=== PATIENT | female | born 1980 | race American Indian/Alaskan Native ===

== ENCOUNTER 2016-10-31 12:40 | Inpatient (IN) | payer MEDICAID ==
--- NOTE | 2016-10-31 13:49 | Emergency Department Report ---
Chief Complaint: Hyperglycemia Stated Complaint: SUGAR HIGH Time Seen by Provider: 10/31/16 13:46 - HPI History of Present Illness: 36 y/o female complain of felling weak and dizziness with frequent urination x 1 week.pt state been out insulin for 3 -4 months .pt denies any prior medication treatment .denies any injury at present . - ROS Review of Systems: per HPI - Exam Vital Signs: Vital Signs 10/31/16 13:25 Temperature 98.6 F Pulse Rate 111 H Respiratory 22 Rate Blood Pressure 153/113 O2 Sat by Pulse 99 Oximetry Physical Exam: GENERAL: The patient is well-developed and well-nourished. Patient is in NAD. HENT: Normocephalic. Atraumatic. Patient has moist mucous membranes. Throat: No erythema, swelling or exudates. EYES: Extraocular motions are intact, PERRL NECK: Supple. No meningitic signs are noted. There is no adenopathy noted. CHEST/LUNGS: Clear to auscultation bilaterally. No wheezing, rales or rhonchi noted. There is no respiratory distress noted. HEART/CARDIOVASCULAR: Regular rate and rhythm. Normal S1 S2. No murmurs, rubs , clicks, or gallops. ABDOMEN: Abdomen is soft, nontender.. Bowel sounds normoactive. There is no abdominal distention. Negative rebound tenderness. : Deferred. SKIN: There is no rash. There is no edema. There is no diaphoresis. NEURO: The patient is A&Ox3. The patient has no focal neurologic deficits. MUSCULOSKELETAL: There is no tenderness or deformity. There is no limitation range of motion. PSYCH: Pt has appropriate mood and affect. MSE screening note: Focused history and physical exam performed. Due to findings the following was ordered: ED Disposition for MSE Condition: Stable
[2016-10-31 15:09] LABS: INR 1.03 (0.87-1.13)
[2016-10-31 15:17] LABS: Anion Gap 23 mmol/L; BUN/Creatinine Ratio 8.75; Blood Urea Nitrogen 7 mg/dL (7-17); Calcium 9.6 mg/dL (8.4-10.2); Carbon Dioxide 21 mmol/L (22-30); Chloride 88.7 mmol/L (98-107); Creatine Kinase 81 units/L (30-135); Potassium 4.4 mmol/L (3.6-5.0); Sodium 128 mmol/L (137-145)
[2016-10-31 15:22] LABS: Creatine Kinase MB < 1.0 ng/mL (0.0-4.0)
[2016-10-31 15:25] LABS: Glucose 571 mg/dL (65-100)
[2016-10-31] MEDS ORDERED: NACL 0.9% 1000 ML 1,000 ML IV ONE (15:58)
[2016-10-31] MEDS ORDERED: ZOFRAN IV ONE (15:59)
--- NOTE | 2016-10-31 16:01 | Emergency Department Report ---
HPI - General Chief Complaint: Hyperglycemia Time Seen by Provider: 10/31/16 15:33 - HPI HPI: This is a 36-year-old Afro-Citizen Of The [place] female who presents to the emergency department with complaint of frequent urination, frequent thirst, nausea, vomiting, diarrhea. Patient also has been feeling dizzy with some intermittent blurry vision. Patient thinks that her sugar must be high. She has been out of both of her insulin for the past 3-4 weeks. She has a primary care doctor, Dr. Nelda Blanca, but missed her last appointment and therefore could not get a refill. She denies any fever, back pain, vaginal bleeding or discharge, abdominal pain. She has not taken anything for symptoms prior to presentation. No recent travel or sick contacts at home. ED Past Medical Hx - Past Medical History Hx Congestive Heart Failure: No Hx Diabetes: Yes Hx Deep Vein Thrombosis: No Hx Asthma: Yes (CHILDHOOD) Hx COPD: No Hx HIV: No Additional medical history: MORBID OBESITY - Surgical History Hx Pacemaker: No Hx Internal Defibrillator: No Additional Surgical History: X2. BOWEL REPAIR - Social History Smoking Status: Current Every Day Smoker - Medications Home Medications: Home Medications Medication Instructions Recorded Confirmed Last Taken Type Glimepiride 1 mg PO DAILY 09/27/15 07/30/16 10/17/15 History HYDROcodone/APAP 7.5-325 10 mg PO PRN PRN 09/27/15 07/30/16 Unknown History Cyclobenzaprine [Flexeril 10 MG 10 mg PO TID PRN #20 tablet 01/15/16 07/30/16 Unknown Rx TAB] Glimepiride [Amaryl] 2 mg PO QAM #60 tablet 01/17/16 07/30/16 Unknown Rx Sulfamethoxazole/Trimethoprim 1 each PO BID #14 tablet 01/17/16 07/30/16 Unknown Rx [Bactrim DS TAB] HYDROcodone/APAP 5-325 [[place] 1 - 2 each PO Q6HR PRN #12 tablet 06/03/16 Unknown Rx 5/325] Ibuprofen [Motrin 800 MG tab] 800 mg PO Q8HR PRN #20 tablet 06/03/16 07/30/16 Unknown Rx Furosemide [Lasix TAB] 40 mg PO QDAY #30 tablet 08/03/16 Unknown Rx Insulin Glargine [Lantus VIAL] 40 units SUB-Q QHS 30 Days 08/03/16 Unknown Rx Insulin Glulisine [Apidra] 20 units SUB-Q AC 30 Days 08/03/16 Unknown Rx Losartan [Cozaar] 50 mg PO QDAY #30 tablet 08/03/16 Unknown Rx ED Review of Systems ROS: Stated complaint: SUGAR HIGH Other details as noted in HPI Comment: All other systems reviewed and negative Constitutional: denies: chills, fever Eyes: vision change. denies: eye pain ENT: denies: ear pain, throat pain Respiratory: denies: cough, shortness of breath, wheezing Cardiovascular: denies: palpitations, edema Endocrine: increased thirst, increased urine Gastrointestinal: nausea, vomiting, diarrhea Genitourinary: frequency. denies: dysuria Musculoskeletal: denies: back pain, joint swelling, arthralgia Skin: denies: rash, lesions Neurological: denies: headache, weakness, numbness Physical Exam - Physical Exam Vital Signs: Vital Signs 10/31/16 13:25 Temperature 98.6 F Pulse Rate 111 H Respiratory 22 Rate Blood Pressure 153/113 O2 Sat by Pulse 99 Oximetry Physical Exam: GENERAL: The patient is well-developed well-nourished. HEENT: Normocephalic. Atraumatic. Extraocular motions are intact. Patient has moist mucous membranes. NECK: Supple. Trachea is midline. CHEST/LUNGS: Clear to auscultation. There is no respiratory distress noted. HEART/CARDIOVASCULAR: Regular. There is mild tachycardia. There is no gallop rub or murmur. ABDOMEN: Abdomen is soft, nontender. Patient has normal bowel sounds. There is no abdominal distention. Morbidly obese habitus. SKIN: There is no rash. There is no diaphoresis. NEURO: The patient is awake, alert, and oriented. The patient is cooperative. The patient has no focal neurologic deficits. The patient has normal speech. MUSCULOSKELETAL: There is no tenderness or deformity. There is no limitation range of motion. There is no evidence of acute injury. ED Course Vital Signs 10/31/16 13:25 Temperature 98.6 F Pulse Rate 111 H Respiratory 22 Rate Blood Pressure 153/113 O2 Sat by Pulse 99 Oximetry ED Medical Decision Making - Lab Data Result diagrams: 10/31/16 14:19 - EKG Data -: EKG Interpreted by Me EKG shows normal: sinus rhythm, axis, intervals, QRS complexes, ST-T waves Rate: normal - EKG Data When compared to previous EKG there are: previous EKG unavailable Interpretation: normal EKG - Medical Decision Making 36-year-old female presents with some nausea, vomiting, dizziness, intermittent blurry vision and uncontrolled diabetes. Patient has a history of noncompliance and uncontrolled diabetes in the past. Patient is been out of her meds for the past 2-3 weeks. Patient appears to be in early diabetic ketoacidosis. Patient has some acidity with a venous pH of about 7.3. She has 17 ketones in the serum. She has an anion gap of 23 and her blood sugar in the serum is 570. Patient started on insulin drip and given IV fluid resuscitation. Patient admitted to the hospital for further evaluation and treatment and has been accepted for admission by the hospitalist, Dr. Dawkins. - Differential Diagnosis DKA, HHNK, viral syndrome Critical Care Time: No Critical care attestation.: If time is entered above; I have spent that time in minutes in the direct care of this critically ill patient, excluding procedure time. ED Disposition Clinical Impression: Hyponatremia, Hyperglycemia DKA (diabetic ketoacidoses) Qualifiers: Diabetes mellitus type: type 1 Diabetes mellitus complication detail: without coma Qualified Code(s): E10.10 - Type 1 diabetes mellitus with ketoacidosis without coma Morbid obesity Qualifiers: Obesity type: unspecified obesity type Qualified Code(s): E66.01 - Morbid ( severe) obesity due to excess calories Disposition: OP ADMITTED IP TO THIS HOSP Is pt being admited?: Yes Condition: Stable Instructions: Diabetic Ketoacidosis (ED) Time of Disposition: 16:52
--- NOTE | 2016-10-31 16:12 | Admit Criteria Form ---
Admission Criteria Documentation: HYPONATREMIA; HYPERNATREMIA; HYPOKALEMIA; HYPERKALEMIA; HYPOCALCEMIA; HYPERCALCEMIA Clinical Indications for Inpatient Care (Place 'X' for any and all applicable criteria): Ongoing inpatient care may be indicated for ANY ONE of the following [G](1)(2)(3 )(5): [X ]I. Hyponatremia with ANY ONE of the following: [ X]a) Sodium less than 130 mEq/L (mmol/L) (new) (6)(22) [ ]b) Sodium less than 135 mEq/L (mmol/L) with ANY ONE of the following: [ ]i) Severe medical etiology requiring inpatient management (eg, heart failure, hypovolemia) [ ]ii) Altered mental status [ ]iii) Seizures [ ]II. Hypernatremia with ANY ONE of the following: [ ]a) Sodium greater than 155 mEq/L (mmol/L) [ ]b) Sodium greater than 150 mEq/L (mmol/L) with ANY ONE of the following: [ ] i) Altered mental status [ ]ii) Seizures [ ]iii) Severe medical etiology (eg, hypovolemia, diabetes insipidus) [ ]iv) Severe weakness [ ]v) Severe medical etiology (eg, hemolysis, infection, drug overdose) [ ]III. Hypokalemia with ANY ONE of the following: [ ]a) Potassium less than 2.5 mEq/L (mmol/L) despite outpatient and emergency treatment [ ]b) Potassium less than 3.0 mEq/L (mmol/L) with ANY ONE of the following: [ ]i) Weakness [ ]ii) Cardiac abnormality (eg, arrhythmia, conduction disturbance) [ ]iii) Cardiac ischemia [ ]iv) Ileus [ ]v) Ongoing medical cause requiring inpatient management. ( e.g., acute renal wasting, SIADH) [ ]vi) Other severe symptoms [ ] IV. Hyperkalemia with ANY ONE of the following: [ ]a) Potassium greater than 6.5 mEq/L (mmol/L) [ ]b) Potassium greater than 5 mEq/L (mmol/L) with ANY ONE of the following: [ ]i) Severe ECG findings [H] [ ]ii) Acute worsening of renal failure (creatinine greater than 2.5 mg/dL (221 micromoles/L) or significant elevation for age and size) [ ] V. Hypocalcemia with ANY ONE of the following: [ ]a) Calcium less than 7 mg/dL (1.75 mmol/L) despite outpatient and emergency treatment(19) [ ]b) Calcium less than 8 mg/dL (2 mmol/L) with significant symptoms or findings; examples include: [ ]i) Cardiac abnormality (eg, arrhythmia or conduction disturbance) [ ]ii) Altered mental status [ ]iii) Seizures [ ]iv) Breathing difficulty [ ]v) Muscle spasms [ ]. Hypercalcemia with ANY ONE of the following: [ ]a) Calcium greater than 14 mg/dL (3.5 mmol/L) [ ]b) Calcium greater than 12 mg/dL (3 mmol/L) with ANY ONE of the following: [ ]i) Significant dehydration or hypovolemia as indicated by ANY ONE of the following(2): [ ]1. Clinically significant dehydration as indicated by ANY ONE of the following: [ ]A. Acute loss of weight from baseline (5% of body weight in adults, 9% in pediatric patients) [ ]B. Hemodynamic instability [ ]C. Acute renal failure [ ]D. Serum sodium greater than 150 mEq/L (mmol/L) [ ]2) Dehydration that is persistent indicated by ALL of the following: [ ]A. Oral rehydration therapy not tolerated or insufficient to adequately correct dehydration [ ]B. Appropriate intravenous treatment (eg, fluids ) does not readily correct dehydration ie, after 12 to 24 hours of treatment) [ ]ii) Significant symptoms or findings; examples include: [ ]1) Altered mental status [ ]2) Cardiac abnormality (eg, arrhythmia, conduction disturbance) [ ]3) Cardiac abnormality (eg, arrhythmia, conduction disturbance) The original [facility] content created by [employer] has been revised. The portions of the content which have been revised are identified through the use of italic text or in bold, and [facility] has neither reviewed nor approved the modified material. All other unmodified content is copyright [facility] Please see references footnoted in the original [facility] edition 2016 Admission Criteria Met: Yes
[2016-10-31 16:17] LABS: Bacteria,Urine 1+ /HPF (Negative); Bilirubin,Urine NEG (Negative); Blood,Urine NEG (Negative); Ketones,Urine 20 mg/dL (Negative); Leukocyte Esterase,Urine MOD (Negative); Nitrite,Urine NEG (Negative); Protein,Urine <15 mg/dL mg/dL (Negative); Urobilinogen,Urine < 2.0 mg/dL (<2.0); WBC,Urine < 1.0 /HPF (0.0-6.0)
[2016-10-31] MEDS ORDERED: D50W (25GM) IV PRN (16:33)
[2016-10-31] MEDS ORDERED: NovoLIN R 100 UNITS in NACL 0.9% 99 ML IV SCH (17:00)
--- NOTE | 2016-10-31 17:25 | History and Physical Report ---
History of Present Illness Date of examination: 10/31/16 Date of admission: 10/31/16 Chief complaint: worsended weakness today urinary frequency for 3 weeks History of present illness: Miss Foss is a 36 yo AAF with DM 2 and has been non compliant with therapy for 3 weeks; she has been having urinary frequency without burning for 3 weeks with increased thirst; this worsened today with extreme weakness and fatigue; nausea but no vomitting; vaginal itching; no fever; was seen in the ER and started on inuslin Gtt for mild / early DKA Past History Past Medical History: diabetes, hypertension Past Surgical History: , bowel surgery (had injury to bowel at C section ) Social history: full code. denies: smoking, alcohol abuse, prescription drug abuse, IV drug use Family history: diabetes, hypertension Medications and Allergies Allergies Allergy/AdvReac Type Severity Reaction Status Date / Time lactose Allergy Unknown Unknown Verified 07/29/15 17:59 penicillin G Allergy Dizziness Verified 09/27/15 15:55 clarithromycin [From Biaxin] AdvReac Shortness Verified 07/29/15 17:59 of Breath Penicillins AdvReac Shortness Verified 07/29/15 17:59 of Breath Home Medications Medication Instructions Recorded Confirmed Last Taken Type Glimepiride 1 mg PO DAILY 09/27/15 07/30/16 10/17/15 History HYDROcodone/APAP 7.5-325 10 mg PO PRN PRN 09/27/15 07/30/16 Unknown History Cyclobenzaprine [Flexeril 10 MG 10 mg PO TID PRN #20 tablet 01/15/16 07/30/16 Unknown Rx TAB] Glimepiride [Amaryl] 2 mg PO QAM #60 tablet 01/17/16 07/30/16 Unknown Rx Sulfamethoxazole/Trimethoprim 1 each PO BID #14 tablet 01/17/16 07/30/16 Unknown Rx [Bactrim DS TAB] HYDROcodone/APAP 5-325 [[place] 1 - 2 each PO Q6HR PRN #12 tablet 06/03/16 Unknown Rx 5/325] Ibuprofen [Motrin 800 MG tab] 800 mg PO Q8HR PRN #20 tablet 06/03/16 07/30/16 Unknown Rx Furosemide [Lasix TAB] 40 mg PO QDAY #30 tablet 10/20/16 Unknown Rx Insulin Glargine [Lantus VIAL] 40 units SUB-Q QHS 30 Days 08/03/16 Unknown Rx Insulin Glulisine [Apidra] 20 units SUB-Q AC 30 Days 08/03/16 Unknown Rx Losartan [Cozaar] 50 mg PO QDAY #30 tablet 08/03/16 Unknown Rx Active Meds: Active Medications Dextrose (D50w (25gm)) 0 ml IV PRN PRN PRN Reason: Hypoglycemia Insulin Human Regular 100 (units/ Sodium Chloride) 100 mls @ 5 mls/hr IV TITR COURTNEY; 5 UNITS/HR PRN Reason: Protocol Review of Systems All systems: negative Constitutional: fatigue, weakness, malaise, no weight loss, no weight gain, no fever, no chills, no sweats Ears, nose, mouth and throat: no ear discharge, no tinnitis, no decreased hearing, no nose pain, no nasal congestion Breasts: normal Cardiovascular: no chest pain, no orthopnea, no palpitations, no rapid/ irregular heart beat Respiratory: cough with sputum, no hemoptysis, no shortness of breath, no wheezing Gastrointestinal: nausea, no vomiting, no diarrhea, no constipation Genitourinary Female: urinary frequency, no dysuria, no urgency Rectal: no pain, no incontinence, no bleeding Musculoskeletal: no neck stiffness, no neck pain, no shooting arm pain, no arm numbness/tingling, no low back pain Integumentary: no rash, no pruritis, no redness, no sores Neurological: no head injury, no transient paralysis, no paralysis, no weakness , no parathesias Psychiatric: no anxiety, no memory loss, no change in sleep habits, no sleep disturbances Endocrine: excessive thirst, polydipsia, polyuria, no cold intolerance, no heat intolerance, no polyphagia Hematologic/Lymphatic: no easy bruising, no easy bleeding Allergic/Immunologic: no urticaria, no allergic rhinitis Exam - Constitutional Vitals: Temp Pulse Resp BP Pulse Ox 98.6 F 94 H 12 131/91 96 10/31/16 13:25 10/31/16 16:00 10/31/16 16:00 10/31/16 16:00 10/31/16 16:00 General appearance: Present: no acute distress, obese (morbid) - EENT Eyes: Present: PERRL, EOM intact. Absent: scleral icterus, conjunctival injection ENT: hearing intact, clear oral mucosa, no oropharyngeal erythema, no poor dentition - Neck Neck: Present: supple, normal ROM. Absent: enlarged thyroid, masses or JVD - Respiratory Respiratory effort: normal Respiratory: negative: diminished, rales, rhonchi, wheezing - Cardiovascular Rhythm: regular Heart Sounds: Present: S1 & S2. Absent: gallop - Extremities Extremities: no ischemia, pulses intact, pulses symmetrical, No edema Peripheral Pulses: within normal limits - Abdominal General gastrointestinal: Present: soft, non-tender, non-distended, normal bowel sounds Female genitourinary: Present: deferred - Rectal Rectal Exam: deferred - Integumentary Integumentary: Present: clear - Musculoskeletal Musculoskeletal: strength equal bilaterally - Psychiatric Psychiatric: appropriate mood/affect, cooperative - Neurologic Neurologic: CNII-XII intact, moves all extremities Results - Labs CBC & Chem 7: 10/31/16 14:19 Labs: Abnormal lab results 10/31/16 10/31/16 10/31/16 Range/Units 13:29 14:19 15:21 Sodium 128 L (137-145) mmol/L Chloride 88.7 L (98-107) mmol/L Carbon Dioxide 21 L (22-30) mmol/L Glucose 571 H* (65-100) mg/dL POC Glucose > 500 H (70-105) Ur Specific [place] 1.033 H (1.003-1.030) Ketones (0.2-2.8) mg/dL 10/31/16 Range/Units 15:53 Sodium (137-145) mmol/L Chloride (98-107) mmol/L Carbon Dioxide (22-30) mmol/L Glucose (65-100) mg/dL POC Glucose (70-105) Ur Specific [place] (1.003-1.030) Ketones 17.2 H (0.2-2.8) mg/dL Assessment and Plan 1. Mild/ Early DKA - will admit as in patient to the ICU as more than 2 MN are needed for treatment; cont insulin gtt and transition to SC insulin when AG is less than 18; iniate DKA protocol; consult ICU team; counselled about the importance of compliance; npo except meds; Hb A1C 2. Benign HTN - restart home meds except lasix for now 3. Morbid obesity - life style modification discussed 4. Vaginal candidiasis- diflucan 5. DVT prophyalxis -lovenox CCT exclusive of all other billable procedures 35 minutes
[2016-10-31 17:42] LABS: Blood Urea Nitrogen 7 mg/dL (7-17); Calcium 9.2 mg/dL (8.4-10.2); Carbon Dioxide 22 mmol/L (22-30); Potassium 4.6 mmol/L (3.6-5.0); Sodium 133 mmol/L (137-145)
[2016-10-31 17:42] LABS: Basophils % (Auto) 0.9 % (0.0-1.8); Eosinophils % (Auto) 1.5 % (0.0-4.3); Hematocrit 41.9 % (30.3-42.9); Hemoglobin 13.5 gm/dl (10.1-14.3); Mean Corpuscular HGB Conc 32 % (30-34); Mean Corpuscular Hemoglobin 28 pg (28-32); Mean Corpuscular Volume 86 fl (79-97); Platelet Count 295 K/mm3 (140-440); Red Blood Count 4.91 M/mm3 (3.65-5.03); Red Cell Distribution Width 14.2 % (13.2-15.2); White Blood Count 8.4 K/mm3 (4.5-11.0)
[2016-10-31 17:43] LABS: Chloride 95.4 mmol/L (98-107)
[2016-10-31 18:00] LABS: Anion Gap 20 mmol/L; Glucose 500 mg/dL (65-100)
[2016-10-31] MEDS ORDERED: DIFLUCAN PO ONE (18:00)
[2016-10-31 18:01] LABS: Phosphorous 3.7 mg/dL (2.5-4.5)
[2016-10-31] MEDS ORDERED: APRESOLINE IV PRN (18:30)
[2016-10-31] MEDS ORDERED: MORPHINE ONE (18:30)
[2016-10-31] MEDS ORDERED: REGLAN IV PRN (18:30)
[2016-10-31] MEDS: MORPHINE IV PRN (18:36)
[2016-10-31] MEDS ORDERED: NACL 0.45% 1000 ML 1,000 ML IV SCH (19:30)
[2016-10-31 19:35] LABS: Anion Gap 21 mmol/L; BUN/Creatinine Ratio 8.75; Blood Urea Nitrogen 7 mg/dL (7-17); Calcium 9.5 mg/dL (8.4-10.2); Carbon Dioxide 22 mmol/L (22-30); Chloride 96.3 mmol/L (98-107); Glucose 283 mg/dL (65-100); Potassium 3.9 mmol/L (3.6-5.0); Sodium 135 mmol/L (137-145)
[2016-10-31 21:47] LABS: Anion Gap 20 mmol/L; BUN/Creatinine Ratio 8.75; Blood Urea Nitrogen 7 mg/dL (7-17); Calcium 9.3 mg/dL (8.4-10.2); Carbon Dioxide 23 mmol/L (22-30); Glucose 165 mg/dL (65-100); Sodium 137 mmol/L (137-145)
[2016-11-01 00:17] LABS: Anion Gap 21 mmol/L; Blood Urea Nitrogen 7 mg/dL (7-17); Calcium 9.1 mg/dL (8.4-10.2); Carbon Dioxide 23 mmol/L (22-30); Chloride 97.3 mmol/L (98-107); Glucose 170 mg/dL (65-100); Potassium 4.4 mmol/L (3.6-5.0); Sodium 137 mmol/L (137-145)
[2016-11-01] MEDS: MORPHINE IV PRN ×2 (07:32→19:25)
[2016-11-01] MEDS ORDERED: D5/0.45NS 1,000 ML IV SCH (08:00)
[2016-11-01] MEDS: COZAAR PO SCH (10:04)
[2016-11-01] MEDS: LOVENOX SUB-Q SCH (10:04)
[2016-11-01 10:22] LABS: Anion Gap 16 mmol/L; Blood Urea Nitrogen 7 mg/dL (7-17); Calcium 8.8 mg/dL (8.4-10.2); Carbon Dioxide 26 mmol/L (22-30); Chloride 97.7 mmol/L (98-107); Glucose 157 mg/dL (65-100); Potassium 3.8 mmol/L (3.6-5.0); Sodium 136 mmol/L (137-145)
--- NOTE | 2016-11-01 11:36 | Consultation ---
History of Present Illness - Reason for Consult Consult date: 11/01/16 DKA, ICU care Requesting physician: RODERICK BARTON - History of Present Illness 36 y/o female with diabetes, admitted with DKA. has been on insulin drip, now Anion Gap has closed and patient is ready for transition off drip. Past History Past Medical History: diabetes, hypertension Past Surgical History: , bowel surgery (had injury to bowel at C section ) Social history: full code. denies: smoking, alcohol abuse, prescription drug abuse, IV drug use Family history: diabetes, hypertension Medications and Allergies Allergies Allergy/AdvReac Type Severity Reaction Status Date / Time lactose Allergy Unknown Unknown Verified 07/29/15 17:59 penicillin G Allergy Dizziness Verified 09/27/15 15:55 clarithromycin [From Biaxin] AdvReac Shortness Verified 07/29/15 17:59 of Breath Penicillins AdvReac Shortness Verified 07/29/15 17:59 of Breath Home Medications Medication Instructions Recorded Confirmed Last Taken Type Furosemide [Lasix TAB] 40 mg PO QDAY #30 tablet 08/03/16 10/31/16 Unknown Rx Insulin Glargine [Lantus VIAL] 40 units SUB-Q QHS 30 Days 08/03/16 10/31/16 Unknown Rx Insulin Glulisine [Apidra] 20 units SUB-Q AC 30 Days 08/03/16 10/31/16 Unknown Rx Losartan [Cozaar] 50 mg PO QDAY #30 tablet 08/03/16 10/31/16 Unknown Rx Active Meds: Active Medications Dextrose (D50w (25gm)) 0 ml IV PRN PRN PRN Reason: Hypoglycemia Enoxaparin Sodium (Lovenox) 40 mg SUB-Q QDAY COURTNEY Last Admin: 11/01/16 10:04 Dose: 40 mg Hydralazine HCl (Apresoline) 10 mg IV Q4HR PRN PRN Reason: SBP >/=160mmHg Insulin Human Regular 100 (units/ Sodium Chloride) 100 mls @ 5 mls/hr IV TITR COURTNEY; 5 UNITS/HR PRN Reason: Protocol Last Titration: 11/01/16 07:57 Dose: 2 units/hr Sodium Chloride (Nacl 0.45% 1000 Ml) 1,000 mls @ 125 mls/hr IV DIRECT COURTNEY Last Admin: 10/31/16 20:00 Dose: 125 mls/hr Dextrose/Sodium Chloride (D5/0.45ns) 1,000 mls @ 125 mls/hr IV DIRECT COURTNEY Last Admin: 11/01/16 08:25 Dose: 125 mls/hr Losartan Potassium (Cozaar) 50 mg PO QDAY COURTNEY Last Admin: 11/01/16 10:04 Dose: 50 mg Metoclopramide HCl (Reglan) 10 mg IV Q6H PRN PRN Reason: Nausea And Vomiting Morphine Sulfate (Morphine) 2 mg IV Q4H PRN PRN Reason: Pain, Moderate (4-6) Last Admin: 11/01/16 07:32 Dose: 2 mg Review of Systems All systems: negative Exam - Constitutional Vitals: Temp Pulse Resp BP Pulse Ox 98.3 F 88 10 L 129/81 97 11/01/16 08:00 11/01/16 10:04 11/01/16 08:00 11/01/16 10:04 11/01/16 08:00 Results - Labs CBC & Chem 7: 10/31/16 17:20 11/01/16 09:48 Labs: Abnormal lab results 10/31/16 10/31/16 10/31/16 Range/Units 17:20 17:20 17:21 [place] % (Auto) 9.7 H (0.0-7.3) % Sodium 133 L (137-145) mmol/L Chloride 95.4 L (98-107) mmol/L Glucose 500 H (65-100) mg/dL POC Glucose (70-105) Hemoglobin A1c 11.2 H (4-6) % 10/31/16 10/31/16 10/31/16 Range/Units 17:42 18:45 19:02 [place] % (Auto) (0.0-7.3) % Sodium 135 L (137-145) mmol/L Chloride 96.3 L (98-107) mmol/L Glucose 283 H (65-100) mg/dL POC Glucose 422 H 333 H (70-105) Hemoglobin A1c (4-6) % 10/31/16 10/31/16 10/31/16 Range/Units 19:49 21:00 23:24 [place] % (Auto) (0.0-7.3) % Sodium (137-145) mmol/L Chloride 97.3 L (98-107) mmol/L Glucose 165 H 170 H (65-100) mg/dL POC Glucose 210 H (70-105) Hemoglobin A1c (4-6) % 11/01/16 11/01/16 11/01/16 Range/Units 00:57 02:10 03:03 [place] % (Auto) (0.0-7.3) % Sodium (137-145) mmol/L Chloride (98-107) mmol/L Glucose (65-100) mg/dL POC Glucose 185 H 159 H 132 H (70-105) Hemoglobin A1c (4-6) % 11/01/16 11/01/16 11/01/16 Range/Units 03:55 05:13 05:57 [place] % (Auto) (0.0-7.3) % Sodium (137-145) mmol/L Chloride (98-107) mmol/L Glucose (65-100) mg/dL POC Glucose 132 H 144 H 141 H (70-105) Hemoglobin A1c (4-6) % 11/01/16 11/01/16 Range/Units 06:45 09:48 [place] % (Auto) (0.0-7.3) % Sodium 136 L (137-145) mmol/L Chloride 97.7 L (98-107) mmol/L Glucose 157 H (65-100) mg/dL POC Glucose 139 H (70-105) Hemoglobin A1c (4-6) % Assessment and Plan 36 y/o female with dka 1. Now that anion GAP has closed, can transition over to regular insulin. And stop insulin drip 2. Will feed patient 3. If tolerates oral, then should be safe for transfer out of ICU. CCT 31 minutes.
--- NOTE | 2016-11-01 11:59 | Progress Note ---
Assessment and Plan Assessment and plan: 1. DKA due to poor compliance continue insulin drip, will transition to Subq insulins today 2. HTN continue current meds, BP controlled 3. Morbid obesity - life style modification discussed 4. Vaginal candidiasis- sp diflucan x 1 5. DVT prophyalxis -lovenox Critical Care time; 35 minutes History Interval history: she feels better, no vomiting, no cp, no wallace, no sob Hospitalist Physical - Physical exam Narrative exam: General: Patient appears well in no distress HEENT: MMM, EOMI cardiac: S1-S2 heard lungs: clear to auscultation, abdomen: soft, nontender, nondistended bowel sounds positive extremities: no edema clubbing or cyanosis Skin: no rash or lesion Neuro: no focal deficit Psych: appropriate behavior and mood, cognition intact - Constitutional Vitals: Temp Pulse Resp BP Pulse Ox 98.3 F 88 10 L 129/81 97 11/01/16 08:00 11/01/16 10:04 11/01/16 08:00 11/01/16 10:04 11/01/16 08:00 General appearance: Present: no acute distress, obese (morbid) Results - Labs CBC & Chem 7: 10/31/16 17:20 11/01/16 09:48 Labs: Laboratory Last Values WBC 8.4 K/mm3 (4.5-11.0) 10/31/16 17:20 RBC 4.91 M/mm3 (3.65-5.03) 10/31/16 17:20 Hgb 13.5 gm/dl (10.1-14.3) 10/31/16 17:20 Hct 41.9 % (30.3-42.9) 10/31/16 17:20 MCV 86 fl (79-97) 10/31/16 17:20 MCH 28 pg (28-32) 10/31/16 17:20 MCHC 32 % (30-34) 10/31/16 17:20 RDW 14.2 % (13.2-15.2) 10/31/16 17:20 Plt Count 295 K/mm3 (140-440) 10/31/16 17:20 Lymph % (Auto) 27.8 % (13.4-35.0) 10/31/16 17:20 [place] % (Auto) 9.7 % (0.0-7.3) H 10/31/16 17:20 Eos % (Auto) 1.5 % (0.0-4.3) 10/31/16 17:20 Baso % (Auto) 0.9 % (0.0-1.8) 10/31/16 17:20 Lymph # 2.4 K/mm3 (1.2-5.4) 10/31/16 17:20 [place] # 0.8 K/mm3 (0.0-0.8) 10/31/16 17:20 Eos # 0.1 K/mm3 (0.0-0.4) 10/31/16 17:20 Baso # 0.1 K/mm3 (0.0-0.1) 10/31/16 17:20 Seg Neutrophils % 60.1 % (40.0-70.0) 10/31/16 17:20 Seg Neutrophils # 5.1 K/mm3 (1.8-7.7) 10/31/16 17:20 PT 13.4 Sec. (12.2-14.9) 10/31/16 14:19 INR 1.03 (0.87-1.13) 10/31/16 14:19 VBG pH 7.336 (7.320-7.420) 10/31/16 15:53 Sodium 136 mmol/L (137-145) L 11/01/16 09:48 Potassium 3.8 mmol/L (3.6-5.0) 11/01/16 09:48 Chloride 97.7 mmol/L (98-107) L 11/01/16 09:48 Carbon Dioxide 26 mmol/L (22-30) 11/01/16 09:48 Anion Gap 16 mmol/L 11/01/16 09:48 BUN 7 mg/dL (7-17) 11/01/16 09:48 Creatinine 0.7 mg/dL (0.7-1.2) 11/01/16 09:48 Estimated GFR > 60 ml/min 11/01/16 09:48 BUN/Creatinine Ratio 10.00 % 11/01/16 09:48 Glucose 157 mg/dL (65-100) H 11/01/16 09:48 POC Glucose 139 (70-105) H 11/01/16 06:45 Hemoglobin A1c 11.2 % (4-6) H 10/31/16 17:20 Osmolality 303 Mosm/kg 10/31/16 19:02 Lactic Acid 1.6 mmol/L (0.7-2.0) 10/31/16 14:19 Calcium 8.8 mg/dL (8.4-10.2) 11/01/16 09:48 Phosphorus 3.7 mg/dL (2.5-4.5) 10/31/16 17:21 Magnesium 2.0 mg/dL (1.7-2.3) 10/31/16 17:21 Total Creatine Kinase 81 units/L (30-135) 10/31/16 14:19 CK-MB (CK-2) < 1.0 ng/mL (0.0-4.0) 10/31/16 14:19 CK-MB (CK-2) Rel Index 1.2 (0-4) 10/31/16 14:19 Troponin T < 0.010 ng/mL (0.00-0.029) 10/31/16 14:19 Urine Color Yellow (Yellow) 10/31/16 15:21 Urine Turbidity Clear (Clear) 10/31/16 15:21 Urine pH 6.0 (5.0-7.0) 10/31/16 15:21 Ur Specific [place] 1.033 (1.003-1.030) H 10/31/16 15:21 Urine Protein <15 mg/dl mg/dL (Negative) 10/31/16 15:21 Urine Glucose (UA) >=500 mg/dL (Negative) 10/31/16 15:21 Urine Ketones 20 mg/dL (Negative) 10/31/16 15:21 Urine Blood Neg (Negative) 10/31/16 15:21 Urine Nitrite Neg (Negative) 10/31/16 15:21 Urine Bilirubin Neg (Negative) 10/31/16 15:21 Urine Urobilinogen < 2.0 mg/dL (<2.0) 10/31/16 15:21 Ur Leukocyte Esterase Mod (Negative) 10/31/16 15:21 Urine WBC (Auto) < 1.0 /HPF (0.0-6.0) 10/31/16 15:21 Urine RBC (Auto) 10.0 /HPF (0.0-6.0) 10/31/16 15:21 U Epithel Cells (Auto) 1.0 /HPF (0-13.0) 10/31/16 15:21 Urine Bacteria (Auto) 1+ /HPF (Negative) 10/31/16 15:21 Urine Yeast (Budding) 1+ /HPF 10/31/16 15:21 Ketones 17.2 mg/dL (0.2-2.8) H 10/31/16 15:53
[2016-11-01] MEDS ORDERED: NOVOLOG SUB-Q SCH (12:00)
[2016-11-01] MEDS: NOVOLOG SUB-Q SCH ×4 (12:00→22:48)
[2016-11-01] MEDS ORDERED: LEVEMIR SUB-Q SCH ×2 (12:00→22:00)
[2016-11-01 18:28] LABS: Anion Gap 19 mmol/L; BUN/Creatinine Ratio 8.57; Blood Urea Nitrogen 6 mg/dL (7-17); Calcium 8.6 mg/dL (8.4-10.2); Carbon Dioxide 22 mmol/L (22-30); Chloride 99.7 mmol/L (98-107); Glucose 270 mg/dL (65-100); Potassium 3.7 mmol/L (3.6-5.0); Sodium 137 mmol/L (137-145)
[2016-11-02] MEDS: MORPHINE IV PRN ×2 (07:27→13:09)
[2016-11-02] MEDS: NOVOLOG SUB-Q SCH ×7 (08:30→22:42)
[2016-11-02] MEDS: LOVENOX SUB-Q SCH (10:25)
[2016-11-02] MEDS: COZAAR PO SCH (10:25)
--- NOTE | 2016-11-02 12:56 | Progress Note ---
Assessment and Plan Assessment and plan: 1. DKA due to poor compliance optmize subq insulins, counseled for 10 minutes about compliance 2. HTN continue current meds, BP controlled 3. Morbid obesity - life style modification discussed 4. Vaginal candidiasis- sp diflucan x 1 5. DVT prophyalxis -lovenox 6. Vaginal yeast infection likely 2/2 uncontrolled dm, miconazole pessary History Interval history: she feels better, no vomiting, no cp, no wallace, no sob, c/o vaginal itching and creamy white discharge Hospitalist Physical - Physical exam Narrative exam: General: Patient appears well in no distress HEENT: MMM, EOMI cardiac: S1-S2 heard lungs: clear to auscultation, abdomen: soft, nontender, nondistended bowel sounds positive extremities: no edema clubbing or cyanosis Skin: no rash or lesion Neuro: no focal deficit Psych: appropriate behavior and mood, cognition intact - Constitutional Vitals: Temp Pulse Resp BP Pulse Ox 98.1 F 74 14 102/67 94 11/02/16 12:00 11/02/16 12:00 11/02/16 12:00 11/02/16 12:00 11/02/16 12:00 General appearance: Present: no acute distress, obese (morbid) Results - Labs CBC & Chem 7: 10/31/16 17:20 11/01/16 17:53 Labs: Laboratory Last Values WBC 8.4 K/mm3 (4.5-11.0) 10/31/16 17:20 RBC 4.91 M/mm3 (3.65-5.03) 10/31/16 17:20 Hgb 13.5 gm/dl (10.1-14.3) 10/31/16 17:20 Hct 41.9 % (30.3-42.9) 10/31/16 17:20 MCV 86 fl (79-97) 10/31/16 17:20 MCH 28 pg (28-32) 10/31/16 17:20 MCHC 32 % (30-34) 10/31/16 17:20 RDW 14.2 % (13.2-15.2) 10/31/16 17:20 Plt Count 295 K/mm3 (140-440) 10/31/16 17:20 Lymph % (Auto) 27.8 % (13.4-35.0) 10/31/16 17:20 [place] % (Auto) 9.7 % (0.0-7.3) H 10/31/16 17:20 Eos % (Auto) 1.5 % (0.0-4.3) 10/31/16 17:20 Baso % (Auto) 0.9 % (0.0-1.8) 10/31/16 17:20 Lymph # 2.4 K/mm3 (1.2-5.4) 10/31/16 17:20 [place] # 0.8 K/mm3 (0.0-0.8) 10/31/16 17:20 Eos # 0.1 K/mm3 (0.0-0.4) 10/31/16 17:20 Baso # 0.1 K/mm3 (0.0-0.1) 10/31/16 17:20 Seg Neutrophils % 60.1 % (40.0-70.0) 10/31/16 17:20 Seg Neutrophils # 5.1 K/mm3 (1.8-7.7) 10/31/16 17:20 PT 13.4 Sec. (12.2-14.9) 10/31/16 14:19 INR 1.03 (0.87-1.13) 10/31/16 14:19 VBG pH 7.336 (7.320-7.420) 10/31/16 15:53 Sodium 137 mmol/L (137-145) 11/01/16 17:53 Potassium 3.7 mmol/L (3.6-5.0) 11/01/16 17:53 Chloride 99.7 mmol/L (98-107) 11/01/16 17:53 Carbon Dioxide 22 mmol/L (22-30) 11/01/16 17:53 Anion Gap 19 mmol/L 11/01/16 17:53 BUN 6 mg/dL (7-17) L 11/01/16 17:53 Creatinine 0.7 mg/dL (0.7-1.2) 11/01/16 17:53 Estimated GFR > 60 ml/min 11/01/16 17:53 BUN/Creatinine Ratio 8.57 % 11/01/16 17:53 Glucose 270 mg/dL (65-100) H 11/01/16 17:53 POC Glucose 376 (70-105) H 11/02/16 11:27 Hemoglobin A1c 11.2 % (4-6) H 10/31/16 17:20 Osmolality 303 Mosm/kg 10/31/16 19:02 Lactic Acid 1.6 mmol/L (0.7-2.0) 10/31/16 14:19 Calcium 8.6 mg/dL (8.4-10.2) 11/01/16 17:53 Phosphorus 3.7 mg/dL (2.5-4.5) 10/31/16 17:21 Magnesium 2.0 mg/dL (1.7-2.3) 10/31/16 17:21 Total Creatine Kinase 81 units/L (30-135) 10/31/16 14:19 CK-MB (CK-2) < 1.0 ng/mL (0.0-4.0) 10/31/16 14:19 CK-MB (CK-2) Rel Index 1.2 (0-4) 10/31/16 14:19 Troponin T < 0.010 ng/mL (0.00-0.029) 10/31/16 14:19 Urine Color Yellow (Yellow) 10/31/16 15:21 Urine Turbidity Clear (Clear) 10/31/16 15:21 Urine pH 6.0 (5.0-7.0) 10/31/16 15:21 Ur Specific [place] 1.033 (1.003-1.030) H 10/31/16 15:21 Urine Protein <15 mg/dl mg/dL (Negative) 10/31/16 15:21 Urine Glucose (UA) >=500 mg/dL (Negative) 10/31/16 15:21 Urine Ketones 20 mg/dL (Negative) 10/31/16 15:21 Urine Blood Neg (Negative) 10/31/16 15:21 Urine Nitrite Neg (Negative) 10/31/16 15:21 Urine Bilirubin Neg (Negative) 10/31/16 15:21 Urine Urobilinogen < 2.0 mg/dL (<2.0) 10/31/16 15:21 Ur Leukocyte Esterase Mod (Negative) 10/31/16 15:21 Urine WBC (Auto) < 1.0 /HPF (0.0-6.0) 10/31/16 15:21 Urine RBC (Auto) 10.0 /HPF (0.0-6.0) 10/31/16 15:21 U Epithel Cells (Auto) 1.0 /HPF (0-13.0) 10/31/16 15:21 Urine Bacteria (Auto) 1+ /HPF (Negative) 10/31/16 15:21 Urine Yeast (Budding) 1+ /HPF 10/31/16 15:21 Ketones 17.2 mg/dL (0.2-2.8) H 10/31/16 15:53
[2016-11-02] MEDS ORDERED: LEVEMIR SUB-Q SCH (22:00)
[2016-11-02] MEDS ORDERED: MONISTAT VG SCH (22:00)
[2016-11-02] MEDS: NEURONTIN PO SCH (22:35)
[2016-11-03] MEDS: MORPHINE IV PRN ×2 (07:33→14:35)
[2016-11-03] MEDS: NEURONTIN PO SCH ×2 (07:35→14:33)
[2016-11-03] MEDS: NOVOLOG SUB-Q SCH ×6 (08:46→17:11)
[2016-11-03] MEDS: LOVENOX SUB-Q SCH (10:48)
[2016-11-03] MEDS: COZAAR PO SCH (10:50)
--- NOTE | 2016-11-03 14:06 | Discharge Summary ---
Providers - Providers Date of Admission: 10/31/16 16:57 Attending physician: JOSE ALANIS MD Primary care physician: VIRAL DURAN MD Hospitalization Condition: Stable Hospital course: 28-year-old woman with a past medical history of uncontrolled diabetes who had traveled to [place], run out of insulin and did not have proximity to her doctor to get a new prescription. She went on to start having polyuria polydipsia feeling very unwell and fatigued lethargy. She was admitted to hospital with DKA, she was admitted to the ICU treated with IV insulin drip and IV fluids, she clinically improved and was counseled about the importance of adherence with her medications even when she is out of town. She had vaginal yeast infection for which was treated with Diflucan and miconazole. Discharge diagnoses 1. DKA due to poor compliance 2. HTN Continued on her home meds 3. Morbid obesity - life style modification discussed 3. Vaginal candidiasis- sp diflucan x 1 and miconazole pessary 4. Diabetic neuropathy Started on gabapentin during this admission Disposition: DISCHARGED TO HOME OR SELFCARE Time spent for discharge: 35 minutes Core Measure Documentation - Palliative Care Palliative Care/ Comfort Measures: Not Applicable - Core Measures Any of the following diagnoses?: none Exam - Constitutional Vitals: Temp Pulse Resp BP Pulse Ox 98.3 F 81 16 121/81 96 11/03/16 07:00 11/03/16 10:50 11/03/16 07:00 11/03/16 10:50 11/03/16 07:00 General appearance: Present: no acute distress, well-nourished - EENT Eyes: Present: PERRL ENT: hearing intact, clear oral mucosa - Neck Neck: Present: supple, normal ROM - Respiratory Respiratory effort: normal Respiratory: bilateral: CTA - Cardiovascular Heart Sounds: Present: S1 & S2. Absent: rub, click - Extremities Extremities: pulses symmetrical, No edema Peripheral Pulses: within normal limits - Abdominal General gastrointestinal: Present: soft, non-tender, non-distended, normal bowel sounds Female genitourinary: Present: normal - Integumentary Integumentary: Present: clear, warm, dry - Musculoskeletal Musculoskeletal: gait normal, strength equal bilaterally - Psychiatric Psychiatric: appropriate mood/affect, intact judgment & insight - Neurologic Neurologic: CNII-XII intact, moves all extremities Plan Follow up with: PRIMARY CARE, [Primary Care Provider] - 3-5 Days Prescriptions: Insulin Glargine [Lantus VIAL] 40 units SUB-Q QHS 30 Days Miconazole [Monistat Vag Suppos] 100 mg VG QHS #7 supp.vag Insulin Glulisine [Apidra] 20 units SUB-Q AC 30 Days Losartan [Cozaar] 50 mg PO QDAY #30 tablet Furosemide [Lasix TAB] 40 mg PO QDAY #30 tablet Gabapentin [Neurontin] 300 mg PO Q8HR #90 capsule
[2016-11-03 18:31] VITALS: BP 133/68
== END 2016-11-03 18:54 | disposition home or self-care (01) | DRG 638 ==
LOC: ED 12:40 → CC1 16:57 → 3A 11-02 18:34
PROVIDERS: ADMIT Hospitalist; ATTEND Internal Medicine
DX: E10.10 Type 1 diabetes mellitus with ketoacidosis without coma (principal); E87.1 Hypo-osmolality and hyponatremia; Z68.44 Body mass index [BMI] 60.0-69.9, adult; E66.01 Morbid (severe) obesity due to excess calories; B37.3 Candidiasis of vulva and vagina; I10 Essential (primary) hypertension; J45.909 Unspecified asthma, uncomplicated; E10.40 Type 1 diabetes mellitus with diabetic neuropathy, unspecified; F17.200 Nicotine dependence, unspecified, uncomplicated; Z79.899 Other long term (current) drug therapy; Z83.3 Family history of diabetes mellitus; Z82.49 Family history of ischemic heart disease and other diseases of the circulatory system; Z88.0 Allergy status to penicillin; Z88.1 Allergy status to other antibiotic agents; Z91.011 Allergy to milk products; Z71.89 Other specified counseling
CPT/HCPCS: 36415; 80048; 81001; 82010; 82140; 82550; 82553; 82805; 82962; 83036; 83735; 83930; 84100; 84484; 85025; 85610; 93005; 93010; 96361; 96374; J1650; J1815; J1818; J2270; J2405; J2765; J7030

== ENCOUNTER 2017-03-13 16:31 | Emergency (ER) | payer MEDICAID ==
[2017-03-13 18:29] LABS: Hematocrit 41.7 % (30.3-42.9); Hemoglobin 13.4 gm/dl (10.1-14.3); Mean Corpuscular HGB Conc 32 % (30-34); Mean Corpuscular Hemoglobin 28 pg (28-32); Mean Corpuscular Volume 87 fl (79-97); Platelet Count 334 K/mm3 (140-440); Red Blood Count 4.79 M/mm3 (3.65-5.03); Red Cell Distribution Width 14.4 % (13.2-15.2)
[2017-03-13 18:30] LABS: Basophils % (Auto) 0.7 % (0.0-1.8); Eosinophils % (Auto) 1.8 % (0.0-4.3)
[2017-03-13 18:47] LABS: Anion Gap 18 mmol/L; BUN/Creatinine Ratio 11.42; Blood Urea Nitrogen 8 mg/dL (7-17); Calcium 9.4 mg/dL (8.4-10.2); Carbon Dioxide 26 mmol/L (22-30); Chloride 89.7 mmol/L (98-107); Potassium 4.6 mmol/L (3.6-5.0); Sodium 129 mmol/L (137-145)
[2017-03-13 19:32] LABS: Glucose 536 mg/dL (65-100)
[2017-03-13 20:51] LABS: Bilirubin,Urine NEG (Negative); Blood,Urine NEG (Negative); Ketones,Urine NEG (Negative); Leukocyte Esterase,Urine SM (Negative); Mucus,Urine FEW /HPF; Nitrite,Urine NEG (Negative); Protein,Urine <15 mg/dL mg/dL (Negative); Urobilinogen,Urine < 2.0 mg/dL (<2.0)
[2017-03-14] MEDS ORDERED: NACL 0.9% 1000 ML 1,000 ML IV ONE ×2 (00:51→03:09)
[2017-03-14 01:37] LABS: Alanine Aminotransferase 13 units/L (7-56); Albumin 3.1 g/dL (3.9-5); Albumin/Globulin Ratio 0.7 %; Alkaline Phosphatase 120 units/L (35-129); Lipase 21 units/L (13-60); Total Protein 7.4 g/dL (6.3-8.2)
[2017-03-14 02:01] LABS: Bilirubin,Direct < 0.2 mg/dL (0-0.2)
[2017-03-14] MEDS ORDERED: TYLENOL PO ONE (03:10)
--- NOTE | 2017-03-14 03:15 | Emergency Department Report ---
HPI - General Chief Complaint: Hyperglycemia Time Seen by Provider: 03/14/17 00:49 - HPI HPI: The patient is a 37-year-old female whom presents for evaluation of abdominal pain and elevated blood sugar. The patient reports 1 week of abdominal pain, epigastric in location, cramping in quality, 7/10 in severity, and associated with nausea, nonbilious emesis, polydipsia, and polyuria. She also shares that she found her blood sugar to be severely elevated earlier today. The patient denies fever, chest pain, dyspnea, cough, diarrhea, blood in the stool, dark tarry stool, dysuria, hematuria, flank pain, genital discharge. ED Past Medical Hx - Past Medical History Hx Congestive Heart Failure: No Hx Diabetes: Yes Hx Deep Vein Thrombosis: No Hx Arthritis: No Hx Asthma: Yes (CHILDHOOD) Hx COPD: No Hx HIV: No Additional medical history: MORBID OBESITY - Surgical History Hx Pacemaker: No Hx Internal Defibrillator: No Additional Surgical History: X2. BOWEL REPAIR - Social History Smoking Status: Current Every Day Smoker - Medications Home Medications: Home Medications Medication Instructions Recorded Confirmed Last Taken Type Furosemide [Lasix TAB] 40 mg PO QDAY #30 tablet 11/03/16 03/14/17 Unknown Rx Gabapentin [Neurontin] 300 mg PO Q8HR #90 capsule 11/03/16 03/14/17 Unknown Rx Insulin Glulisine [Apidra] 20 units SUB-Q AC 30 Days 11/03/16 03/14/17 Unknown Rx Losartan [Cozaar] 50 mg PO QDAY #30 tablet 11/03/16 03/14/17 Unknown Rx Miconazole [Monistat Vag Suppos] 100 mg VG QHS #7 supp.vag 11/03/16 03/14/17 Unknown Rx [place] Solostar 50 units SUB-Q HS #1500 units 03/14/17 Unknown Rx ED Review of Systems ROS: Stated complaint: HIGH BLOOD SUGAR Other details as noted in HPI Constitutional: denies: fever ENT: denies: throat or neck pain Respiratory: denies: cough, shortness of breath Cardiovascular: denies: chest pain Endocrine: denies unexplained weight loss or gain Gastrointestinal: denies: abdominal pain, nausea Genitourinary: denies: dysuria Musculoskeletal: denies: leg swelling Skin: denies: rash Neurological: denies: headache Hematological/Lymphatic: denies: easy bleeding or easy bruising Psych: denies sadness or hopelessness Physical Exam - Physical Exam Vital Signs: Vital Signs 03/13/17 03/14/17 18:08 01:57 Temperature 97.9 F Pulse Rate 95 H 96 H Respiratory 16 16 Rate Blood Pressure 145/91 Blood Pressure 122/77 [Left] O2 Sat by Pulse 99 95 Oximetry Physical Exam: General: well-nourished, well-developed, no acute distress Head: Normocephalic, atraumatic Eyes: normal sclera ENT: Mucous membranes are pale and dry Neck: No neck stiffness, no cervical adenopathy Respiratory: Breath sounds equal bilaterally, no wheezing, rales, or rhonchi Cardio: S1 and S2 present, no murmurs, rubs, gallops, capillary refill is delayed Abdomen: Normoactive bowel sounds, soft abdomen, epigastric tenderness to palpation present, no rigidity, no guarding or rebound tenderness Musc: No pitting edema Skin: No rash Neuro: no facial drooping, normal speech Psych: Normal affect ED Course Vital Signs 03/13/17 03/14/17 18:08 01:57 Temperature 97.9 F Pulse Rate 95 H 96 H Respiratory 16 16 Rate Blood Pressure 145/91 Blood Pressure 122/77 [Left] O2 Sat by Pulse 99 95 Oximetry ED Medical Decision Making - Lab Data Result diagrams: 03/13/17 Unknown 03/13/17 Unknown - Medical Decision Making The patient was seen and examined by myself. The patient is placed on a telemetry monitor and continuous pulse ox. On initial evaluation, the patient was found to be in no distress. Evaluation orders are placed. IV access is established and the patient is given 1 L normal saline fluid bolus and Zofran for nausea, and a tab of tylenol for her pain. Lab results reveal significantly elevated glucose of 536, with normal venous pH, anion gap, and bicarbonate, not consistent with DKA. The patient is given multiple IV insulin doses for treatment of her hyperglycemia. On repeat Accu-Chek the patient's blood sugars found to be <300. The patient was reevaluated and reported that their symptoms were markedly improved. The patient is stable for discharge with outpatient follow-up. The patient is given follow-up and return instructions. The patient expressed understanding and agreed with the plan. The patient is discharged in stable condition. Critical care attestation.: If time is entered above; I have spent that time in minutes in the direct care of this critically ill patient, excluding procedure time. ED Disposition Clinical Impression: Acute hyperglycemia, Dehydration, Abdominal pain, acute, epigastric, Hyponatremia Disposition: DISCHARGED TO HOME OR SELFCARE Is pt being admited?: No Does the pt Need Aspirin: No Condition: Stable Instructions: Diabetes Mellitus Type 2 in Adults (ED), Dehydration (ED), Acute Abdominal Pain (ED) Prescriptions: Geoffrey Pillai 50 units SUB-Q HS #1500 units Referrals: VERNON ALEMAN DO [Primary Care Provider] - 3-5 Days Time of Disposition: 03:15
[2017-03-14] MEDS ORDERED: ZOFRAN IV ONE (03:19)
[2017-03-14 07:15] VITALS: BP 123/69
== END 2017-03-14 07:00 | disposition home or self-care (01) ==
LOC: ED 16:31
DX: E11.65 Type 2 diabetes mellitus with hyperglycemia (principal); E86.0 Dehydration; R10.13 Epigastric pain; E87.1 Hypo-osmolality and hyponatremia; J45.909 Unspecified asthma, uncomplicated; E66.01 Morbid (severe) obesity due to excess calories; F17.200 Nicotine dependence, unspecified, uncomplicated
CPT/HCPCS: 36415; 80048; 80074; 81001; 82805; 82962; 83690; 84703; 85025; 96361; 96374; 96375; 96376; 99284; J2405; J7030; J1815

== ENCOUNTER 2017-09-07 17:53 | Inpatient (IN) | payer MEDICAID ==
[2017-09-07 19:16] LABS: Bacteria,Urine 1+ /HPF (Negative); Bilirubin,Urine NEG (Negative); Blood,Urine SM (Negative); Ketones,Urine 80 mg/dL (Negative); Leukocyte Esterase,Urine LG (Negative); Mucus,Urine FEW /HPF; Nitrite,Urine NEG (Negative); Protein,Urine <15 mg/dL mg/dL (Negative); Urobilinogen,Urine < 2.0 mg/dL (<2.0)
[2017-09-07 19:31] LABS: Anion Gap 25 mmol/L; BUN/Creatinine Ratio 13; Blood Urea Nitrogen 9 mg/dL (7-17); Calcium 9.7 mg/dL (8.4-10.2); Carbon Dioxide 20 mmol/L (22-30); Chloride 89.6 mmol/L (98-107); Sodium 130 mmol/L (137-145)
[2017-09-07 19:53] LABS: Glucose 649 mg/dL (65-100)
[2017-09-07 20:27] LABS: Basophils % (Auto) 0.4 % (0.0-1.8); Eosinophils % (Auto) 0.8 % (0.0-4.3); Hematocrit 42.4 % (30.3-42.9); Hemoglobin 13.3 gm/dl (10.1-14.3); Mean Corpuscular HGB Conc 31 % (30-34); Mean Corpuscular Hemoglobin 28 pg (28-32); Mean Corpuscular Volume 90 fl (79-97); Platelet Count 314 K/mm3 (140-440); Red Blood Count 4.73 M/mm3 (3.65-5.03); Red Cell Distribution Width 15.6 % (13.2-15.2); White Blood Count 11.2 K/mm3 (4.5-11.0)
[2017-09-07] MEDS ORDERED: NACL 0.9% 1000 ML 1,000 ML IV ONE (21:32)
[2017-09-07] MEDS ORDERED: D50W (25GM) Syringe IV PRN (21:32)
[2017-09-07] MEDS ORDERED: ZOFRAN IV ONE (21:42)
[2017-09-07] MEDS ORDERED: NITRO-BID 2% TP ONE (21:42)
[2017-09-07] MEDS ORDERED: SUBLIMAZE IV ONE (21:42)
--- NOTE | 2017-09-07 21:46 | Emergency Department Report ---
HPI - General Chief Complaint: Hyperglycemia Time Seen by Provider: 09/07/17 21:32 - HPI HPI: Room 8 The patient is a 37-year-old female presenting with a chief complaint of hyperglycemia. The patient states she checked her blood sugar this afternoon and it read high prompting her to come to the ED. The patient states she is not had her Tujeo for 2-3 weeks. The patient has had intermittent compliance with her NovoLog. The patient states for 2 weeks she has had a constant substernal chest pain and feels as though someone is sitting on her chest. Patient also admits to midepigastric abdominal pain chronically. The patient states she has had shortness of breath and nausea/vomiting with her chest pain. The patient admits to polyuria for one week. The patient states she's never had a stress test or cardiac catheterization Location: Chest, see above Duration: [See above] Quality: Pressure Severity: 05/24 Modifying factors: [see above] Context: [see above] Mode of transportation: Unknown ED Past Medical Hx - Past Medical History Hx Diabetes: Yes Hx Asthma: Yes (CHILDHOOD) Additional medical history: MORBID OBESITY - Surgical History Additional Surgical History: X2. BOWEL REPAIR - Family History Family history: no significant - Social History Smoking Status: Current Every Day Smoker (1/3 pack per day) Substance Use Type: None (denies illicit drug use) - Medications Home Medications: Home Medications Medication Instructions Recorded Confirmed Last Taken Type Furosemide [Lasix TAB] 40 mg PO QDAY #30 tablet 11/03/16 03/14/17 Unknown Rx Gabapentin [Neurontin] 300 mg PO Q8HR #90 capsule 11/03/16 03/14/17 Unknown Rx Insulin Glulisine [Apidra] 20 units SUB-Q AC 30 Days units 11/03/16 03/14/17 Unknown Rx Losartan [Cozaar] 50 mg PO QDAY #30 tablet 11/03/16 03/14/17 Unknown Rx Miconazole [Monistat Vag Suppos] 100 mg VG QHS #7 supp.vag 11/03/16 03/14/17 Unknown Rx Toujeo Solostar 50 units SUB-Q HS #1500 units 03/14/17 Unknown Rx ED Review of Systems ROS: Stated complaint: HYPERGLYCEMIC Other details as noted in HPI Constitutional: malaise. denies: diaphoresis Respiratory: shortness of breath Cardiovascular: chest pain Endocrine: increased urine Gastrointestinal: abdominal pain, nausea, vomiting Genitourinary: frequency Musculoskeletal: myalgia Physical Exam - Physical Exam Vital Signs: Vital Signs 09/07/17 09/07/17 18:05 20:53 Temperature 98.5 F 98.9 F Pulse Rate 119 H 109 H Respiratory 22 20 Rate Blood Pressure 140/88 Blood Pressure 121/65 [Left] O2 Sat by Pulse 99 97 Oximetry Physical Exam: GENERAL: The patient is well-developed well-nourished female lying on stretcher not appearing to be in acute distress. [] HEENT: Normocephalic. Atraumatic. Extraocular motions are intact. Patient has moist mucous membranes. NECK: Supple. Trachea midline CHEST/LUNGS: Clear to auscultation. There is no respiratory distress noted. HEART/CARDIOVASCULAR: Regular. There is tachycardia. There is no gallop rub or murmur. ABDOMEN: Abdomen is soft, with tenderness to palpation in the midepigastric region. Patient has normal bowel sounds. There is no abdominal distention. SKIN: There is no rash. There is no edema. There is no diaphoresis. NEURO: The patient is awake, alert, and oriented. The patient is cooperative. The patient has normal speech MUSCULOSKELETAL: There is no evidence of acute injury. ED Course Vital Signs 09/07/17 09/07/17 18:05 20:53 Temperature 98.5 F 98.9 F Pulse Rate 119 H 109 H Respiratory 22 20 Rate Blood Pressure 140/88 Blood Pressure 121/65 [Left] O2 Sat by Pulse 99 97 Oximetry ED Medical Decision Making - Lab Data Result diagrams: 09/07/17 18:44 09/07/17 18:44 Laboratory Tests 09/07/17 09/07/17 09/07/17 18:10 18:14 18:44 WBC 11.2 H RBC 4.73 Hgb 13.3 Hct 42.4 MCV 90 MCH 28 MCHC 31 RDW 15.6 H Plt Count 314 Lymph % (Auto) 18.2 Day % (Auto) 8.1 H Eos % (Auto) 0.8 Baso % (Auto) 0.4 Lymph # 2.0 Day # 0.9 H Eos # 0.1 Baso # 0.0 Seg Neutrophils % 72.5 H Seg Neutrophils # 8.1 H VBG pH Sodium Potassium Chloride Carbon Dioxide Anion Gap BUN Creatinine Estimated GFR BUN/Creatinine Ratio Glucose POC Glucose > 500 H Calcium Phosphorus Magnesium Total Creatine Kinase CK-MB (CK-2) CK-MB (CK-2) Rel Index Troponin T Urine Color Yellow Urine Turbidity Clear Urine pH 5.0 Ur Specific [place] 1.031 H Urine Protein <15 mg/dl Urine Glucose (UA) >=500 Urine Ketones 80 Urine Blood Sm Urine Nitrite Neg Urine Bilirubin Neg Urine Urobilinogen < 2.0 Ur Leukocyte Esterase Lg Urine WBC (Auto) 19.0 H Urine RBC (Auto) 47.0 U Epithel Cells (Auto) 1.0 Urine Bacteria (Auto) 1+ Urine Mucus Few Urine Yeast (Budding) 2+ 09/07/17 09/07/17 09/07/17 18:44 18:44 21:32 WBC RBC Hgb Hct MCV MCH MCHC RDW Plt Count Lymph % (Auto) Day % (Auto) Eos % (Auto) Baso % (Auto) Lymph # Day # Eos # Baso # Seg Neutrophils % Seg Neutrophils # VBG pH 7.310 L Sodium 130 L Potassium 5.0 Chloride 89.6 L Carbon Dioxide 20 L Anion Gap 25 BUN 9 Creatinine 0.7 Estimated GFR > 60 BUN/Creatinine Ratio 13 Glucose 649 H* POC Glucose Calcium 9.7 Phosphorus 4.00 Magnesium 2.10 Total Creatine Kinase CK-MB (CK-2) CK-MB (CK-2) Rel Index Troponin T Urine Color Urine Turbidity Urine pH Ur Specific [place] Urine Protein Urine Glucose (UA) Urine Ketones Urine Blood Urine Nitrite Urine Bilirubin Urine Urobilinogen Ur Leukocyte Esterase Urine WBC (Auto) Urine RBC (Auto) U Epithel Cells (Auto) Urine Bacteria (Auto) Urine Mucus Urine Yeast (Budding) 09/07/17 09/07/17 21:39 21:40 WBC RBC Hgb Hct MCV MCH MCHC RDW Plt Count Lymph % (Auto) Day % (Auto) Eos % (Auto) Baso % (Auto) Lymph # Day # Eos # Baso # Seg Neutrophils % Seg Neutrophils # VBG pH Sodium Potassium Chloride Carbon Dioxide Anion Gap BUN Creatinine Estimated GFR BUN/Creatinine Ratio Glucose POC Glucose Calcium Phosphorus Magnesium Total Creatine Kinase 84 CK-MB (CK-2) 1.1 CK-MB (CK-2) Rel Index 1.3 Troponin T < 0.010 Urine Color Urine Turbidity Urine pH Ur Specific [place] Urine Protein Urine Glucose (UA) Urine Ketones Urine Blood Urine Nitrite Urine Bilirubin Urine Urobilinogen Ur Leukocyte Esterase Urine WBC (Auto) Urine RBC (Auto) U Epithel Cells (Auto) Urine Bacteria (Auto) Urine Mucus Urine Yeast (Budding) Laboratory Tests 09/07/17 09/07/17 09/07/17 18:10 18:14 18:44 WBC 11.2 H RBC 4.73 Hgb 13.3 Hct 42.4 MCV 90 MCH 28 MCHC 31 RDW 15.6 H Plt Count 314 Lymph % (Auto) 18.2 Day % (Auto) 8.1 H Eos % (Auto) 0.8 Baso % (Auto) 0.4 Lymph # 2.0 Day # 0.9 H Eos # 0.1 Baso # 0.0 Seg Neutrophils % 72.5 H Seg Neutrophils # 8.1 H VBG pH Sodium Potassium Chloride Carbon Dioxide Anion Gap BUN Creatinine Estimated GFR BUN/Creatinine Ratio Glucose POC Glucose > 500 H Calcium Phosphorus Magnesium Total Creatine Kinase CK-MB (CK-2) CK-MB (CK-2) Rel Index Troponin T Urine Color Yellow Urine Turbidity Clear Urine pH 5.0 Ur Specific [place] 1.031 H Urine Protein <15 mg/dl Urine Glucose (UA) >=500 Urine Ketones 80 Urine Blood Sm Urine Nitrite Neg Urine Bilirubin Neg Urine Urobilinogen < 2.0 Ur Leukocyte Esterase Lg Urine WBC (Auto) 19.0 H Urine RBC (Auto) 47.0 U Epithel Cells (Auto) 1.0 Urine Bacteria (Auto) 1+ Urine Mucus Few Urine Yeast (Budding) 2+ 09/07/17 09/07/17 09/07/17 18:44 18:44 21:32 WBC RBC Hgb Hct MCV MCH MCHC RDW Plt Count Lymph % (Auto) Day % (Auto) Eos % (Auto) Baso % (Auto) Lymph # Day # Eos # Baso # Seg Neutrophils % Seg Neutrophils # VBG pH 7.310 L Sodium 130 L Potassium 5.0 Chloride 89.6 L Carbon Dioxide 20 L Anion Gap 25 BUN 9 Creatinine 0.7 Estimated GFR > 60 BUN/Creatinine Ratio 13 Glucose 649 H* POC Glucose Calcium 9.7 Phosphorus 4.00 Magnesium 2.10 Total Creatine Kinase CK-MB (CK-2) CK-MB (CK-2) Rel Index Troponin T Urine Color Urine Turbidity Urine pH Ur Specific [place] Urine Protein Urine Glucose (UA) Urine Ketones Urine Blood Urine Nitrite Urine Bilirubin Urine Urobilinogen Ur Leukocyte Esterase Urine WBC (Auto) Urine RBC (Auto) U Epithel Cells (Auto) Urine Bacteria (Auto) Urine Mucus Urine Yeast (Budding) 09/07/17 09/07/17 21:39 21:40 WBC RBC Hgb Hct MCV MCH MCHC RDW Plt Count Lymph % (Auto) Day % (Auto) Eos % (Auto) Baso % (Auto) Lymph # Day # Eos # Baso # Seg Neutrophils % Seg Neutrophils # VBG pH Sodium Potassium Chloride Carbon Dioxide Anion Gap BUN Creatinine Estimated GFR BUN/Creatinine Ratio Glucose POC Glucose Calcium Phosphorus Magnesium Total Creatine Kinase 84 CK-MB (CK-2) 1.1 CK-MB (CK-2) Rel Index 1.3 Troponin T < 0.010 Urine Color Urine Turbidity Urine pH Ur Specific [place] Urine Protein Urine Glucose (UA) Urine Ketones Urine Blood Urine Nitrite Urine Bilirubin Urine Urobilinogen Ur Leukocyte Esterase Urine WBC (Auto) Urine RBC (Auto) U Epithel Cells (Auto) Urine Bacteria (Auto) Urine Mucus Urine Yeast (Budding) - EKG Data -: EKG Interpreted by Ca EKG shows normal: sinus rhythm Rate: tachycardia (111 bpm) - EKG Data When compared to previous EKG there are: previous EKG unavailable Interpretation: other (no ischemic changes seen) - Differential Diagnosis DKA, ACS, GERD, pericarditis Critical care attestation.: If time is entered above; I have spent that time in minutes in the direct care of this critically ill patient, excluding procedure time. ED Disposition Clinical Impression: DKA (diabetic ketoacidoses), Chest pain, UTI (urinary tract infection) Disposition: OP ADMIT IP TO THIS HOSP Is pt being admited?: Yes Does the pt Need Aspirin: Yes Condition: Serious Instructions: Chest Pain (ED), Diabetic Ketoacidosis (ED) Referrals: PRIMARY CARE,MD [Primary Care Provider] - 3-5 Days Time of Disposition: 22:22 (hospitalist paged)
[2017-09-07] MEDS ORDERED: ASPIRIN PO ONE (21:48)
[2017-09-07 21:58] LABS: Creatine Kinase MB 1.1 ng/mL (0.0-4.0)
[2017-09-07 22:12] LABS: Magnesium 2.1 mg/dL (1.7-2.3)
[2017-09-07] MEDS ORDERED: BACTRIM DS PO ONE (22:14)
[2017-09-07 22:28] LABS: Anion Gap 24 mmol/L; BUN/Creatinine Ratio 13; Blood Urea Nitrogen 9 mg/dL (7-17); Calcium 9.2 mg/dL (8.4-10.2); Carbon Dioxide 19 mmol/L (22-30); Chloride 92.8 mmol/L (98-107); Potassium 4.7 mmol/L (3.6-5.0); Sodium 131 mmol/L (137-145)
[2017-09-07 22:50] LABS: Glucose 527 mg/dL (65-100)
[2017-09-07] MEDS: NovoLIN R 100 UNITS in NACL 0.9% 99 ML IV SCH (22:52)
[2017-09-07] MEDS ORDERED: ZOFRAN IV PRN (23:19)
[2017-09-07] MEDS ORDERED: MILK OF MAGNESIA PO PRN (23:19)
[2017-09-07] MEDS ORDERED: TYLENOL PO PRN (23:19)
[2017-09-07] MEDS ORDERED: DULCOLAX PR PRN (23:19)
--- NOTE | 2017-09-07 23:19 | History and Physical Report ---
History of Present Illness Date of examination: 09/07/17 History of present illness: 37-year-old woman with a history of hypertension, diabetes comes to the emergency room with complaints of nausea vomiting, multiple episodes. She checked her fingersticks today and it was high so she came to the emergency room. Patient stated she has been out of her insulin for 2 weeks. Also complaining of chest pain in the epigastric area 2 weeks, feels like someone sitting on her chest, constant, intensity 7/10, no radiation, cannot identify exacerbating or relieving factors. Admits to shortness of breath, palpitation. She has chronic abdominal pain does not change Review Of Systems: Constitutional: no weight loss Ears, eyes, nose, mouth and throat: no nasal congestion, no nasal discharge, no sinus pressure, blurry vision, diplopia Neck: No neck pain or rigidity. Cardiovascular: no orthopnea, palpitations Respiratory: No shortness of breath, cough Gastrointestinal: no hematochezia Genitourinary : no dysuria, frequency , hematuria Musculoskeletal: no muscle ache Integumentary: no rash, no pruritis Neurological: no parathesias, focal weakness Endocrine: no cold or heat intolerance, no polyuria or polydipsia Hematologic/Lymphatic: no easy bruising, no easy bleeding, no gland swelling Allergic/Immunologic: no urticaria, no angioedema. PAST MEDICAL HISTORY:hypertension, diabetes PAST SURGICAL HISTORY: 2, bowel repair FAMILY HISTORY:hypertension, diabetes SOCIAL HISTORY:SMOKE 1/3 pack a day, no alcohol or drugs Medications and Allergies Allergies Allergy/AdvReac Type Severity Reaction Status Date / Time lactose Allergy Unknown Unknown Verified 07/29/15 17:59 penicillin G Allergy Dizziness Verified 09/27/15 15:55 clarithromycin [From Biaxin] AdvReac Shortness Verified 07/29/15 17:59 of Breath Home Medications Medication Instructions Recorded Confirmed Last Taken Type RX: Furosemide [Lasix TAB] 40 mg PO QDAY #30 tablet 11/03/16 03/14/17 Unknown Rx RX: Gabapentin [Neurontin] 300 mg PO Q8HR #90 capsule 11/03/16 03/14/17 Unknown Rx RX: Insulin Glulisine [Apidra] 20 units SUB-Q AC 30 Days units 11/03/16 Unknown Rx RX: Losartan [Cozaar] 50 mg PO QDAY #30 tablet 11/03/16 03/14/17 Unknown Rx RX: Miconazole [Monistat Vag 100 mg VG QHS #7 supp.vag 11/03/16 03/14/17 Unknown Rx Suppos] Geoffrey Solisostar 50 units SUB-Q HS #1500 units 03/14/17 Unknown Rx Active Meds: Active Medications Dextrose (D50w (25gm) Syringe) 0 ml IV ONCE PRN PRN Reason: Hypoglycemia Insulin Human Regular 100 (units/ Sodium Chloride) 100 mls @ 10 mls/hr IV TITR COURTNEY; 10 UNITS/HR PRN Reason: Protocol Last Admin: 09/07/17 22:52 Dose: 8 units/hr, 8 mls/hr Exam - Physical Exam Narrative exam: Gen. appearance: Patient lying in bed in no acute distress HEENT: Normocephalic/atraumatic, pupils equal round reactive to light, extra alkaline movement intact, no scleral icterus, no JVD or thyromegaly or nodule, neck is supple, mucous membrane moist, no erythema or exudate Heart: S1-S2, regular rate and rhythm Lungs: Clear to auscultation bilateral breathing comfortable Abdomen: Positive bowel sounds, tender in mid abdomen, nondistended, no organomegaly Extremities: No edema, cyanosis, clubbing Neuro:: Oriented 3 , cranial nerves II-12 intact, speech, motor intact Skin: No rash, nodules, warm dry - Constitutional Vitals: Temp Pulse Resp BP Pulse Ox 98.9 F 112 H 20 132/89 100 09/07/17 20:53 09/07/17 21:53 09/07/17 21:58 09/07/17 21:53 09/07/17 21:58 Results - Labs CBC & Chem 7: 09/07/17 18:44 09/07/17 21:54 Labs: Abnormal lab results 09/07/17 09/07/17 09/07/17 Range/Units 18:10 18:14 18:44 WBC 11.2 H (4.5-11.0) K/mm3 RDW 15.6 H (13.2-15.2) % [place] % (Auto) 8.1 H (0.0-7.3) % [place] # 0.9 H (0.0-0.8) K/mm3 Seg Neutrophils % 72.5 H (40.0-70.0) % Seg Neutrophils # 8.1 H (1.8-7.7) K/mm3 VBG pH (7.320-7.420) Sodium (137-145) mmol/L Chloride (98-107) mmol/L Carbon Dioxide (22-30) mmol/L Glucose (65-100) mg/dL POC Glucose > 500 H (70-105) Ur Specific [place] 1.031 H (1.003-1.030) Urine WBC (Auto) 19.0 H (0.0-6.0) /HPF 09/07/17 09/07/17 09/07/17 Range/Units 18:44 18:44 21:54 WBC (4.5-11.0) K/mm3 RDW (13.2-15.2) % [place] % (Auto) (0.0-7.3) % [place] # (0.0-0.8) K/mm3 Seg Neutrophils % (40.0-70.0) % Seg Neutrophils # (1.8-7.7) K/mm3 VBG pH 7.310 L (7.320-7.420) Sodium 130 L 131 L (137-145) mmol/L Chloride 89.6 L 92.8 L (98-107) mmol/L Carbon Dioxide 20 L 19 L (22-30) mmol/L Glucose 649 H* 527 H* (65-100) mg/dL POC Glucose (70-105) Ur Specific [place] (1.003-1.030) Urine WBC (Auto) (0.0-6.0) /HPF 09/07/17 Range/Units 22:29 WBC (4.5-11.0) K/mm3 RDW (13.2-15.2) % [place] % (Auto) (0.0-7.3) % [place] # (0.0-0.8) K/mm3 Seg Neutrophils % (40.0-70.0) % Seg Neutrophils # (1.8-7.7) K/mm3 VBG pH (7.320-7.420) Sodium (137-145) mmol/L Chloride (98-107) mmol/L Carbon Dioxide (22-30) mmol/L Glucose (65-100) mg/dL POC Glucose 463 H (70-105) Ur Specific [place] (1.003-1.030) Urine WBC (Auto) (0.0-6.0) /HPF Assessment and Plan Assessment DKA Chest pain, rule out ACS UTI Hypertension Plan Admit to medicine Start IV fluids, insulin drip Check fingersticks, serial chemistry Check cardiac enzymes, stress test when off insulin drip Consult critical care DVT prophylaxis, iv morphine, iv levaquin
[2017-09-07] MEDS ORDERED: D5/0.45NS 1,000 ML IV SCH (23:45)
[2017-09-07] MEDS ORDERED: NACL 0.9% 1000 ML 1,000 ML IV SCH (23:45)
[2017-09-08 00:03] LABS: Anion Gap 30 mmol/L; BUN/Creatinine Ratio 13; Blood Urea Nitrogen 9 mg/dL (7-17); Calcium 9.2 mg/dL (8.4-10.2); Carbon Dioxide 16 mmol/L (22-30); Glucose 498 mg/dL (65-100); Potassium 4.1 mmol/L (3.6-5.0); Sodium 125 mmol/L (137-145)
[2017-09-08 00:08] LABS: Creatine Kinase 77 units/L (30-135)
[2017-09-08 00:10] LABS: Creatine Kinase MB < 1.0 ng/mL (0.0-4.0)
[2017-09-08] MEDS: LEVAQUIN 750MG/150ML 750 MG/150 ML BAG IV SCH (00:39)
[2017-09-08] MEDS: MORPHINE IV PRN ×5 (01:17→17:02)
[2017-09-08 03:02] LABS: Anion Gap 22 mmol/L; BUN/Creatinine Ratio 13; Blood Urea Nitrogen 9 mg/dL (7-17); Carbon Dioxide 19 mmol/L (22-30); Chloride 100.7 mmol/L (98-107); Glucose 213 mg/dL (65-100); Potassium 3.7 mmol/L (3.6-5.0); Sodium 138 mmol/L (137-145)
[2017-09-08] MEDS ORDERED: D5W/0.45% NACL/KCL 30 MEQ 30 MEQ/1,000 ML BAG IV SCH (04:00)
[2017-09-08] MEDS ORDERED: D5W/0.45% NACL/KCL 20 MEQ 20 MEQ/1,000 ML BAG IV SCH ×2 (04:00→11:00)
[2017-09-08 05:30] LABS: Creatine Kinase MB 1.2 ng/mL (0.0-4.0)
[2017-09-08 05:31] LABS: Creatine Kinase 95 units/L (30-135)
[2017-09-08 05:35] LABS: Anion Gap 21 mmol/L; BUN/Creatinine Ratio 15; Blood Urea Nitrogen 9 mg/dL (7-17); Calcium 8.8 mg/dL (8.4-10.2); Carbon Dioxide 17 mmol/L (22-30); Chloride 100.2 mmol/L (98-107); Glucose 254 mg/dL (65-100); Potassium 4.4 mmol/L (3.6-5.0); Sodium 134 mmol/L (137-145)
--- NOTE | 2017-09-08 09:04 | Progress Note ---
Assessment and Plan - DKA: On IVF, insulin drip per protocol. Blood sugar improving - Chest pain: serial Stephen are normal. Contiue with O2, NTG, ASA - UTI: Follow urine cultrue - Hypertension: Controlled with oral antihypertensive - DVT prophylaxis with Lovenox Critical care time spent was 32 mins Subjective Date of service: 09/08/17 Principal diagnosis: DKA, DM, metabolic acidosis Interval history: No new complaint. Discussed with pt's Nurse. No overnight event reported to me Objective - Constitutional Vitals: Vital Signs - 12hr 09/07/17 09/07/17 09/07/17 21:53 21:58 23:48 Temperature Pulse Rate 112 H 94 H Respiratory 20 18 Rate Blood Pressure 132/89 Blood Pressure 106/40 [Left] O2 Sat by Pulse 100 98 Oximetry 09/08/17 09/08/17 09/08/17 00:02 01:26 04:56 Temperature 98.8 F 98 F 98 F Pulse Rate 117 H 128 H 111 H Respiratory 18 18 18 Rate Blood Pressure Blood Pressure 110/60 123/72 115/62 [Left] O2 Sat by Pulse 96 98 96 Oximetry 09/08/17 04:58 Temperature Pulse Rate Respiratory 20 Rate Blood Pressure Blood Pressure [Left] O2 Sat by Pulse Oximetry General appearance: Present: no acute distress, well-nourished - EENT Eyes: PERRL, EOM intact - Neck Neck: supple, normal ROM - Respiratory Respiratory effort: normal Respiratory: bilateral: CTA - Cardiovascular Rhythm: regular Heart Sounds: Present: S1 & S2. Absent: gallop, rub Extremities: pulses intact, No edema, normal color, Full ROM - Gastrointestinal General gastrointestinal: Present: soft, non-tender, non-distended, normal bowel sounds - Integumentary Integumentary: clear, warm, dry - Musculoskeletal Musculoskeletal: 1, strength equal bilaterally - Neurologic Neurologic: moves all extremities - Psychiatric Psychiatric: memory intact, appropriate mood/affect, intact judgment & insight - Labs CBC & Chem 7: 09/07/17 18:44 09/08/17 17:07 Labs: Abnormal lab results 09/07/17 09/07/17 09/07/17 Range/Units 18:10 18:14 18:44 WBC 11.2 H (4.5-11.0) K/mm3 RDW 15.6 H (13.2-15.2) % [place] % (Auto) 8.1 H (0.0-7.3) % [place] # 0.9 H (0.0-0.8) K/mm3 Seg Neutrophils % 72.5 H (40.0-70.0) % Seg Neutrophils # 8.1 H (1.8-7.7) K/mm3 VBG pH (7.320-7.420) Sodium (137-145) mmol/L Chloride (98-107) mmol/L Carbon Dioxide (22-30) mmol/L Creatinine (0.7-1.2) mg/dL Glucose (65-100) mg/dL POC Glucose > 500 H (70-105) Hemoglobin A1c (4-6) % Ur Specific [place] 1.031 H (1.003-1.030) Urine WBC (Auto) 19.0 H (0.0-6.0) /HPF 09/07/17 09/07/17 09/07/17 Range/Units 18:44 18:44 18:44 WBC (4.5-11.0) K/mm3 RDW (13.2-15.2) % [place] % (Auto) (0.0-7.3) % [place] # (0.0-0.8) K/mm3 Seg Neutrophils % (40.0-70.0) % Seg Neutrophils # (1.8-7.7) K/mm3 VBG pH 7.310 L (7.320-7.420) Sodium 130 L (137-145) mmol/L Chloride 89.6 L (98-107) mmol/L Carbon Dioxide 20 L (22-30) mmol/L Creatinine (0.7-1.2) mg/dL Glucose 649 H* (65-100) mg/dL POC Glucose (70-105) Hemoglobin A1c 11.3 H (4-6) % Ur Specific [place] (1.003-1.030) Urine WBC (Auto) (0.0-6.0) /HPF 09/07/17 09/07/17 09/07/17 Range/Units 21:54 22:29 23:33 WBC (4.5-11.0) K/mm3 RDW (13.2-15.2) % [place] % (Auto) (0.0-7.3) % [place] # (0.0-0.8) K/mm3 Seg Neutrophils % (40.0-70.0) % Seg Neutrophils # (1.8-7.7) K/mm3 VBG pH (7.320-7.420) Sodium 131 L 125 L (137-145) mmol/L Chloride 92.8 L 83.0 L (98-107) mmol/L Carbon Dioxide 19 L 16 L (22-30) mmol/L Creatinine (0.7-1.2) mg/dL Glucose 527 H* 498 H (65-100) mg/dL POC Glucose 463 H (70-105) Hemoglobin A1c (4-6) % Ur Specific [place] (1.003-1.030) Urine WBC (Auto) (0.0-6.0) /HPF 09/08/17 09/08/17 09/08/17 Range/Units 00:03 01:24 02:24 WBC (4.5-11.0) K/mm3 RDW (13.2-15.2) % [place] % (Auto) (0.0-7.3) % [place] # (0.0-0.8) K/mm3 Seg Neutrophils % (40.0-70.0) % Seg Neutrophils # (1.8-7.7) K/mm3 VBG pH (7.320-7.420) Sodium (137-145) mmol/L Chloride (98-107) mmol/L Carbon Dioxide (22-30) mmol/L Creatinine (0.7-1.2) mg/dL Glucose (65-100) mg/dL POC Glucose 448 H 274 H 215 H (70-105) Hemoglobin A1c (4-6) % Ur Specific [place] (1.003-1.030) Urine WBC (Auto) (0.0-6.0) /HPF 09/08/17 09/08/17 09/08/17 Range/Units 02:31 03:27 04:44 WBC (4.5-11.0) K/mm3 RDW (13.2-15.2) % [place] % (Auto) (0.0-7.3) % [place] # (0.0-0.8) K/mm3 Seg Neutrophils % (40.0-70.0) % Seg Neutrophils # (1.8-7.7) K/mm3 VBG pH (7.320-7.420) Sodium (137-145) mmol/L Chloride (98-107) mmol/L Carbon Dioxide 19 L (22-30) mmol/L Creatinine (0.7-1.2) mg/dL Glucose 213 H (65-100) mg/dL POC Glucose 206 H 266 H (70-105) Hemoglobin A1c (4-6) % Ur Specific [place] (1.003-1.030) Urine WBC (Auto) (0.0-6.0) /HPF 09/08/17 09/08/17 09/08/17 Range/Units 05:03 05:37 07:21 WBC (4.5-11.0) K/mm3 RDW (13.2-15.2) % [place] % (Auto) (0.0-7.3) % [place] # (0.0-0.8) K/mm3 Seg Neutrophils % (40.0-70.0) % Seg Neutrophils # (1.8-7.7) K/mm3 VBG pH (7.320-7.420) Sodium 134 L (137-145) mmol/L Chloride (98-107) mmol/L Carbon Dioxide 17 L (22-30) mmol/L Creatinine 0.6 L (0.7-1.2) mg/dL Glucose 254 H (65-100) mg/dL POC Glucose 233 H 231 H (70-105) Hemoglobin A1c (4-6) % Ur Specific [place] (1.003-1.030) Urine WBC (Auto) (0.0-6.0) /HPF 09/08/17 Range/Units 08:33 WBC (4.5-11.0) K/mm3 RDW (13.2-15.2) % [place] % (Auto) (0.0-7.3) % [place] # (0.0-0.8) K/mm3 Seg Neutrophils % (40.0-70.0) % Seg Neutrophils # (1.8-7.7) K/mm3 VBG pH (7.320-7.420) Sodium (137-145) mmol/L Chloride (98-107) mmol/L Carbon Dioxide (22-30) mmol/L Creatinine (0.7-1.2) mg/dL Glucose (65-100) mg/dL POC Glucose 221 H (70-105) Hemoglobin A1c (4-6) % Ur Specific [place] (1.003-1.030) Urine WBC (Auto) (0.0-6.0) /HPF
[2017-09-08] MEDS ORDERED: LOVENOX SUB-Q SCH (10:00)
[2017-09-08] MEDS ORDERED: NACL ONE (10:31)
[2017-09-08] MEDS ORDERED: PEPCID IV SCH (11:00)
--- NOTE | 2017-09-08 11:32 | Cat Scan Report ---
CT ABDOMEN AND PELVIS WITH CONTRAST: 09/07/17 23:19:00 CLINICAL: Abdominal pain. COMPARISON: 06/08/15 TECHNIQUE: Volumetric acquisition and 1.25 millimeter scan reconstructions after the uneventful intravenous injection of 100 cc Omnipaque 300. Consent was obtained prior to the administration of contrast. Oral contrast was not given. FINDINGS: Abdomen: Clear lung bases.Normal liver, bile ducts and gallbladder. Normal stomach, duodenum, pancreas and spleen. Normal adrenal glands and kidneys. The renal collecting systems and ureters are nondilated. No urinary calculus, mass or cyst. Normal aorta and inferior vena cava. The small bowel is normal.Normal ascending, transverse and descending colon. The appendix is normal. No mass, lymphadenopathy or ascites.No pneumoperitoneum. A small fat containing hernia. Pelvis: Normal uterus and left ovary. A 1 cm dominant follicle the left ovary. A right ovary is not confidently identified.Normal urinary bladder. Normal rectum and sigmoid colon.No pelvic mass, fluid or lymphadenopathy. Bone windows demonstrate no bone lesion. IMPRESSION:A small fat containing umbilical hernia and otherwise normal abdomen and pelvis.
[2017-09-08] MEDS: PEPCID IV SCH (12:00)
[2017-09-08] MEDS: D5W/0.45% NACL/KCL 30 MEQ 30 MEQ/1,000 ML BAG IV SCH ×2 (12:30→21:31)
[2017-09-08] MEDS: LOVENOX SUB-Q SCH (12:51)
[2017-09-08 17:35] LABS: Anion Gap 18 mmol/L; BUN/Creatinine Ratio 13; Blood Urea Nitrogen 9 mg/dL (7-17); Carbon Dioxide 22 mmol/L (22-30); Chloride 101.9 mmol/L (98-107); Glucose 185 mg/dL (65-100); Potassium 4.4 mmol/L (3.6-5.0); Sodium 137 mmol/L (137-145)
[2017-09-08 21:46] LABS: BUN/Creatinine Ratio 16; Blood Urea Nitrogen 11 mg/dL (7-17); Calcium 8.9 mg/dL (8.4-10.2); Carbon Dioxide 20 mmol/L (22-30); Chloride 101.9 mmol/L (98-107); Glucose 157 mg/dL (65-100); Sodium 136 mmol/L (137-145)
[2017-09-08 21:58] LABS: Anion Gap 19 mmol/L; Potassium 5.3 mmol/L (3.6-5.0)
[2017-09-08] MEDS: NovoLIN R 100 UNITS in NACL 0.9% 99 ML IV SCH (23:46)
[2017-09-09] MEDS: LEVAQUIN 750MG/150ML 750 MG/150 ML BAG IV SCH ×2 (00:23→23:41)
[2017-09-09] MEDS: MORPHINE IV PRN ×3 (04:10→23:42)
--- NOTE | 2017-09-09 07:49 | Progress Note ---
Assessment and Plan Assessment and plan: --Diabetic ketoacidosis; on insulin drip Anion gap closed, no acidosis, no nausea or vomiting, start ADA diet, DC insulin drip, initiate long-acting insulin 7030 Accu-Chek sliding scale ADA diet, Change IV fluids to normal saline, closely monitor electrolytes and correct as needed --Type 1 diabetes mellitus; noncompliant with medications, diabetic education, nutrition consult Home health nurse for disease monitoring at the time of discharge --Hypertension; resume home antihypertensives and when necessary medications --Peripheral neuropathy; continue Neurontin --Morbid obesity; counseling done, advised diet modification and exercise as tolerated and weight reduction and medically stable --DVT prophylaxis; Lovenox [place] admission to medical floor Plan of care discussed with the patient and her nurse History Interval history: Patient seen and examined this morning, medical records reviewed Admitted with DKA on insulin drip, blood sugars are reasonable level, anion gap closed Patient's denies nausea vomiting or abdominal pain Vital signs reviewed Hospitalist Physical - Constitutional Vitals: Temp Pulse Resp BP Pulse Ox 98 F 111 H 18 128/81 93 09/08/17 04:56 09/08/17 18:59 09/08/17 18:59 09/09/17 05:30 09/09/17 05:30 General appearance: Present: no acute distress, well-nourished - EENT Eyes: Present: PERRL, EOM intact - Neck Neck: Present: supple, normal ROM - Respiratory Respiratory effort: normal Respiratory: bilateral: diminished, negative: rales, rhonchi, wheezing - Cardiovascular Rhythm: regular Heart Sounds: Present: S1 & S2 - Extremities Extremities: no ischemia, No edema Peripheral Pulses: within normal limits - Abdominal General gastrointestinal: soft, non-tender, non-distended, normal bowel sounds - Integumentary Integumentary: Present: clear, warm - Psychiatric Psychiatric: appropriate mood/affect, cooperative - Neurologic Neurologic: CNII-XII intact, moves all extremities Results - Labs CBC & Chem 7: 09/07/17 18:44 09/08/17 21:13 Labs: Laboratory Last Values WBC 11.2 K/mm3 (4.5-11.0) H 09/07/17 18:44 RBC 4.73 M/mm3 (3.65-5.03) 09/07/17 18:44 Hgb 13.3 gm/dl (10.1-14.3) 09/07/17 18:44 Hct 42.4 % (30.3-42.9) 09/07/17 18:44 MCV 90 fl (79-97) 09/07/17 18:44 MCH 28 pg (28-32) 09/07/17 18:44 MCHC 31 % (30-34) 09/07/17 18:44 RDW 15.6 % (13.2-15.2) H 09/07/17 18:44 Plt Count 314 K/mm3 (140-440) 09/07/17 18:44 Lymph % (Auto) 18.2 % (13.4-35.0) 09/07/17 18:44 [place] % (Auto) 8.1 % (0.0-7.3) H 09/07/17 18:44 Eos % (Auto) 0.8 % (0.0-4.3) 09/07/17 18:44 Baso % (Auto) 0.4 % (0.0-1.8) 09/07/17 18:44 Lymph # 2.0 K/mm3 (1.2-5.4) 09/07/17 18:44 [place] # 0.9 K/mm3 (0.0-0.8) H 09/07/17 18:44 Eos # 0.1 K/mm3 (0.0-0.4) 09/07/17 18:44 Baso # 0.0 K/mm3 (0.0-0.1) 09/07/17 18:44 Seg Neutrophils % 72.5 % (40.0-70.0) H 09/07/17 18:44 Seg Neutrophils # 8.1 K/mm3 (1.8-7.7) H 09/07/17 18:44 VBG pH 7.310 (7.320-7.420) L 09/07/17 18:44 Sodium 136 mmol/L (137-145) L 09/08/17 21:13 Potassium 5.3 mmol/L (3.6-5.0) H D 09/08/17 21:13 Chloride 101.9 mmol/L (98-107) 09/08/17 21:13 Carbon Dioxide 20 mmol/L (22-30) L 09/08/17 21:13 Anion Gap 19 mmol/L 09/08/17 21:13 BUN 11 mg/dL (7-17) 09/08/17 21:13 Creatinine 0.7 mg/dL (0.7-1.2) 09/08/17 21:13 Estimated GFR > 60 ml/min 09/08/17 21:13 BUN/Creatinine Ratio 16 % 09/08/17 21:13 Glucose 157 mg/dL (65-100) H 09/08/17 21:13 POC Glucose 157 (70-105) H 09/09/17 07:31 Hemoglobin A1c 11.3 % (4-6) H 09/07/17 18:44 Calcium 8.9 mg/dL (8.4-10.2) 09/08/17 21:13 Phosphorus 4.00 mg/dL (2.5-4.5) 09/07/17 21:32 Magnesium 2.10 mg/dL (1.7-2.3) 09/07/17 21:32 Total Creatine Kinase 95 units/L (30-135) 09/08/17 05:03 CK-MB (CK-2) 1.2 ng/mL (0.0-4.0) 09/08/17 05:03 CK-MB (CK-2) Rel Index 1.2 (0-4) 09/08/17 05:03 Troponin T < 0.010 ng/mL (0.00-0.029) 09/08/17 05:03 Urine Color Yellow (Yellow) 09/07/17 18:14 Urine Turbidity Clear (Clear) 09/07/17 18:14 Urine pH 5.0 (5.0-7.0) 09/07/17 18:14 Ur Specific [place] 1.031 (1.003-1.030) H 09/07/17 18:14 Urine Protein <15 mg/dl mg/dL (Negative) 09/07/17 18:14 Urine Glucose (UA) >=500 mg/dL (Negative) 09/07/17 18:14 Urine Ketones 80 mg/dL (Negative) 09/07/17 18:14 Urine Blood Sm (Negative) 09/07/17 18:14 Urine Nitrite Neg (Negative) 09/07/17 18:14 Urine Bilirubin Neg (Negative) 09/07/17 18:14 Urine Urobilinogen < 2.0 mg/dL (<2.0) 09/07/17 18:14 Ur Leukocyte Esterase Lg (Negative) 09/07/17 18:14 Urine WBC (Auto) 19.0 /HPF (0.0-6.0) H 09/07/17 18:14 Urine RBC (Auto) 47.0 /HPF (0.0-6.0) 09/07/17 18:14 U Epithel Cells (Auto) 1.0 /HPF (0-13.0) 09/07/17 18:14 Urine Bacteria (Auto) 1+ /HPF (Negative) 09/07/17 18:14 Urine Mucus Few /HPF 09/07/17 18:14 Urine Yeast (Budding) 2+ /HPF 09/07/17 18:14
[2017-09-09] MEDS: NACL 0.9% 1000 ML 1,000 ML IV SCH ×2 (09:00→17:40)
[2017-09-09 09:56] LABS: Phosphorous 3.1 mg/dL (2.5-4.5)
[2017-09-09] MEDS: LOVENOX SUB-Q SCH (10:42)
[2017-09-09] MEDS: PEPCID IV SCH (10:42)
[2017-09-09] MEDS: COZAAR PO SCH (10:43)
[2017-09-09] MEDS ORDERED: INSULIN GLULISINE 20 UNIT SUB-Q SCH (11:30)
[2017-09-09] MEDS ORDERED: NOVOLOG SUB-Q SCH (11:30)
[2017-09-09] MEDS: NOVOLOG SUB-Q SCH ×3 (11:58→22:51)
[2017-09-09] MEDS: LASIX PO SCH (12:00)
[2017-09-09] MEDS: NEURONTIN PO SCH ×2 (14:06→21:13)
[2017-09-10] MEDS: NEURONTIN PO SCH ×4 (05:46→22:23)
[2017-09-10] MEDS: MORPHINE IV PRN ×3 (05:53→23:48)
[2017-09-10] MEDS: NACL 0.9% 1000 ML 1,000 ML IV SCH ×2 (05:56→15:54)
[2017-09-10 06:02] LABS: Anion Gap 17 mmol/L; BUN/Creatinine Ratio 14; Blood Urea Nitrogen 7 mg/dL (7-17); Calcium 8.3 mg/dL (8.4-10.2); Carbon Dioxide 21 mmol/L (22-30); Chloride 100.8 mmol/L (98-107); Glucose 406 mg/dL (65-100); Potassium 4.8 mmol/L (3.6-5.0); Sodium 134 mmol/L (137-145)
[2017-09-10] MEDS: NOVOLOG SUB-Q SCH ×4 (08:42→22:24)
[2017-09-10] MEDS: PEPCID IV SCH (08:43)
[2017-09-10] MEDS: COZAAR PO SCH ×2 (08:43→10:17)
[2017-09-10] MEDS: LASIX PO SCH ×2 (08:43→10:19)
[2017-09-10] MEDS: LOVENOX SUB-Q SCH ×2 (08:44→10:19)
--- NOTE | 2017-09-10 15:26 | Progress Note ---
Assessment and Plan Assessment and plan: --Diabetic ketoacidosis; resolved Continue current management --Type 1 diabetes mellitus; uncontrolled , Accu-Chek sliding scale coverage and ADA diet , increase 7030 insulin dose Hemoglobin A1c 11.3 , counseling done patient advised to comply with medications tightened follow-up visits , possible home health nurse for disease management upon discharge if needed --Hypertension; resume home antihypertensives and when necessary medications --Allergic rash in the thigh; supportive care with hydrocortisone cream and Benadryl as needed --Peripheral neuropathy; continue Neurontin --Morbid obesity; counseling done, advised diet modification and exercise as tolerated and weight reduction Patient may benefit by outpatient bariatric surgical evaluation for weight reduction program been medically stable -- discharge planning with case management for possible home health to [place] . History Interval history: Patient seen and examined medical records reviewed No overnight events reported by nursing staff Patient complaints of mild rash and itching on the right thigh, Patient is alert awake oriented 3 not in acute distress Vital signs reviewed Blood sugars remain elevated in higher 200s and 300s, lobe latency 11.3 Hospitalist Physical - Constitutional Vitals: Temp Pulse Resp BP Pulse Ox 98.6 F 96 H 18 124/77 94 09/10/17 08:14 09/10/17 08:14 09/10/17 08:14 09/10/17 08:14 09/10/17 08:14 General appearance: Present: no acute distress, well-nourished, obese (morbidly Obese) - EENT Eyes: Present: PERRL, EOM intact - Neck Neck: Present: supple, normal ROM - Respiratory Respiratory effort: normal Respiratory: bilateral: diminished, negative: rales, rhonchi, wheezing - Cardiovascular Rhythm: regular Heart Sounds: Present: S1 & S2 - Extremities Extremities: no ischemia, No edema - Abdominal General gastrointestinal: soft, non-tender, non-distended, normal bowel sounds - Integumentary Integumentary: Present: clear, warm - Psychiatric Psychiatric: appropriate mood/affect, cooperative - Neurologic Neurologic: CNII-XII intact, moves all extremities Results - Labs CBC & Chem 7: 09/07/17 18:44 09/10/17 05:09 Labs: Laboratory Last Values WBC 11.2 K/mm3 (4.5-11.0) H 09/07/17 18:44 RBC 4.73 M/mm3 (3.65-5.03) 09/07/17 18:44 Hgb 13.3 gm/dl (10.1-14.3) 09/07/17 18:44 Hct 42.4 % (30.3-42.9) 09/07/17 18:44 MCV 90 fl (79-97) 09/07/17 18:44 MCH 28 pg (28-32) 09/07/17 18:44 MCHC 31 % (30-34) 09/07/17 18:44 RDW 15.6 % (13.2-15.2) H 09/07/17 18:44 Plt Count 314 K/mm3 (140-440) 09/07/17 18:44 Lymph % (Auto) 18.2 % (13.4-35.0) 09/07/17 18:44 [place] % (Auto) 8.1 % (0.0-7.3) H 09/07/17 18:44 Eos % (Auto) 0.8 % (0.0-4.3) 09/07/17 18:44 Baso % (Auto) 0.4 % (0.0-1.8) 09/07/17 18:44 Lymph # 2.0 K/mm3 (1.2-5.4) 09/07/17 18:44 [place] # 0.9 K/mm3 (0.0-0.8) H 09/07/17 18:44 Eos # 0.1 K/mm3 (0.0-0.4) 09/07/17 18:44 Baso # 0.0 K/mm3 (0.0-0.1) 09/07/17 18:44 Seg Neutrophils % 72.5 % (40.0-70.0) H 09/07/17 18:44 Seg Neutrophils # 8.1 K/mm3 (1.8-7.7) H 09/07/17 18:44 VBG pH 7.310 (7.320-7.420) L 09/07/17 18:44 Sodium 134 mmol/L (137-145) L 09/10/17 05:09 Potassium 4.8 mmol/L (3.6-5.0) 09/10/17 05:09 Chloride 100.8 mmol/L (98-107) 09/10/17 05:09 Carbon Dioxide 21 mmol/L (22-30) L 09/10/17 05:09 Anion Gap 17 mmol/L 09/10/17 05:09 BUN 7 mg/dL (7-17) 09/10/17 05:09 Creatinine 0.5 mg/dL (0.7-1.2) L 09/10/17 05:09 Estimated GFR > 60 ml/min 09/10/17 05:09 BUN/Creatinine Ratio 14 % 09/10/17 05:09 Glucose 406 mg/dL (65-100) H 09/10/17 05:09 POC Glucose 318 (70-105) H 09/10/17 11:36 Hemoglobin A1c 11.3 % (4-6) H 09/07/17 18:44 Calcium 8.3 mg/dL (8.4-10.2) L 09/10/17 05:09 Phosphorus 3.10 mg/dL (2.5-4.5) 09/10/17 05:09 Magnesium 1.80 mg/dL (1.7-2.3) 09/10/17 05:09 Total Creatine Kinase 95 units/L (30-135) 09/08/17 05:03 CK-MB (CK-2) 1.2 ng/mL (0.0-4.0) 09/08/17 05:03 CK-MB (CK-2) Rel Index 1.2 (0-4) 09/08/17 05:03 Troponin T < 0.010 ng/mL (0.00-0.029) 09/08/17 05:03 Urine Color Yellow (Yellow) 09/07/17 18:14 Urine Turbidity Clear (Clear) 09/07/17 18:14 Urine pH 5.0 (5.0-7.0) 09/07/17 18:14 Ur Specific [place] 1.031 (1.003-1.030) H 09/07/17 18:14 Urine Protein <15 mg/dl mg/dL (Negative) 09/07/17 18:14 Urine Glucose (UA) >=500 mg/dL (Negative) 09/07/17 18:14 Urine Ketones 80 mg/dL (Negative) 09/07/17 18:14 Urine Blood Sm (Negative) 09/07/17 18:14 Urine Nitrite Neg (Negative) 09/07/17 18:14 Urine Bilirubin Neg (Negative) 09/07/17 18:14 Urine Urobilinogen < 2.0 mg/dL (<2.0) 09/07/17 18:14 Ur Leukocyte Esterase Lg (Negative) 09/07/17 18:14 Urine WBC (Auto) 19.0 /HPF (0.0-6.0) H 09/07/17 18:14 Urine RBC (Auto) 47.0 /HPF (0.0-6.0) 09/07/17 18:14 U Epithel Cells (Auto) 1.0 /HPF (0-13.0) 09/07/17 18:14 Urine Bacteria (Auto) 1+ /HPF (Negative) 09/07/17 18:14 Urine Mucus Few /HPF 09/07/17 18:14 Urine Yeast (Budding) 2+ /HPF 09/07/17 18:14
[2017-09-10] MEDS: LEVAQUIN PO SCH (22:23)
[2017-09-10] MEDS: HYDROCORTISONE CR TP SCH (22:27)
[2017-09-11] MEDS: NACL 0.9% 1000 ML 1,000 ML IV SCH ×2 (03:18→22:32)
[2017-09-11] MEDS: NEURONTIN PO SCH ×3 (05:30→22:30)
[2017-09-11] MEDS: HYDROCORTISONE CR TP SCH ×3 (05:31→22:31)
[2017-09-11] MEDS: NOVOLOG SUB-Q SCH ×4 (08:13→22:29)
[2017-09-11] MEDS: COZAAR PO SCH (09:44)
[2017-09-11] MEDS: LOVENOX SUB-Q SCH (09:44)
[2017-09-11] MEDS: LASIX PO SCH (09:44)
[2017-09-11] MEDS: PEPCID PO SCH (09:45)
[2017-09-11] MEDS: MORPHINE IV PRN (09:51)
--- NOTE | 2017-09-11 13:41 | Progress Note ---
Assessment and Plan Assessment and plan: --Diabetic ketoacidosis; resolved Continue current management --Type 1 diabetes mellitus; uncontrolled , Accu-Chek sliding scale coverage and ADA diet , increase 7030 insulin dose Hemoglobin A1c 11.3 , counseling done patient advised to comply with medications tightened follow-up visits , possible home health nurse for disease management upon discharge if needed --Hypertension; resume home antihypertensives and when necessary medications --Allergic rash in the thigh; supportive care with hydrocortisone cream and Benadryl as needed --Peripheral neuropathy; continue Neurontin --Morbid obesity; counseling done, advised diet modification and exercise as tolerated and weight reduction Patient may benefit by outpatient bariatric surgical evaluation for weight reduction program been medically stable History Interval history: Patient seen and examined Labs reviewed Hospitalist Physical - Constitutional Vitals: Temp Pulse Resp BP Pulse Ox 98.6 F 89 18 97/50 95 09/11/17 07:22 09/11/17 07:22 09/11/17 07:22 09/11/17 09:44 09/11/17 07:22 General appearance: Present: no acute distress, well-nourished, obese (morbidly Obese) - EENT Eyes: Present: PERRL, EOM intact - Neck Neck: Present: supple, normal ROM - Respiratory Respiratory effort: normal Respiratory: bilateral: diminished, negative: rales, rhonchi, wheezing - Cardiovascular Rhythm: regular Heart Sounds: Present: S1 & S2 - Extremities Extremities: no ischemia, No edema - Abdominal General gastrointestinal: soft, non-tender, non-distended, normal bowel sounds - Integumentary Integumentary: Present: clear, warm - Psychiatric Psychiatric: appropriate mood/affect, cooperative - Neurologic Neurologic: CNII-XII intact, moves all extremities Results - Labs CBC & Chem 7: 09/07/17 18:44 09/10/17 05:09 Labs: Laboratory Last Values WBC 11.2 K/mm3 (4.5-11.0) H 09/07/17 18:44 RBC 4.73 M/mm3 (3.65-5.03) 09/07/17 18:44 Hgb 13.3 gm/dl (10.1-14.3) 09/07/17 18:44 Hct 42.4 % (30.3-42.9) 09/07/17 18:44 MCV 90 fl (79-97) 09/07/17 18:44 MCH 28 pg (28-32) 09/07/17 18:44 MCHC 31 % (30-34) 09/07/17 18:44 RDW 15.6 % (13.2-15.2) H 09/07/17 18:44 Plt Count 314 K/mm3 (140-440) 09/07/17 18:44 Lymph % (Auto) 18.2 % (13.4-35.0) 09/07/17 18:44 [place] % (Auto) 8.1 % (0.0-7.3) H 09/07/17 18:44 Eos % (Auto) 0.8 % (0.0-4.3) 09/07/17 18:44 Baso % (Auto) 0.4 % (0.0-1.8) 09/07/17 18:44 Lymph # 2.0 K/mm3 (1.2-5.4) 09/07/17 18:44 [place] # 0.9 K/mm3 (0.0-0.8) H 09/07/17 18:44 Eos # 0.1 K/mm3 (0.0-0.4) 09/07/17 18:44 Baso # 0.0 K/mm3 (0.0-0.1) 09/07/17 18:44 Seg Neutrophils % 72.5 % (40.0-70.0) H 09/07/17 18:44 Seg Neutrophils # 8.1 K/mm3 (1.8-7.7) H 09/07/17 18:44 VBG pH 7.310 (7.320-7.420) L 09/07/17 18:44 Sodium 134 mmol/L (137-145) L 09/10/17 05:09 Potassium 4.8 mmol/L (3.6-5.0) 09/10/17 05:09 Chloride 100.8 mmol/L (98-107) 09/10/17 05:09 Carbon Dioxide 21 mmol/L (22-30) L 09/10/17 05:09 Anion Gap 17 mmol/L 09/10/17 05:09 BUN 7 mg/dL (7-17) 09/10/17 05:09 Creatinine 0.5 mg/dL (0.7-1.2) L 09/10/17 05:09 Estimated GFR > 60 ml/min 09/10/17 05:09 BUN/Creatinine Ratio 14 % 09/10/17 05:09 Glucose 406 mg/dL (65-100) H 09/10/17 05:09 POC Glucose 233 (70-105) H 09/11/17 11:50 Hemoglobin A1c 11.3 % (4-6) H 09/07/17 18:44 Calcium 8.3 mg/dL (8.4-10.2) L 09/10/17 05:09 Phosphorus 3.10 mg/dL (2.5-4.5) 09/10/17 05:09 Magnesium 1.80 mg/dL (1.7-2.3) 09/10/17 05:09 Total Creatine Kinase 95 units/L (30-135) 09/08/17 05:03 CK-MB (CK-2) 1.2 ng/mL (0.0-4.0) 09/08/17 05:03 CK-MB (CK-2) Rel Index 1.2 (0-4) 09/08/17 05:03 Troponin T < 0.010 ng/mL (0.00-0.029) 09/08/17 05:03 Urine Color Yellow (Yellow) 09/07/17 18:14 Urine Turbidity Clear (Clear) 09/07/17 18:14 Urine pH 5.0 (5.0-7.0) 09/07/17 18:14 Ur Specific [place] 1.031 (1.003-1.030) H 09/07/17 18:14 Urine Protein <15 mg/dl mg/dL (Negative) 09/07/17 18:14 Urine Glucose (UA) >=500 mg/dL (Negative) 09/07/17 18:14 Urine Ketones 80 mg/dL (Negative) 09/07/17 18:14 Urine Blood Sm (Negative) 09/07/17 18:14 Urine Nitrite Neg (Negative) 09/07/17 18:14 Urine Bilirubin Neg (Negative) 09/07/17 18:14 Urine Urobilinogen < 2.0 mg/dL (<2.0) 09/07/17 18:14 Ur Leukocyte Esterase Lg (Negative) 09/07/17 18:14 Urine WBC (Auto) 19.0 /HPF (0.0-6.0) H 09/07/17 18:14 Urine RBC (Auto) 47.0 /HPF (0.0-6.0) 09/07/17 18:14 U Epithel Cells (Auto) 1.0 /HPF (0-13.0) 09/07/17 18:14 Urine Bacteria (Auto) 1+ /HPF (Negative) 09/07/17 18:14 Urine Mucus Few /HPF 09/07/17 18:14 Urine Yeast (Budding) 2+ /HPF 09/07/17 18:14
[2017-09-11] MEDS ORDERED: MYCOSTATIN TP SCH (22:00)
[2017-09-11] MEDS: LEVAQUIN PO SCH (22:30)
[2017-09-11] MEDS: MYCOSTATIN TP SCH (22:33)
[2017-09-12] MEDS: MORPHINE IV PRN ×2 (04:39→11:00)
[2017-09-12] MEDS: HYDROCORTISONE CR TP SCH ×2 (06:24→15:17)
[2017-09-12] MEDS: NEURONTIN PO SCH ×2 (06:25→13:58)
[2017-09-12 08:00] LABS: Anion Gap 17 mmol/L; BUN/Creatinine Ratio 12; Blood Urea Nitrogen 6 mg/dL (7-17); Calcium 8.6 mg/dL (8.4-10.2); Carbon Dioxide 24 mmol/L (22-30); Chloride 105.6 mmol/L (98-107); Glucose 149 mg/dL (65-100); Sodium 143 mmol/L (137-145)
[2017-09-12] MEDS: NOVOLOG SUB-Q SCH ×3 (08:17→17:50)
[2017-09-12] MEDS: NACL 0.9% 1000 ML 1,000 ML IV SCH (08:22)
[2017-09-12] MEDS: COZAAR PO SCH (09:54)
[2017-09-12] MEDS: LASIX PO SCH (09:55)
[2017-09-12] MEDS: PEPCID PO SCH (10:55)
[2017-09-12] MEDS: LOVENOX SUB-Q SCH (10:55)
[2017-09-12] MEDS: MYCOSTATIN TP SCH (10:55)
--- NOTE | 2017-09-12 12:55 | Discharge Summary ---
Providers - Providers Date of Admission: 09/07/17 23:19 Date of discharge: 09/12/17 Attending physician: SD RESENDIZ Primary care physician: CORPORATE DEVELOPMENT OFFICER Hospitalization Reason for admission: intractable nausea and vomiting/DKA Condition: Stable Pertinent studies: CT abdomen and pelvis; no acute abnormality, small umbilical hernia Hospital course: 57-year-old female patient with significant past medical history of type 1 diabetes mellitus hypertension admitted through emergency room with intractable nausea and vomiting of one to 2 days gestation, initial evaluation was consistent with diabetic ketoacidosis Admitted to ICU, DKA pathway was initiated, sugars have stabilized insulin drip discontinued and long-acting insulin was started and transferred to medical floor Patient received diabetic education and nutrition consult, strongly advised to comply with medications diet and follow-up visit Patient strongly advised to see diabeticlist application manager for diffuse monitoring and better control of her blood sugars Date of discharge patient is comfortable no new complaints physical examination within normal limits Hemodynamically and clinically stable for discharge Discharge Diagnosis; --Diabetic ketoacidosis; resolved --Type 1 diabetes mellitus; on sliding scale coverage and ADA diet , increase 70 /30 insulin dose Hemoglobin A1c 11.3 , counseling done patient advised to comply with medications ,diet and follow- up visits , --Hypertension; resume home antihypertensives and when necessary medications --Allergic rash in the thigh; supportive care with hydrocortisone cream and Benadryl as needed --Peripheral neuropathy; continue Neurontin --Morbid obesity; counseling done, advised diet modification and exercise as tolerated and weight reduction Patient may benefit by outpatient bariatric surgical evaluation for weight reduction program when medically stable Disposition: DC-01 TO HOME OR SELFCARE Time spent for discharge: 32 min Core Measure Documentation - Palliative Care Palliative Care/ Comfort Measures: Not Applicable - Core Measures Any of the following diagnoses?: none Exam - Constitutional Vitals: Temp Pulse Resp BP Pulse Ox 98.6 F 80 16 107/80 97 09/12/17 06:58 09/12/17 09:54 09/12/17 06:58 09/12/17 09:54 09/12/17 06:58 General appearance: Present: no acute distress, well-nourished, obese ( morbidly obese) - EENT Eyes: Present: PERRL, EOM intact - Neck Neck: Present: supple, normal ROM - Respiratory Respiratory effort: normal Respiratory: bilateral: diminished, negative: rales, rhonchi, wheezing - Cardiovascular Rhythm: regular Heart Sounds: Present: S1 & S2 - Extremities Extremities: no ischemia, No edema - Abdominal General gastrointestinal: Present: soft, non-tender, non-distended, normal bowel sounds - Integumentary Integumentary: Present: clear, warm - Musculoskeletal Musculoskeletal: strength equal bilaterally, generalized weakness - Psychiatric Psychiatric: appropriate mood/affect, cooperative - Neurologic Neurologic: CNII-XII intact, moves all extremities Plan Activity: no restrictions, other (diet modification, exercise as tolerated, weight reduction when medically stable) Diet: diabetic Special Instructions: smoking cessation Additional Instructions: Patient advised to comply with medications and diet, follow-up visits and exercise as tolerated, and weight reduction, Follow up with: PRIMARY CAREMD [Primary Care Provider] - 3-5 Days SABINE MANE MD [Staff Physician] - 7 Days Prescriptions: Hydrocortisone 1% [Hydrocortisone 1% CREAM] 1 applic TP Q8HR #1 tube Insulin NPH/Regular [NovoLIN 70/30] 26 unit SUB-Q BIDDIAB 30 Days units Insulin Regular, Human [Novolin R] 1 units IJ QACHS 30 Days vial Nystatin Cream [Mycostatin Cream] 1 applic TP BID #1 tube Other Discharge Orders: Glucometer supplies[Amb] Location: Determined By Patient
[2017-09-12 15:33] VITALS: BP 125/51
== END 2017-09-12 18:50 | disposition home or self-care (01) | DRG 638 ==
LOC: ED 17:53 → CC1 23:19 → 3A 09-09 09:17
PROVIDERS: ADMIT Internal Medicine; ATTEND Internal Medicine
DX: E10.10 Type 1 diabetes mellitus with ketoacidosis without coma (principal); N39.0 Urinary tract infection, site not specified; Z68.44 Body mass index [BMI] 60.0-69.9, adult; I10 Essential (primary) hypertension; R07.9 Chest pain, unspecified; E10.42 Type 1 diabetes mellitus with diabetic polyneuropathy; T78.40XA Allergy, unspecified, initial encounter; E66.01 Morbid (severe) obesity due to excess calories; F17.200 Nicotine dependence, unspecified, uncomplicated; Z71.89 Other specified counseling; Z71.3 Dietary counseling and surveillance; Z79.4 Long term (current) use of insulin; Z79.899 Other long term (current) drug therapy; Z82.49 Family history of ischemic heart disease and other diseases of the circulatory system; Z83.3 Family history of diabetes mellitus; Z91.14 Patient's other noncompliance with medication regimen
CPT/HCPCS: 36415; 74177; 80048; 81001; 82550; 82553; 82805; 82962; 83036; 83735; 84100; 84484; 85025; 87086; 93005; 93010; 96365; 96375; 99406; A6250; J1650; J1815; J1956; J2270; J2405; J3010; J7030; Q9967

== ENCOUNTER 2018-11-10 19:01 | Inpatient (IN) | payer MEDICAID ==
[2018-11-10 19:44] LABS: Basophils # (Auto) 0.1 K/mm3 (0.0-0.1); Basophils % (Auto) 0.7 % (0.0-1.8); Eosinophils % (Auto) 0.1 % (0.0-4.3); Hematocrit 47.1 % (30.3-42.9); Hemoglobin 15.2 gm/dl (10.1-14.3); Lymphocytes # (Auto) 1.3 K/mm3 (1.2-5.4); Lymphocytes % (Auto) 11.6 % (13.4-35.0); Mean Corpuscular HGB Conc 32 % (30-34); Mean Corpuscular Volume 89 fl (79-97); Monocytes # (Auto) 0.8 K/mm3 (0.0-0.8); Monocytes % (Auto) 7.3 % (0.0-7.3); Platelet Count 294 K/mm3 (140-440); Red Cell Distribution Width 14.5 % (13.2-15.2)
[2018-11-10 19:47] LABS: BUN/Creatinine Ratio 11; Blood Urea Nitrogen 11 mg/dL (7-17); Calcium 9.2 mg/dL (8.4-10.2); Hemolysis Index 0
[2018-11-10] MEDS ORDERED: NACL 0.9% 1000 ML 1,000 ML IV ONE ×2 (20:45→20:48)
[2018-11-10] MEDS ORDERED: D50W (25GM) Syringe IV PRN (20:45)
[2018-11-10] MEDS ORDERED: HumuLIN R 100 UNITS in NACL 0.9% 99 ML IV SCH (21:00)
--- NOTE | 2018-11-10 21:00 | Emergency Department Report ---
ED General Adult HPI - General Chief complaint: Hyperglycemia Stated complaint: DKA Time Seen by Provider: 11/10/18 20:22 Source: patient Mode of arrival: Ambulatory Limitations: No Limitations - History of Present Illness Initial comments: 38-year-old female presents to ED stating "I think I'm in DKA." Patient has history of diabetes, has not had her insulin in 6 months. Patient states her insurance will not cover her insulin. States she had an appointment with her primary care physician during that time, but missed her appointment. Patient states over the last week she has had nausea, vomiting, generalized weakness. Denies fever. -: week(s) (1) Consistency: constant Improves with: none Worsens with: none Associated Symptoms: nausea/vomiting, shortness of breath. denies: fever/chills - Related Data Home Medications Medication Instructions Recorded Confirmed Last Taken No Known Home Medications [No 11/11/18 11/11/18 Unknown Reported Home Medications] Allergies Allergy/AdvReac Type Severity Reaction Status Date / Time lactose Allergy Unknown Unknown Verified 07/29/15 17:59 penicillin G Allergy Dizziness Verified 09/27/15 15:55 clarithromycin [From Biaxin] AdvReac Shortness Verified 07/29/15 17:59 of Breath ED Review of Systems ROS: Stated complaint: DKA Other details as noted in HPI Comment: All other systems reviewed and negative Constitutional: denies: chills, fever Respiratory: shortness of breath. denies: cough Cardiovascular: denies: chest pain Gastrointestinal: nausea, vomiting. denies: abdominal pain, diarrhea ED Past Medical Hx - Past Medical History Hx Congestive Heart Failure: No Hx Diabetes: Yes Hx Deep Vein Thrombosis: No Hx Arthritis: No Hx Asthma: Yes Hx COPD: No Hx HIV: No Additional medical history: MORBID OBESITY - Surgical History Hx Pacemaker: No Hx Internal Defibrillator: No Additional Surgical History: X2. BOWEL REPAIR - Social History Smoking Status: Current Some Day Smoker Substance Use Type: Alcohol - Medications Home Medications: Home Medications Medication Instructions Recorded Confirmed Last Taken Type No Known Home Medications [No 11/11/18 11/11/18 Unknown History Reported Home Medications] ED Physical Exam - General Limitations: No Limitations General appearance: alert, in no apparent distress, obese - Head Head exam: Present: atraumatic, normocephalic - Eye Eye exam: Present: normal appearance - ENT ENT exam: Present: mucous membranes moist - Neck Neck exam: Present: normal inspection - Respiratory Respiratory exam: Present: normal lung sounds bilaterally. Absent: respiratory distress - Cardiovascular Cardiovascular Exam: Present: normal rhythm, tachycardia - GI/Abdominal GI/Abdominal exam: Present: soft. Absent: distended, tenderness - Extremities Exam Extremities exam: Present: normal inspection - Neurological Exam Neurological exam: Present: alert, oriented X3 - Psychiatric Psychiatric exam: Present: normal affect, normal mood - Skin Skin exam: Present: warm, dry, intact, normal color ED Course Vital Signs 11/10/18 11/10/18 11/11/18 19:07 20:50 02:49 Temperature 97.5 F L 98.3 F Pulse Rate 116 H 114 H Respiratory 20 20 15 Rate Blood Pressure 179/94 Blood Pressure 149/87 [Left] O2 Sat by Pulse 99 99 100 Oximetry ED Medical Decision Making - Lab Data Result diagrams: 11/10/18 19:16 11/11/18 01:06 - Radiology Data Radiology results: report reviewed, image reviewed - Medical Decision Making Patient out of insulin 6 months. Currently in DKA with glucose of 573, anion gap of 38, and bicarbonate of 10. Insulin drip and IV fluids initiated. Patient placed on DKA protocol. Chest x-ray negative. Patient admitted to hospitalist, Dr. Blackwood. - Differential Diagnosis hyperglycemia, DKA, pneumonia, pulem edema Critical Care Time: Yes Critical care time in (mins) excluding proc time.: 30 Critical care attestation.: If time is entered above; I have spent that time in minutes in the direct care of this critically ill patient, excluding procedure time. Critical Care Time: 30 minutes ED Disposition Clinical Impression: DKA (diabetic ketoacidoses) Disposition: -09 OP ADMIT IP TO THIS HOSP Is pt being admited?: Yes Condition: Stable
[2018-11-10 21:21] LABS: BUN/Creatinine Ratio 14; Blood Urea Nitrogen 11 mg/dL (7-17); Calcium 9.5 mg/dL (8.4-10.2); Hemolysis Index 31
--- NOTE | 2018-11-10 21:42 | XRay Report ---
FINAL REPORT EXAM: XR CHEST 1V AP HISTORY: sob TECHNIQUE: AP portable view of the chest. PRIORS: None. FINDINGS: The cardiomediastinal silhouette appears normal. The lungs are clear. The bones and soft tissues are unremarkable. IMPRESSION: No evidence of acute cardiopulmonary disease
[2018-11-10] MEDS: D5W/0.45% NACL/KCL 20 MEQ 20 MEQ/1,000 ML BAG IV SCH (22:38)
[2018-11-10] MEDS ORDERED: TYLENOL PO PRN (23:04)
[2018-11-10] MEDS ORDERED: TYLENOL PR PRN (23:12)
[2018-11-10] MEDS: ZOFRAN IV PRN (23:20)
[2018-11-10 23:45] LABS: BUN/Creatinine Ratio 16; Blood Urea Nitrogen 11 mg/dL (7-17); Calcium 8.7 mg/dL (8.4-10.2); Hemolysis Index 4
[2018-11-10] MEDS ORDERED: NACL 0.9% 1000 ML 1,000 ML IV SCH (23:45)
[2018-11-11] MEDS: D5W/0.45% NACL/KCL 20 MEQ 20 MEQ/1,000 ML BAG IV SCH (00:19)
[2018-11-11] MEDS ORDERED: D5W/0.45% NACL/KCL 20 MEQ 20 MEQ/1,000 ML BAG IV ONE (00:26)
[2018-11-11 01:37] LABS: BUN/Creatinine Ratio 18; Blood Urea Nitrogen 11 mg/dL (7-17); Calcium 8.8 mg/dL (8.4-10.2); Hemolysis Index 12
[2018-11-11 02:51] LABS: Bacteria,Urine 1+ /HPF (Negative); Bilirubin,Urine NEG (Negative); Blood,Urine SM (Negative); Color,Urine Yellow (Yellow); Hyaline Casts,Urine 1 /LPF; Mucus,Urine FEW /HPF; Urobilinogen,Urine < 2.0 mg/dL (<2.0)
[2018-11-11 03:41] LABS: BUN/Creatinine Ratio 17; Blood Urea Nitrogen 10 mg/dL (7-17); Calcium 8.9 mg/dL (8.4-10.2); Hemolysis Index 29
[2018-11-11] MEDS ORDERED: D5W/0.45% NACL/KCL 20 MEQ 20 MEQ/1,000 ML BAG IV SCH (06:00)
[2018-11-11 06:26] LABS: BUN/Creatinine Ratio 20; Blood Urea Nitrogen 10 mg/dL (7-17); Calcium 8.9 mg/dL (8.4-10.2); Hemolysis Index 24
--- NOTE | 2018-11-11 06:34 | History and Physical Report ---
CHIEF COMPLAINT: Elevated blood sugar. HISTORY OF PRESENT ILLNESS: The patient is a 38-year-old female who said she has been having increased urination and increase in intake of water with weakness, which has been going on for some days. There is also history of nausea and vomiting with no history of fever or chills and no history of shortness of breath or chest pain. The patient states she has not had insulin in nearly 6 months because her insurance does not cover her insulin tretment she and presented with these symptoms. PAST MEDICAL HISTORY: Pertinent for diabetes mellitus. Also, the patient has past medical history of asthma, morbid obesity. PAST SURGICAL HISTORY: Pertinent for x 2 and bowel repair. FAMILY HISTORY: Noncontributory. SOCIAL HISTORY: The patient drinks alcohol and smokes cigarettes and does not use illicit drugs. MEDICATIONS: The patient's home medications are not known. ALLERGIES: THE PATIENT IS ALLERGIC TO PENICILLIN, CLARITHROMYCIN, and LACTOSE. REVIEW OF SYSTEMS: CONSTITUTIONAL: There is no fever, no chills, no diaphoresis. HEENT: There is no headache or sore throat. CARDIOVASCULAR: There is no chest pain or orthopnea. RESPIRATORY SYSTEM: There is no shortness of breath or cough. GASTROINTESTINAL SYSTEM: There is nausea and vomiting but no abdominal pain, no diarrhea or constipation. NEUROLOGICAL: There is generalized weakness, but no numbness. No altered mental status. MUSCULOSKELETAL: There is no joint pain or swelling. DERMATOLOGICAL SYSTEM: There is no skin rash or itching. GENITOURINARY SYSTEM: There is urinary frequency, but no dysuria, hematuria or painful micturition. There is no flank pain. Rest of system review is normal. PHYSICAL EXAMINATION: GENERAL: At the time of examination, the patient was found to be alert, oriented x 3, obese and not in acute distress. VITAL SIGNS: At the initial time of presentation show temperature of 97.5 degrees Fahrenheit, pulse of 116, respiration 20, blood pressure 179/94, O2 sat of 99% on room air. HEENT: Showed pupils to be equal, round, reactive to light and accommodation. Extraocular muscles are intact. NECK: Supple with no JVD or carotid bruit. CARDIOVASCULAR: Showed normal first and second heart sounds with no gallops or murmurs. RESPIRATORY SYSTEM: Show good air entry on both sides of the lungs with no abnormal breath sounds. GASTROINTESTINAL SYSTEM: Show abdomen to be full, soft, nontender with no organomegaly or rigidity. NEUROLOGICAL: Shows no focal deficit. MUSCULOSKELETAL SYSTEM: Show no joint swelling or tenderness. DERMATOLOGICAL SYSTEM: Show no skin rash. GENITOURINARY SYSTEM: Showing no costovertebral angle tenderness. PERTINENT LABORATORY AND IMAGING STUDIES: The patient had a chest done that shows no acute cardiopulmonary lesion. The patient's lab results show CBC with normal white count, elevated hemoglobin of 15.2 and elevated hematocrit of 47.1 with normal MCV. The patient's CBC with differential showing elevated segmented neutrophil count of 80.3%. The patient venous blood gas is low with a value of 7.2. The patient's chemistry showed low sodium of 125, slightly elevated potassium level of 5.1 with low chloride level of 89.8 and low CO2 of 10 with the anion gap of about 25 and elevated blood glucose level of 573. The patient's urinalysis showed large urine leukocyte esterase with high urine wbc's and high urine rbc's and 1+ bacteria. Urine nitrite level is negative. DIAGNOSES: 1. Diabetes ketoacidosis. 2. Urinary tract infection. PLAN OF ACTION: 1. The patient will be admitted to the ICU as inpatient and will continue the DKA protocol started in the Emergency Room that involves IV regular insulin drip, which will be titrated according to protocol. Also, the patient will be on IV normal saline at 200 mL an hour and will have basic metabolic panel checked every 2 hours and every 8 hours. The patient will also have Accu-Chek every hour and will be on p.r.n. medications like Zofran 4 mg IV every 8 hours for nausea and vomiting and Tylenol 650 mg rectally every 4 hours as needed for fever and headache. The patient will be n.p.o. until the patient is out of DKA. 2. When the patient's blood sugar is below 250, the fluid will be switched from normal saline to D5 half normal with 20 mEq of potassium in 1 liter of fluid, running at 120 mL an hour. 3. The patient will have critical care consult with Dr. Mann because of ICU admission. The patient will be on IV Levaquin 250 mg daily for treatment of UTI. When the patient is out of DKA, which will be shown normal anion gap, the patient will be given subQ regular insulin with a dose of 4 units and the insulin drip will be titrated off and also the D5 half normal will be replaced with normal saline at 125 mL an hour. The patient will be fed with 1800 calorie ADA consistent carbohydrate diet. The patient was switched to sliding scale using regular insulin moderate dose. JOB# [id number] OCN/NTS MTDD
[2018-11-11] MEDS ORDERED: ZOFRAN ONE (08:17)
[2018-11-11] MEDS: ZOFRAN IV PRN (08:20)
[2018-11-11] MEDS ORDERED: LEVAQUIN 250MG/50ML 250 MG/50 ML BAG IV SCH (10:00)
[2018-11-11] MEDS ORDERED: HEPARIN ONE (10:16)
[2018-11-11] MEDS ORDERED: LANTUS SUB-Q STA (10:49)
[2018-11-11] MEDS: HumaLOG SUB-Q SCH ×3 (12:11→23:03)
[2018-11-11] MEDS: HEPARIN SUB-Q SCH ×2 (12:12→21:57)
--- NOTE | 2018-11-11 13:10 | Progress Note ---
Assessment and Plan Assessment and plan: 38F with pmh of dm who pw Polyuria, polydipsia. She has not had insulin in over 6 months because her insurance did not cover it per patient. Past medical history; diabetes, asthma morbid obesity Diagnoses Diabetic ketoacidosis Uncontrolled diabetes Urinary tract infection Sepsis Plan Continue insulin drip, will transition to subcutaneous insulin today Continue IV fluids Antibiotics, obtain urine culture is patient has [employer] medicaid, so unclear why she could not fill her rx Case management consults to provide resources as she is having issues with her insurance DVT prophylaxis early ambulation CCT 33 minutes History Interval history: Review of systems Constitutional: No fevers, no malaise, no joint pains CVS: No chest pain, no orthopnea, no dyspnea on exertion, no pedal edema GI: No abdominal pain, no diarrhea, no vomiting, no constipation Respiratory: No shortness of breath, no wheezing, no coughing Hospitalist Physical - Physical exam Narrative exam: General.: Appears well, no distress, nontoxic HEENT: Moist mucous membranes, extraocular muscles intact, no lymphadenopathy Neck: supple Cardiac: S1-S2 heard Lungs: clear to auscultation bilaterally Abdomen: soft , nontender, nondistended, bowel sounds positive Extremities: no edema clubbing or cyanosis Skin: no rash or lesions Neurologic: no gross focal deficits Psych: appropriate behavior, appropriate mood, corporative, judgment intact - Constitutional Vitals: Temp Pulse Resp BP Pulse Ox 98.3 F 102 H 17 106/74 96 11/10/18 20:50 11/11/18 08:31 11/11/18 08:31 11/11/18 08:31 11/11/18 08:31 Results - Labs CBC & Chem 7: 11/10/18 19:16 11/12/18 05:40 Labs: Laboratory Last Values WBC 10.8 K/mm3 (4.5-11.0) 11/10/18 19:16 RBC 5.30 M/mm3 (3.65-5.03) H 11/10/18 19:16 Hgb 15.2 gm/dl (10.1-14.3) H 11/10/18 19:16 Hct 47.1 % (30.3-42.9) H 11/10/18 19:16 MCV 89 fl (79-97) 11/10/18 19:16 MCH 29 pg (28-32) 11/10/18 19:16 MCHC 32 % (30-34) 11/10/18 19:16 RDW 14.5 % (13.2-15.2) 11/10/18 19:16 Plt Count 294 K/mm3 (140-440) 11/10/18 19:16 Lymph % (Auto) 11.6 % (13.4-35.0) L 11/10/18 19:16 [place] % (Auto) 7.3 % (0.0-7.3) 11/10/18 19:16 Eos % (Auto) 0.1 % (0.0-4.3) 11/10/18 19:16 Baso % (Auto) 0.7 % (0.0-1.8) 11/10/18 19:16 Lymph # 1.3 K/mm3 (1.2-5.4) 11/10/18 19:16 [place] # 0.8 K/mm3 (0.0-0.8) 11/10/18 19:16 Eos # 0.0 K/mm3 (0.0-0.4) 11/10/18 19:16 Baso # 0.1 K/mm3 (0.0-0.1) 11/10/18 19:16 Seg Neutrophils % 80.3 % (40.0-70.0) H 11/10/18 19:16 Seg Neutrophils # 8.7 K/mm3 (1.8-7.7) H 11/10/18 19:16 VBG pH 7.218 (7.320-7.420) L 11/10/18 19:16 Sodium 131 mmol/L (137-145) L 11/11/18 05:48 Potassium 4.9 mmol/L (3.6-5.0) 11/11/18 05:48 Chloride 106.9 mmol/L (98-107) 11/11/18 05:48 Carbon Dioxide 12 mmol/L (22-30) L 11/11/18 05:48 Anion Gap 17 mmol/L 11/11/18 05:48 BUN 10 mg/dL (7-17) 11/11/18 05:48 Creatinine 0.5 mg/dL (0.7-1.2) L 11/11/18 05:48 Estimated GFR > 60 ml/min 11/11/18 05:48 BUN/Creatinine Ratio 20 % 11/11/18 05:48 Glucose 219 mg/dL (65-100) H 11/11/18 05:48 POC Glucose 134 (70-105) H 11/11/18 10:47 Calcium 8.9 mg/dL (8.4-10.2) 11/11/18 05:48 Phosphorus 2.90 mg/dL (2.5-4.5) 11/10/18 20:54 Magnesium 1.90 mg/dL (1.7-2.3) 11/10/18 20:54 Urine Color Yellow (Yellow) 11/11/18 02:04 Urine Turbidity Slightly-cloudy (Clear) 11/11/18 02:04 Urine pH 5.0 (5.0-7.0) 11/11/18 02:04 Ur Specific [place] 1.024 (1.003-1.030) 11/11/18 02:04 Urine Protein 30 mg/dl mg/dL (Negative) 11/11/18 02:04 Urine Glucose (UA) >=500 mg/dL (Negative) 11/11/18 02:04 Urine Ketones 80 mg/dL (Negative) 11/11/18 02:04 Urine Blood Sm (Negative) 11/11/18 02:04 Urine Nitrite Neg (Negative) 11/11/18 02:04 Urine Bilirubin Neg (Negative) 11/11/18 02:04 Urine Urobilinogen < 2.0 mg/dL (<2.0) 11/11/18 02:04 Ur Leukocyte Esterase Lg (Negative) 11/11/18 02:04 Urine WBC (Auto) 56.0 /HPF (0.0-6.0) H 11/11/18 02:04 Urine RBC (Auto) 26.0 /HPF (0.0-6.0) 11/11/18 02:04 U Epithel Cells (Auto) 4.0 /HPF (0-13.0) 11/11/18 02:04 Urine Bacteria (Auto) 1+ /HPF (Negative) 11/11/18 02:04 Hyaline Casts 1 /LPF 11/11/18 02:04 Urine Mucus Few /HPF 11/11/18 02:04 Urine Yeast (Budding) 1+ /HPF 11/11/18 02:04
[2018-11-11] MEDS: NACL 0.9% 1000 ML 1,000 ML IV SCH ×2 (13:56→23:02)
--- NOTE | 2018-11-11 14:19 | Consultation ---
History of Present Illness Consult date: 11/11/18 History of present illness: PULMONARY CONSULTATION DR. ALANIS THANK YOU FOR ASKING US TO PARTICIPATE IN THE CARE OF THIS PATIENT. 38-year-old female presents to ED with history of diabetes, has not had her insulin in 6 months. Patient states her insurance will not cover her insulin. States she had an appointment with her primary care physician during that time, but missed her appointment. Patient states over the last week she has had nausea, vomiting, generalized weakness. Denies fever. Patient came in with blood sugur of 310. Anion gap of 21.Venous PH 7.2. Patient started on I/V fluids and I/V insulin drip.Patient alert, awake and says feeling better. Patient morbidley Obese and has history of sleep apnea.Patient says not using CPAP for years. Patient denies other medical problems. Patient has history of smoking 1 pack x 14 years. Counselled to stop smoking. Denies alcohol or drug abuse. Not working. Says getting sick O[place]. Not and has 2 children Allergic to pencillin, Clarithromycin and lactose. Past History Past Medical History: diabetes, other (Sleep apnea.) Medications and Allergies Allergies Allergy/AdvReac Type Severity Reaction Status Date / Time lactose Allergy Unknown Unknown Verified 07/29/15 17:59 penicillin G Allergy Dizziness Verified 09/27/15 15:55 clarithromycin [From Biaxin] AdvReac Shortness Verified 07/29/15 17:59 of Breath Home Medications Medication Instructions Recorded Confirmed Last Taken Type No Known Home Medications [No 11/11/18 11/11/18 Unknown History Reported Home Medications] Active Meds: Active Medications Acetaminophen (Tylenol) 650 mg DE Q4H PRN PRN Reason: Fever >101 Dextrose (D50w (25gm) Syringe) 0 ml IV PRN PRN PRN Reason: Hypoglycemia Heparin Sodium (Porcine) (Heparin) 5,000 unit SUB-Q Q12HR COURTNEY Last Admin: 11/11/18 12:12 Dose: 5,000 unit Documented by: Insulin Human Regular 100 (units/ Sodium Chloride) 100 mls @ 7 mls/hr IV TITR COURTNEY; Protocol Last Titration: 11/11/18 09:18 Dose: 6 units/hr, 6 mls/hr Documented by: Levofloxacin/Dextrose (Levaquin 250mg/50ml) 250 mg in 50 mls @ 50 mls/hr IV Q24HR COURTNEY; Protocol Last Admin: 11/11/18 11:10 Dose: 50 mls/hr Documented by: Sodium Chloride (Nacl 0.9% 1000 Ml) 1,000 mls @ 125 mls/hr IV DIRECT COURTNEY Stop: 11/13/18 21:59 Last Admin: 11/11/18 13:56 Dose: 125 mls/hr Documented by: Insulin Glargine (Lantus) 10 units SUB-Q QHS COURTNEY Insulin Human Lispro (Humalog) 0 unit SUB-Q ACHS COURTNEY; Protocol Last Admin: 11/11/18 12:11 Dose: Not Given Documented by: Ondansetron HCl (Zofran) 4 mg IV Q8H PRN PRN Reason: Nausea And Vomiting Last Admin: 11/11/18 08:20 Dose: 4 mg Documented by: Review of Systems All systems: negative Physical Examination Vital signs: Vital Signs Temp Pulse Resp BP Pulse Ox 97.5 F L 116 H 20 179/94 99 11/10/18 19:07 11/10/18 19:07 11/10/18 19:07 11/10/18 19:07 11/10/18 19:07 General appearance: no acute distress, alert, other (Morbidley Obese.) Eyes: non-icteric ENT: oropharynx moist Neck: supple, no JVD Ascultation: Bilateral: diminished breath sounds (At the bases.) Cardiovascular: regular rate and rhythm Gastrointestinal: normoactive bowel sounds, soft, non-tender Integumentary: normal Extremities: no cyanosis, no edema Musculoskeletal: no deformities Gait: poor gait normal mental status, non-focal exam, pupils equal and round, CN II-XII normal mood appropriate Results - Laboratory Findings CBC and BMP: 11/10/18 19:16 11/11/18 05:48 Abnormal lab findings: Abnormal Labs 11/10/18 11/10/18 11/10/18 19:13 19:16 19:16 RBC 5.30 H Hgb 15.2 H Hct 47.1 H Lymph % (Auto) 11.6 L Seg Neutrophils % 80.3 H Seg Neutrophils # 8.7 H VBG pH Sodium 125 L Potassium 5.1 H Chloride 89.8 L Carbon Dioxide 10 L Creatinine Glucose 573 H* POC Glucose 445 H Urine WBC (Auto) 11/10/18 11/10/18 11/10/18 19:16 20:50 20:54 RBC Hgb Hct Lymph % (Auto) Seg Neutrophils % Seg Neutrophils # VBG pH 7.218 L Sodium 125 L Potassium 5.3 H Chloride 90.2 L Carbon Dioxide 10 L Creatinine Glucose 530 H* POC Glucose 413 H Urine WBC (Auto) 11/10/18 11/10/18 11/11/18 22:53 23:25 00:18 RBC Hgb Hct Lymph % (Auto) Seg Neutrophils % Seg Neutrophils # VBG pH Sodium 130 L Potassium Chloride Carbon Dioxide 12 L Creatinine Glucose 330 H POC Glucose 310 H 202 H Urine WBC (Auto) 11/11/18 11/11/18 11/11/18 01:05 01:06 02:04 RBC Hgb Hct Lymph % (Auto) Seg Neutrophils % Seg Neutrophils # VBG pH Sodium 132 L Potassium Chloride Carbon Dioxide 11 L Creatinine 0.6 L Glucose 196 H POC Glucose 188 H Urine WBC (Auto) 56.0 H 11/11/18 11/11/18 11/11/18 02:10 03:01 04:16 RBC Hgb Hct Lymph % (Auto) Seg Neutrophils % Seg Neutrophils # VBG pH Sodium 130 L Potassium Chloride Carbon Dioxide 12 L Creatinine 0.6 L Glucose 194 H POC Glucose 162 H 173 H Urine WBC (Auto) 11/11/18 11/11/18 11/11/18 05:48 06:04 08:10 RBC Hgb Hct Lymph % (Auto) Seg Neutrophils % Seg Neutrophils # VBG pH Sodium 131 L Potassium Chloride Carbon Dioxide 12 L Creatinine 0.5 L Glucose 219 H POC Glucose 200 H 177 H Urine WBC (Auto) 11/11/18 11/11/18 09:18 10:47 RBC Hgb Hct Lymph % (Auto) Seg Neutrophils % Seg Neutrophils # VBG pH Sodium Potassium Chloride Carbon Dioxide Creatinine Glucose POC Glucose 198 H 134 H Urine WBC (Auto) - Diagnostic Findings Chest x-ray: report reviewed (No acute cardiopulmonary process.) Assessment and Plan 38-year-old female presents to ED with history of diabetes, has not had her insulin in 6 months. Patient states her insurance will not cover her insulin. States she had an appointment with her primary care physician during that time, but missed her appointment. Patient states over the last week she has had nausea, vomiting, generalized weakness. Denies fever. Patient came in with blood sugur of 310. Anion gap of 21.Venous PH 7.2. Patient started on I/V fluids and I/V insulin drip.Patient alert, awake and says feeling better. Patient morbidley Obese and has history of sleep apnea.Patient says not using CPAP for years. Patient denies other medical problems. Patient has history of smoking 1 pack x 14 years. Counselled to stop smoking. Denies alcohol or drug abuse. Not working. Says getting sick [place]. Not and has 2 children Allergic to pencillin, Clarithromycin and lactose - Patient Problems (1) DKA (diabetic ketoacidoses) Current Visit: Yes Status: Acute Plan to address problem: Continue I/V fluids and Insulin. Management as per primary care. (2) ARF (acute renal failure) Current Visit: No Status: Acute Plan to address problem: Management as per nephrology. (3) Dehydration Current Visit: No Status: Acute Plan to address problem: Continue I/V hydration. (4) Morbid obesity Current Visit: No Status: Chronic Plan to address problem: Recommend to loose weight. Explained sleep hygeine. Recommended CPAP. Patient can not use mask. Recommend to repeat sleep study. Patients sleep study many years ago. (5) Smoking greater than 10 pack years Current Visit: Yes Status: Acute Plan to address problem: Counselled to stop smoking.
[2018-11-11] MEDS ORDERED: LANTUS SUB-Q SCH (22:00)
[2018-11-11] MEDS ORDERED: TYLENOL PO PRN (22:10)
[2018-11-11] MEDS: TYLENOL PO PRN (22:57)
[2018-11-12 06:38] LABS: BUN/Creatinine Ratio 16; Blood Urea Nitrogen 8 mg/dL (7-17); Calcium 8.7 mg/dL (8.4-10.2); Hemolysis Index 12
[2018-11-12] MEDS: NACL 0.9% 1000 ML 1,000 ML IV SCH (07:08)
[2018-11-12] MEDS: TYLENOL PO PRN ×2 (07:13→22:12)
--- NOTE | 2018-11-12 07:50 | Progress Note ---
Assessment and Plan Assessment and plan: 38F with pmh of dm who pw Polyuria, polydipsia. She has not had insulin in over 6 months because her insurance did not cover it per patient. Past medical history; diabetes, asthma morbid obesity Diagnoses Diabetic ketoacidosis Uncontrolled diabetes, A1c 13 Urinary tract infection, due to beta hemolytic group B strep Sepsis Plan still hyperglycemic, optimize subcutaneous insulin today Continue IV fluids Antibiotics x 3 days for UTI patient has [facility] medicaid, she will be discharged with generic insulins only, I have printed out a list of insulins on the [facility] formulary and given to the patient. DVT prophylaxis early ambulation History Interval history: Review of systems Constitutional: No fevers, no malaise, no joint pains CVS: No chest pain, no orthopnea, no dyspnea on exertion, no pedal edema GI: No abdominal pain, no diarrhea, no vomiting, no constipation Respiratory: No shortness of breath, no wheezing, no coughing Hospitalist Physical - Physical exam Narrative exam: General.: Appears well, no distress, nontoxic HEENT: Moist mucous membranes, extraocular muscles intact, no lymphadenopathy Neck: supple Cardiac: S1-S2 heard Lungs: clear to auscultation bilaterally Abdomen: soft , nontender, nondistended, bowel sounds positive Extremities: no edema clubbing or cyanosis Skin: no rash or lesions Neurologic: no gross focal deficits Psych: appropriate behavior, appropriate mood, corporative, judgment intact - Constitutional Vitals: Temp Pulse Resp BP Pulse Ox 97.8 F 97 H 20 121/72 98 11/12/18 04:39 11/11/18 22:41 11/12/18 04:39 11/12/18 04:39 11/11/18 22:41 Results - Labs CBC & Chem 7: 11/10/18 19:16 11/12/18 05:40 Labs: Laboratory Last Values WBC 10.8 K/mm3 (4.5-11.0) 11/10/18 19:16 RBC 5.30 M/mm3 (3.65-5.03) H 11/10/18 19:16 Hgb 15.2 gm/dl (10.1-14.3) H 11/10/18 19:16 Hct 47.1 % (30.3-42.9) H 11/10/18 19:16 MCV 89 fl (79-97) 11/10/18 19:16 MCH 29 pg (28-32) 11/10/18 19:16 MCHC 32 % (30-34) 11/10/18 19:16 RDW 14.5 % (13.2-15.2) 11/10/18 19:16 Plt Count 294 K/mm3 (140-440) 11/10/18 19:16 Lymph % (Auto) 11.6 % (13.4-35.0) L 11/10/18 19:16 Power % (Auto) 7.3 % (0.0-7.3) 11/10/18 19:16 Eos % (Auto) 0.1 % (0.0-4.3) 11/10/18 19:16 Baso % (Auto) 0.7 % (0.0-1.8) 11/10/18 19:16 Lymph # 1.3 K/mm3 (1.2-5.4) 11/10/18 19:16 Power # 0.8 K/mm3 (0.0-0.8) 11/10/18 19:16 Eos # 0.0 K/mm3 (0.0-0.4) 11/10/18 19:16 Baso # 0.1 K/mm3 (0.0-0.1) 11/10/18 19:16 Seg Neutrophils % 80.3 % (40.0-70.0) H 11/10/18 19:16 Seg Neutrophils # 8.7 K/mm3 (1.8-7.7) H 11/10/18 19:16 VBG pH 7.218 (7.320-7.420) L 11/10/18 19:16 Sodium 136 mmol/L (137-145) L 11/12/18 05:40 Potassium 4.3 mmol/L (3.6-5.0) 11/12/18 05:40 Chloride 105.4 mmol/L (98-107) 11/12/18 05:40 Carbon Dioxide 17 mmol/L (22-30) L 11/12/18 05:40 Anion Gap 18 mmol/L 11/12/18 05:40 BUN 8 mg/dL (7-17) 11/12/18 05:40 Creatinine 0.5 mg/dL (0.7-1.2) L 11/12/18 05:40 Estimated GFR > 60 ml/min 11/12/18 05:40 BUN/Creatinine Ratio 16 % 11/12/18 05:40 Glucose 292 mg/dL (65-100) H 11/12/18 05:40 POC Glucose 339 (70-105) H 11/11/18 22:48 Hemoglobin A1c 13.1 % (4-6) H 11/12/18 00:54 Calcium 8.7 mg/dL (8.4-10.2) 11/12/18 05:40 Phosphorus 2.90 mg/dL (2.5-4.5) 11/10/18 20:54 Magnesium 1.90 mg/dL (1.7-2.3) 11/10/18 20:54 Urine Color Yellow (Yellow) 11/11/18 02:04 Urine Turbidity Slightly-cloudy (Clear) 11/11/18 02:04 Urine pH 5.0 (5.0-7.0) 11/11/18 02:04 Ur Specific [place] 1.024 (1.003-1.030) 11/11/18 02:04 Urine Protein 30 mg/dl mg/dL (Negative) 11/11/18 02:04 Urine Glucose (UA) >=500 mg/dL (Negative) 11/11/18 02:04 Urine Ketones 80 mg/dL (Negative) 11/11/18 02:04 Urine Blood Sm (Negative) 11/11/18 02:04 Urine Nitrite Neg (Negative) 11/11/18 02:04 Urine Bilirubin Neg (Negative) 11/11/18 02:04 Urine Urobilinogen < 2.0 mg/dL (<2.0) 11/11/18 02:04 Ur Leukocyte Esterase Lg (Negative) 11/11/18 02:04 Urine WBC (Auto) 56.0 /HPF (0.0-6.0) H 11/11/18 02:04 Urine RBC (Auto) 26.0 /HPF (0.0-6.0) 11/11/18 02:04 U Epithel Cells (Auto) 4.0 /HPF (0-13.0) 11/11/18 02:04 Urine Bacteria (Auto) 1+ /HPF (Negative) 11/11/18 02:04 Hyaline Casts 1 /LPF 11/11/18 02:04 Urine Mucus Few /HPF 11/11/18 02:04 Urine Yeast (Budding) 1+ /HPF 11/11/18 02:04
[2018-11-12] MEDS: HumaLOG SUB-Q SCH ×7 (08:24→22:14)
[2018-11-12] MEDS: LEVAQUIN PO SCH (09:50)
[2018-11-12] MEDS: HEPARIN SUB-Q SCH ×2 (09:50→22:11)
[2018-11-12] MEDS ORDERED: LANTUS SUB-Q ONE (13:00)
--- NOTE | 2018-11-12 14:28 | Progress Note ---
Assessment and Plan 38-year-old female presents to ED with history of diabetes, has not had her insulin in 6 months. Patient states her insurance will not cover her insulin. States she had an appointment with her primary care physician during that time, but missed her appointment. Patient states over the last week she has had nausea, vomiting, generalized weakness. Denies fever. Patient came in with blood sugur of 310. Anion gap of 21.Venous PH 7.2. Patient started on I/V fluids and I/V insulin drip.Patient alert, awake and says feeling better. Patient morbidley Obese and has history of sleep apnea.Patient says not using CPAP for years. Patient denies other medical problems. Patient has history of smoking 1 pack x 14 years. Counselled to stop smoking. Denies alcohol or drug abuse. Not working. Says getting sick [place]. Not and has 2 children Allergic to pencillin, Clarithromycin and lactose 11/12/18 Patient alert, awake. Resting on room air. O2 saturation 95%. No acute respiratory distress. - Patient Problems (1) DKA (diabetic ketoacidoses) Current Visit: Yes Status: Acute Plan to address problem: Continue I/V fluids and Insulin. Management as per primary care. (2) ARF (acute renal failure) Current Visit: No Status: Acute Plan to address problem: Management as per nephrology. (3) Dehydration Current Visit: No Status: Acute Plan to address problem: Continue I/V hydration. (4) Morbid obesity Current Visit: No Status: Chronic Plan to address problem: Recommend to loose weight. Explained sleep hygeine. Recommended CPAP. Patient can not use mask. Recommend to repeat sleep study. Patients sleep study many years ago. (5) Smoking greater than 10 pack years Current Visit: Yes Status: Acute Plan to address problem: Counselled to stop smoking. Subjective Date of service: 11/12/18 Interval history: Patient alert, awake. Resting on room air. O2 saturation 95%. No acute respiratory distress. Objective Vital Signs - 12hr 11/12/18 11/12/18 04:39 11:32 Temperature 97.8 F 97.7 F Pulse Rate 100 H Respiratory 20 18 Rate Blood Pressure 121/72 127/82 O2 Sat by Pulse 95 Oximetry Constitutional: no acute distress, alert, other (Morbidley Obese.) Eyes: non-icteric ENT: oropharynx moist Neck: supple, no JVD Ascultation: Bilateral: diminished breath sounds (At the bases.) Cardiovascular: regular rate and rhythm Gastrointestinal: normoactive bowel sounds, soft, non-tender Integumentary: normal Extremities: no cyanosis, no edema Neurologic: normal mental status, non-focal exam, pupils equal and round, CN II- XII normal Psychiatric: mood appropriate CBC and BMP: 11/10/18 19:16 11/12/18 05:40 Abnormal lab findings: Abnormal Labs 11/10/18 11/10/18 11/10/18 19:13 19:16 19:16 RBC 5.30 H Hgb 15.2 H Hct 47.1 H Lymph % (Auto) 11.6 L Seg Neutrophils % 80.3 H Seg Neutrophils # 8.7 H VBG pH Sodium 125 L Potassium 5.1 H Chloride 89.8 L Carbon Dioxide 10 L Creatinine Glucose 573 H* POC Glucose 445 H Hemoglobin A1c Urine WBC (Auto) 11/10/18 11/10/18 11/10/18 19:16 20:50 20:54 RBC Hgb Hct Lymph % (Auto) Seg Neutrophils % Seg Neutrophils # VBG pH 7.218 L Sodium 125 L Potassium 5.3 H Chloride 90.2 L Carbon Dioxide 10 L Creatinine Glucose 530 H* POC Glucose 413 H Hemoglobin A1c Urine WBC (Auto) 11/10/18 11/10/18 11/11/18 22:53 23:25 00:18 RBC Hgb Hct Lymph % (Auto) Seg Neutrophils % Seg Neutrophils # VBG pH Sodium 130 L Potassium Chloride Carbon Dioxide 12 L Creatinine Glucose 330 H POC Glucose 310 H 202 H Hemoglobin A1c Urine WBC (Auto) 11/11/18 11/11/18 11/11/18 01:05 01:06 02:04 RBC Hgb Hct Lymph % (Auto) Seg Neutrophils % Seg Neutrophils # VBG pH Sodium 132 L Potassium Chloride Carbon Dioxide 11 L Creatinine 0.6 L Glucose 196 H POC Glucose 188 H Hemoglobin A1c Urine WBC (Auto) 56.0 H 11/11/18 11/11/18 11/11/18 02:10 03:01 04:16 RBC Hgb Hct Lymph % (Auto) Seg Neutrophils % Seg Neutrophils # VBG pH Sodium 130 L Potassium Chloride Carbon Dioxide 12 L Creatinine 0.6 L Glucose 194 H POC Glucose 162 H 173 H Hemoglobin A1c Urine WBC (Auto) 11/11/18 11/11/18 11/11/18 05:48 06:04 08:10 RBC Hgb Hct Lymph % (Auto) Seg Neutrophils % Seg Neutrophils # VBG pH Sodium 131 L Potassium Chloride Carbon Dioxide 12 L Creatinine 0.5 L Glucose 219 H POC Glucose 200 H 177 H Hemoglobin A1c Urine WBC (Auto) 11/11/18 11/11/18 11/11/18 09:18 10:47 16:21 RBC Hgb Hct Lymph % (Auto) Seg Neutrophils % Seg Neutrophils # VBG pH Sodium Potassium Chloride Carbon Dioxide Creatinine Glucose POC Glucose 198 H 134 H 370 H Hemoglobin A1c Urine WBC (Auto) 11/11/18 11/12/18 11/12/18 22:48 00:54 05:40 RBC Hgb Hct Lymph % (Auto) Seg Neutrophils % Seg Neutrophils # VBG pH Sodium 136 L Potassium Chloride Carbon Dioxide 17 L Creatinine 0.5 L Glucose 292 H POC Glucose 339 H Hemoglobin A1c 13.1 H Urine WBC (Auto) 11/12/18 11/12/18 07:37 10:53 RBC Hgb Hct Lymph % (Auto) Seg Neutrophils % Seg Neutrophils # VBG pH Sodium Potassium Chloride Carbon Dioxide Creatinine Glucose POC Glucose 265 H 332 H Hemoglobin A1c Urine WBC (Auto)
[2018-11-12] MEDS ORDERED: MORPHINE IV ONE (14:54)
[2018-11-12] MEDS ORDERED: LANTUS SUB-Q SCH ×2 (22:00)
[2018-11-12] MEDS: PERCOCET 5/325 PO PRN (22:12)
[2018-11-13] MEDS: PERCOCET 5/325 PO PRN ×3 (06:29→22:08)
[2018-11-13] MEDS: TYLENOL PO PRN ×2 (06:30→12:18)
[2018-11-13] MEDS: HumaLOG SUB-Q SCH ×7 (08:51→22:05)
[2018-11-13] MEDS: LEVAQUIN PO SCH (10:13)
[2018-11-13] MEDS: HEPARIN SUB-Q SCH ×2 (10:13→22:05)
[2018-11-13] MEDS ORDERED: LANTUS SUB-Q SCH ×2 (12:04→22:00)
[2018-11-13] MEDS ORDERED: HumaLOG SUB-Q SCH (12:04)
--- NOTE | 2018-11-13 12:09 | Progress Note ---
Assessment and Plan Assessment and plan: 38F with pmh of dm who pw Polyuria, polydipsia. She has not had insulin in over 6 months because her insurance did not cover it per patient. Past medical history; diabetes, asthma morbid obesity Diagnoses Diabetic ketoacidosis Uncontrolled diabetes, A1c 13 Urinary tract infection, due to beta hemolytic group B strep Sepsis Fever today Plan still hyperglycemic, optimize subcutaneous insulin today Continue IV fluids Antibiotics x 3 days for UTI she is more hyperglycemic today and and spiking fever. will obtain CXR blood cultures and increase insulin dose have given her [employer] formulary, and she will be dc on general glargine and lispro DVT prophylaxis early ambulation History Interval history: Review of systems Constitutional: low grade fever, no malaise, no joint pains CVS: No chest pain, no orthopnea, no dyspnea on exertion, no pedal edema GI: No abdominal pain, no diarrhea, no vomiting, no constipation Respiratory: No shortness of breath, no wheezing, no coughing Hospitalist Physical - Physical exam Narrative exam: General.: Appears well, no distress, nontoxic HEENT: Moist mucous membranes, extraocular muscles intact, no lymphadenopathy Neck: supple Cardiac: S1-S2 heard Lungs: clear to auscultation bilaterally Abdomen: soft , nontender, nondistended, bowel sounds positive Extremities: no edema clubbing or cyanosis Skin: no rash or lesions Neurologic: no gross focal deficits Psych: appropriate behavior, appropriate mood, corporative, judgment intact - Constitutional Vitals: Temp Pulse Resp BP Pulse Ox 98.0 F 112 H 20 124/72 97 11/13/18 11:50 11/13/18 11:50 11/13/18 11:50 11/13/18 11:50 11/13/18 11:50 Results - Labs CBC & Chem 7: 11/10/18 19:16 11/12/18 05:40 Labs: Laboratory Last Values WBC 10.8 K/mm3 (4.5-11.0) 11/10/18 19:16 RBC 5.30 M/mm3 (3.65-5.03) H 11/10/18 19:16 Hgb 15.2 gm/dl (10.1-14.3) H 11/10/18 19:16 Hct 47.1 % (30.3-42.9) H 11/10/18 19:16 MCV 89 fl (79-97) 11/10/18 19:16 MCH 29 pg (28-32) 11/10/18 19:16 MCHC 32 % (30-34) 11/10/18 19:16 RDW 14.5 % (13.2-15.2) 11/10/18 19:16 Plt Count 294 K/mm3 (140-440) 11/10/18 19:16 Lymph % (Auto) 11.6 % (13.4-35.0) L 11/10/18 19:16 [place] % (Auto) 7.3 % (0.0-7.3) 11/10/18 19:16 Eos % (Auto) 0.1 % (0.0-4.3) 11/10/18 19:16 Baso % (Auto) 0.7 % (0.0-1.8) 11/10/18 19:16 Lymph # 1.3 K/mm3 (1.2-5.4) 11/10/18 19:16 [place] # 0.8 K/mm3 (0.0-0.8) 11/10/18 19:16 Eos # 0.0 K/mm3 (0.0-0.4) 11/10/18 19:16 Baso # 0.1 K/mm3 (0.0-0.1) 11/10/18 19:16 Seg Neutrophils % 80.3 % (40.0-70.0) H 11/10/18 19:16 Seg Neutrophils # 8.7 K/mm3 (1.8-7.7) H 11/10/18 19:16 VBG pH 7.218 (7.320-7.420) L 11/10/18 19:16 Sodium 136 mmol/L (137-145) L 11/12/18 05:40 Potassium 4.3 mmol/L (3.6-5.0) 11/12/18 05:40 Chloride 105.4 mmol/L (98-107) 11/12/18 05:40 Carbon Dioxide 17 mmol/L (22-30) L 11/12/18 05:40 Anion Gap 18 mmol/L 11/12/18 05:40 BUN 8 mg/dL (7-17) 11/12/18 05:40 Creatinine 0.5 mg/dL (0.7-1.2) L 11/12/18 05:40 Estimated GFR > 60 ml/min 11/12/18 05:40 BUN/Creatinine Ratio 16 % 11/12/18 05:40 Glucose 292 mg/dL (65-100) H 11/12/18 05:40 POC Glucose 371 (70-105) H 11/13/18 08:02 Hemoglobin A1c 13.1 % (4-6) H 11/12/18 00:54 Calcium 8.7 mg/dL (8.4-10.2) 11/12/18 05:40 Phosphorus 2.90 mg/dL (2.5-4.5) 11/10/18 20:54 Magnesium 1.90 mg/dL (1.7-2.3) 11/10/18 20:54 Urine Color Yellow (Yellow) 11/11/18 02:04 Urine Turbidity Slightly-cloudy (Clear) 11/11/18 02:04 Urine pH 5.0 (5.0-7.0) 11/11/18 02:04 Ur Specific Ward 1.024 (1.003-1.030) 11/11/18 02:04 Urine Protein 30 mg/dl mg/dL (Negative) 11/11/18 02:04 Urine Glucose (UA) >=500 mg/dL (Negative) 11/11/18 02:04 Urine Ketones 80 mg/dL (Negative) 11/11/18 02:04 Urine Blood Sm (Negative) 11/11/18 02:04 Urine Nitrite Neg (Negative) 11/11/18 02:04 Urine Bilirubin Neg (Negative) 11/11/18 02:04 Urine Urobilinogen < 2.0 mg/dL (<2.0) 11/11/18 02:04 Ur Leukocyte Esterase Lg (Negative) 11/11/18 02:04 Urine WBC (Auto) 56.0 /HPF (0.0-6.0) H 11/11/18 02:04 Urine RBC (Auto) 26.0 /HPF (0.0-6.0) 11/11/18 02:04 U Epithel Cells (Auto) 4.0 /HPF (0-13.0) 11/11/18 02:04 Urine Bacteria (Auto) 1+ /HPF (Negative) 11/11/18 02:04 Hyaline Casts 1 /LPF 11/11/18 02:04 Urine Mucus Few /HPF 11/11/18 02:04 Urine Yeast (Budding) 1+ /HPF 11/11/18 02:04 Nutrition/Malnutrition Assess - Dietary Evaluation Nutrition/Malnutrition Findings: Nutrition Notes Start: 11/12/18 14:00 Freq: Status: Active Protocol: Document 11/12/18 14:00 RM (Rec: 11/12/18 14:23 RM [id number]) Nutrition Notes Need for Assessment generated from: chicken fancier MST Initial or Follow up Assessment Current Diagnosis Acute Kidney Injury Diabetes Sepsis Other Pertinent Diagnosis Asthma, UTI, DKA Current Diet Consistent CHO Labs/Tests A1c 13 Pertinent Medications Reviewed Height 5 ft 2 in Weight 146.4 kg Usual Body Weight 154 kg [place] Body Weight (kg) 50.00 BMI 59.0 Weight change and time frame Recorded wt change likely d/t pt inaccurate estimate Subjective/Other Information Pt screened for malnutrition and skin risk. Bharat 20 points. 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 Stated she is forcing herself to eat most of the facility meals. Admitted to N/V but stated she has been able to keep down most of what she has eaten. Admitted to constipation. Stated UBW was 339 lbs Sunday. Noted A1c of 13. Pt stated that she had not previously received DM diet education. Reviewed carbohydrate counting . Gave handout. 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 No Is Patient Ambulatory and/or Out of Bed Yes REE-([facility]-ambulatory/OOB) [ 2713.425 [id number]] Kcal/Kg value to use for calculation 15 Approximate Energy Requirements Using 2196 kcal/Kg Calculation Used for Recommendations Kcal/kg Additional Notes Protein Needs: 75-85g (1.5-1. 7g/kg, 50kg IBW) Fluid Needs: 1 ml/kcal Nutrition Intervention Change Diet Order: Continue current Add Supplement/Snack (indicate name/kcal Glucerna Butter Pecan 1 daily /protein ) Provides kCal: 220 Provides Protein (gm) 10 Teaching Recipient Patient Learning Readiness Good Teaching Methods Discussion Handout Response to Teaching Verbalize understanding Education Handouts Provided Carbohydrate Counting for People with Diabetes Barriers to Learning No Barriers RD phone number provided Yes Patient aware of follow up options Yes Goal #1 Meet at least 75% of calorie and protein needs Goal #2 Stable intakes Anticipated Discharge Needs: Consistent CHO diet Follow-Up By: 11/14/18 Additional Comments Follow for PO and ONS intakes
--- NOTE | 2018-11-13 14:50 | XRay Report ---
ROUTINE CHEST, TWO VIEWS: HISTORY: Fever. The trachea, heart, mediastinal contour, lung mckeon and bony thorax are unremarkable. No change since 11/10/18. IMPRESSION: Unremarkable chest x-ray.
[2018-11-13 17:44] LABS: Bacteria,Urine 1+ /HPF (Negative); Bilirubin,Urine NEG (Negative); Blood,Urine LG (Negative); Color,Urine Yellow (Yellow); Urobilinogen,Urine < 2.0 mg/dL (<2.0)
[2018-11-13 17:47] LABS: RBC,Urine > 182.0 /HPF (0.0-6.0)
--- NOTE | 2018-11-13 19:31 | Progress Note ---
Assessment and Plan Patient alert, awake. Resting on room air. O2 saturation 98%. No complaint of chest pain, shortness of breath or cough.Running low grade temp.Noacute respiratory distress.Chest xray reported unremarkable. - Patient Problems (1) DKA (diabetic ketoacidoses) Current Visit: Yes Status: Acute Plan to address problem: Continue I/V fluids and Insulin. Management as per primary care. (2) ARF (acute renal failure) Current Visit: No Status: Acute Plan to address problem: Management as per nephrology. (3) Dehydration Current Visit: No Status: Acute Plan to address problem: Continue I/V hydration. (4) Morbid obesity Current Visit: No Status: Chronic Plan to address problem: Recommend to loose weight. Explained sleep hygeine. Recommended CPAP. Patient can not use mask. Recommend to repeat sleep study. Patients sleep study many years ago. (5) Smoking greater than 10 pack years Current Visit: Yes Status: Acute Plan to address problem: Counselled to stop smoking. Subjective Date of service: 11/13/18 Interval history: Patient alert, awake. Resting on room air. O2 saturation 98%. No complaint of chest pain, shortness of breath or cough.Running low grade temp.Noacute respiratory distress.Chest xray reported unremarkable. Objective Vital Signs - 12hr 11/13/18 11/13/18 11/13/18 08:26 11:50 16:48 Temperature 98.5 F 98.0 F 99.4 F Pulse Rate 112 H 109 H Respiratory 20 21 Rate Blood Pressure 124/72 107/60 O2 Sat by Pulse 97 98 Oximetry Constitutional: no acute distress, alert, other (Morbidley Obese.) Eyes: non-icteric ENT: oropharynx moist Neck: supple, no JVD Ascultation: Bilateral: diminished breath sounds (At the bases.) Cardiovascular: regular rate and rhythm Gastrointestinal: normoactive bowel sounds, soft, non-tender Integumentary: normal Extremities: no cyanosis, no edema Neurologic: normal mental status, non-focal exam, pupils equal and round, CN II- XII normal Psychiatric: mood appropriate CBC and BMP: 11/10/18 19:16 11/12/18 05:40 Abnormal lab findings: Abnormal Labs 11/10/18 11/10/18 11/10/18 19:13 19:16 19:16 RBC 5.30 H Hgb 15.2 H Hct 47.1 H Lymph % (Auto) 11.6 L Seg Neutrophils % 80.3 H Seg Neutrophils # 8.7 H VBG pH Sodium 125 L Potassium 5.1 H Chloride 89.8 L Carbon Dioxide 10 L Creatinine Glucose 573 H* POC Glucose 445 H Hemoglobin A1c Urine WBC (Auto) 11/10/18 11/10/18 11/10/18 19:16 20:50 20:54 RBC Hgb Hct Lymph % (Auto) Seg Neutrophils % Seg Neutrophils # VBG pH 7.218 L Sodium 125 L Potassium 5.3 H Chloride 90.2 L Carbon Dioxide 10 L Creatinine Glucose 530 H* POC Glucose 413 H Hemoglobin A1c Urine WBC (Auto) 11/10/18 11/10/18 11/11/18 22:53 23:25 00:18 RBC Hgb Hct Lymph % (Auto) Seg Neutrophils % Seg Neutrophils # VBG pH Sodium 130 L Potassium Chloride Carbon Dioxide 12 L Creatinine Glucose 330 H POC Glucose 310 H 202 H Hemoglobin A1c Urine WBC (Auto) 11/11/18 11/11/18 11/11/18 01:05 01:06 02:04 RBC Hgb Hct Lymph % (Auto) Seg Neutrophils % Seg Neutrophils # VBG pH Sodium 132 L Potassium Chloride Carbon Dioxide 11 L Creatinine 0.6 L Glucose 196 H POC Glucose 188 H Hemoglobin A1c Urine WBC (Auto) 56.0 H 11/11/18 11/11/18 11/11/18 02:10 03:01 04:16 RBC Hgb Hct Lymph % (Auto) Seg Neutrophils % Seg Neutrophils # VBG pH Sodium 130 L Potassium Chloride Carbon Dioxide 12 L Creatinine 0.6 L Glucose 194 H POC Glucose 162 H 173 H Hemoglobin A1c Urine WBC (Auto) 11/11/18 11/11/18 11/11/18 05:48 06:04 08:10 RBC Hgb Hct Lymph % (Auto) Seg Neutrophils % Seg Neutrophils # VBG pH Sodium 131 L Potassium Chloride Carbon Dioxide 12 L Creatinine 0.5 L Glucose 219 H POC Glucose 200 H 177 H Hemoglobin A1c Urine WBC (Auto) 11/11/18 11/11/18 11/11/18 09:18 10:47 16:21 RBC Hgb Hct Lymph % (Auto) Seg Neutrophils % Seg Neutrophils # VBG pH Sodium Potassium Chloride Carbon Dioxide Creatinine Glucose POC Glucose 198 H 134 H 370 H Hemoglobin A1c Urine WBC (Auto) 11/11/18 11/12/18 11/12/18 22:48 00:54 05:40 RBC Hgb Hct Lymph % (Auto) Seg Neutrophils % Seg Neutrophils # VBG pH Sodium 136 L Potassium Chloride Carbon Dioxide 17 L Creatinine 0.5 L Glucose 292 H POC Glucose 339 H Hemoglobin A1c 13.1 H Urine WBC (Auto) 11/12/18 11/12/18 11/12/18 07:37 10:53 16:40 RBC Hgb Hct Lymph % (Auto) Seg Neutrophils % Seg Neutrophils # VBG pH Sodium Potassium Chloride Carbon Dioxide Creatinine Glucose POC Glucose 265 H 332 H 316 H Hemoglobin A1c Urine WBC (Auto) 11/12/18 11/13/18 11/13/18 20:43 08:02 11:55 RBC Hgb Hct Lymph % (Auto) Seg Neutrophils % Seg Neutrophils # VBG pH Sodium Potassium Chloride Carbon Dioxide Creatinine Glucose POC Glucose 324 H 371 H 368 H Hemoglobin A1c Urine WBC (Auto) 11/13/18 11/13/18 16:54 17:15 RBC Hgb Hct Lymph % (Auto) Seg Neutrophils % Seg Neutrophils # VBG pH Sodium Potassium Chloride Carbon Dioxide Creatinine Glucose POC Glucose 297 H Hemoglobin A1c Urine WBC (Auto) 67.0 H Chest x-ray: report reviewed (Chest xray reported unremarkable.), image reviewed
--- NOTE | 2018-11-14 09:09 | Progress Note ---
Assessment and Plan Sepsis Morbidly obese Sleep apnea, untreated Tobacco abuse disorder/nicotine dependence Diabetic ketoacidosis Uncontrolled diabetes, A1c 13 Urinary tract infection, due to beta hemolytic group B strep -Continue all current care -Smoking cessation counselling done at the bedside -Weight loss and life style modifications discussed -Outpatient pulmonary follow up -Complete antibiotics course -Increase activity and ambulation -Diabetic education and counselling -Discharge planning Subjective Date of service: 11/14/18 Interval history: Follow up for: Morbid obesity, sleep apnea, tobacco abuse disorder, DKA Patient was seen and examined. 24 hour events reviewed. Vitals, labs, medications, chart and imaging reviewed. Complains of pain in her arm where her IV was removed. Denies any cough, no chest pain, no shortness of breath. States she is feeling much better Objective Vital Signs - 12hr 11/13/18 11/14/18 11/14/18 23:27 05:39 05:45 Temperature 99.8 F H 98.0 F Pulse Rate 127 H 112 H 64 Respiratory 20 20 18 Rate Blood Pressure 134/62 151/76 141/79 O2 Sat by Pulse 96 96 96 Oximetry Constitutional: no acute distress, alert, other (Morbidly Obese.) Eyes: non-icteric ENT: oropharynx moist Neck: supple, no JVD Effort: normal Ascultation: Bilateral: diminished breath sounds (At the bases.) Cardiovascular: regular rate and rhythm, other (S1,S2, no murmurs, gallops or rubs) Gastrointestinal: normoactive bowel sounds, soft, non-tender Integumentary: normal Extremities: no cyanosis, no edema Neurologic: normal mental status, non-focal exam, pupils equal and round, CN II- XII normal Psychiatric: mood appropriate, affect normal CBC and BMP: 11/10/18 19:16 11/12/18 05:40 Abnormal lab findings: Abnormal Labs 11/10/18 11/10/18 11/10/18 19:13 19:16 19:16 RBC 5.30 H Hgb 15.2 H Hct 47.1 H Lymph % (Auto) 11.6 L Seg Neutrophils % 80.3 H Seg Neutrophils # 8.7 H VBG pH Sodium 125 L Potassium 5.1 H Chloride 89.8 L Carbon Dioxide 10 L Creatinine Glucose 573 H* POC Glucose 445 H Hemoglobin A1c Urine WBC (Auto) 11/10/18 11/10/1811/10/19 19:16 20:50 20:54 RBC Hgb Hct Lymph % (Auto) Seg Neutrophils % Seg Neutrophils # VBG pH 7.218 L Sodium 125 L Potassium 5.3 H Chloride 90.2 L Carbon Dioxide 10 L Creatinine Glucose 530 H* POC Glucose 413 H Hemoglobin A1c Urine WBC (Auto) 11/10/18 11/10/18 11/11/18 22:53 23:25 00:18 RBC Hgb Hct Lymph % (Auto) Seg Neutrophils % Seg Neutrophils # VBG pH Sodium 130 L Potassium Chloride Carbon Dioxide 12 L Creatinine Glucose 330 H POC Glucose 310 H 202 H Hemoglobin A1c Urine WBC (Auto) 11/11/18 11/11/18 11/11/18 01:05 01:06 02:04 RBC Hgb Hct Lymph % (Auto) Seg Neutrophils % Seg Neutrophils # VBG pH Sodium 132 L Potassium Chloride Carbon Dioxide 11 L Creatinine 0.6 L Glucose 196 H POC Glucose 188 H Hemoglobin A1c Urine WBC (Auto) 56.0 H 11/11/18 11/11/18 11/11/18 02:10 03:01 04:16 RBC Hgb Hct Lymph % (Auto) Seg Neutrophils % Seg Neutrophils # VBG pH Sodium 130 L Potassium Chloride Carbon Dioxide 12 L Creatinine 0.6 L Glucose 194 H POC Glucose 162 H 173 H Hemoglobin A1c Urine WBC (Auto) 11/11/18 11/11/18 11/11/18 05:48 06:04 08:10 RBC Hgb Hct Lymph % (Auto) Seg Neutrophils % Seg Neutrophils # VBG pH Sodium 131 L Potassium Chloride Carbon Dioxide 12 L Creatinine 0.5 L Glucose 219 H POC Glucose 200 H 177 H Hemoglobin A1c Urine WBC (Auto) 11/11/18 11/11/18 11/11/18 09:18 10:47 16:21 RBC Hgb Hct Lymph % (Auto) Seg Neutrophils % Seg Neutrophils # VBG pH Sodium Potassium Chloride Carbon Dioxide Creatinine Glucose POC Glucose 198 H 134 H 370 H Hemoglobin A1c Urine WBC (Auto) 11/11/18 11/12/18 11/12/18 22:48 00:54 05:40 RBC Hgb Hct Lymph % (Auto) Seg Neutrophils % Seg Neutrophils # VBG pH Sodium 136 L Potassium Chloride Carbon Dioxide 17 L Creatinine 0.5 L Glucose 292 H POC Glucose 339 H Hemoglobin A1c 13.1 H Urine WBC (Auto) 11/12/18 11/12/18 11/12/18 07:37 10:53 16:40 RBC Hgb Hct Lymph % (Auto) Seg Neutrophils % Seg Neutrophils # VBG pH Sodium Potassium Chloride Carbon Dioxide Creatinine Glucose POC Glucose 265 H 332 H 316 H Hemoglobin A1c Urine WBC (Auto) 11/12/18 11/13/18 11/13/18 20:43 08:02 11:55 RBC Hgb Hct Lymph % (Auto) Seg Neutrophils % Seg Neutrophils # VBG pH Sodium Potassium Chloride Carbon Dioxide Creatinine Glucose POC Glucose 324 H 371 H 368 H Hemoglobin A1c Urine WBC (Auto) 11/13/18 11/13/18 11/13/18 16:54 17:15 21:48 RBC Hgb Hct Lymph % (Auto) Seg Neutrophils % Seg Neutrophils # VBG pH Sodium Potassium Chloride Carbon Dioxide Creatinine Glucose POC Glucose 297 H 288 H Hemoglobin A1c Urine WBC (Auto) 67.0 H Allied health notes reviewed: nursing
[2018-11-14] MEDS: HumaLOG SUB-Q SCH ×6 (09:31→17:37)
[2018-11-14] MEDS: HEPARIN SUB-Q SCH (09:32)
[2018-11-14] MEDS: PERCOCET 5/325 PO PRN (13:25)
--- NOTE | 2018-11-14 16:22 | Discharge Summary ---
Providers - Providers Date of Admission: 11/10/18 23:00 Attending physician: JOSE ALANIS MD 11/10/18 23:11 Consult to Physician [CONS] Routine Comment: Consulting Provider: KYLE SPEARS Physician Instructions: Reason For Exam: ICU ADMISSION FOR DKA ON INSULIN DRIP 11/11/18 13:08 Consult to Case Management [CONS] Routine Services Needed at Discharge: Other Notified:: cm Comment:: Needs help with her rx coverage Primary care physician: VERNON ALEMAN Hospitalization Condition: Stable Hospital course: 38F with pmh of dm who pw Polyuria, polydipsia. She has not had insulin in over 6 months because her insurance did not cover it per patient. Past medical history; diabetes, asthma morbid obesity The patient was unable to get any insulins, because [facility] formulary did not cover the ones given to her by her doctor. Therefore she has not taken any insulin for over 6 months. She presented with DKA, A1c 13. She received insulin drip and was transitioned to subcutaneous insulins, she was educated about diet -She was given a copy of the insulins, on the [facility] medication formulary -She received IV fluids, and antibiotics for UTI -I recommended that she join a weight loss program, she will see her PCP for referral Diagnoses Diabetic ketoacidosis Uncontrolled diabetes, A1c 13 Urinary tract infection, due to beta hemolytic group B strep Sepsis Fever today Morbid obesity Disposition: DC-01 TO HOME OR SELFCARE Time spent for discharge: 33 mins Core Measure Documentation - Palliative Care Palliative Care/ Comfort Measures: Not Applicable - Core Measures Any of the following diagnoses?: none Exam - Constitutional Vitals: Temp Pulse Resp BP Pulse Ox 100.1 F H 107 H 24 128/69 95 11/14/18 11:52 11/14/18 11:52 11/14/18 11:52 11/14/18 11:52 11/14/18 11:52 General appearance: Present: no acute distress, well-nourished - EENT Eyes: Present: PERRL ENT: hearing intact, clear oral mucosa - Neck Neck: Present: supple, normal ROM - Respiratory Respiratory effort: normal Respiratory: bilateral: CTA - Cardiovascular Heart Sounds: Present: S1 & S2. Absent: rub, click - Extremities Extremities: pulses symmetrical, No edema Peripheral Pulses: within normal limits - Abdominal General gastrointestinal: Present: soft, non-tender, non-distended, normal bowel sounds Female genitourinary: Present: normal - Integumentary Integumentary: Present: clear, warm, dry - Musculoskeletal Musculoskeletal: gait normal, strength equal bilaterally - Psychiatric Psychiatric: appropriate mood/affect, intact judgment & insight - Neurologic Neurologic: CNII-XII intact, moves all extremities Plan Follow up with: VERNON ALEMAN [Primary Care Provider] - 7 Days Prescriptions: Acetaminophen/Codeine [Tylenol /Codeine # 3 tab] 1 tab PO Q6H PRN #7 tab PRN Reason: Pain, Moderate (4-6) Insulin Glargine,Hum.rec.anlog [Basaglar Kwikpen U-100] 45 unit SQ HS #5 insuln .pen RX: Insulin Lispro [Admelog] 15 unit SQ AC #1 vial Sulfamethoxazole/Trimethoprim [Bactrim DS TAB] 1 each PO BID #14 tablet
[2018-11-14 18:24] VITALS: BP 108/71
== END 2018-11-14 20:00 | disposition home or self-care (01) | DRG 871 ==
LOC: ED 19:01 → CC1 23:00 → 3A 11-11 10:32
PROVIDERS: ADMIT Internal Medicine; ATTEND Internal Medicine
DX: A41.9 Sepsis, unspecified organism (principal); E11.10 Type 2 diabetes mellitus with ketoacidosis without coma; N39.0 Urinary tract infection, site not specified; J45.909 Unspecified asthma, uncomplicated; Z68.43 Body mass index [BMI] 50.0-59.9, adult; E66.01 Morbid (severe) obesity due to excess calories; F17.210 Nicotine dependence, cigarettes, uncomplicated; N17.9 Acute kidney failure, unspecified; E86.0 Dehydration; G47.30 Sleep apnea, unspecified
CPT/HCPCS: 36415; 71045; 71046; 80048; 81001; 82805; 82962; 83036; 83735; 84100; 85025; 87040; 87086; 87116; 96361; 96365; 96372; 96375; 99406; G0378; J1644; J1815; J1956; J2270; J2405; J7030

== ENCOUNTER 2019-12-09 11:48 | Emergency (ER) | payer MEDICAID ==
[2019-12-09 15:18] VITALS: BP 130/77
--- NOTE | 2019-12-09 15:23 | Event Note ---
ED Screening Note Date of service: 12/09/19 Time: 15:21 ED Screening Note: 39 y o female with PMH of DM presents with abd pain x 2 days admits n/v/d no dysuria LMP : last week This initial assessment/diagnostic orders/clinical plan/treatment(s) is/are subject to change based on patients health status, clinical progression and re- assessment by fellow clinical providers in the ED. Further treatment and workup at subsequent clinical providers discretion. Patient/guardian urged not to elope from the ED as their condition may be serious if not clinically assessed and managed. Initial orders include: labs, ua ct abd
[2019-12-09 16:18] LABS: Basophils % (Auto) 0.6 % (0.0-1.8); Eosinophils # (Auto) 0.2 K/mm3 (0.0-0.4); Eosinophils % (Auto) 2.6 % (0.0-4.3); Hematocrit 37.8 % (30.3-42.9); Hemoglobin 12.2 gm/dl (10.1-14.3); Lymphocytes # (Auto) 2.1 K/mm3 (1.2-5.4); Lymphocytes % (Auto) 25.7 % (13.4-35.0); Mean Corpuscular HGB Conc 32 % (30-34); Mean Corpuscular Volume 89 fl (79-97); Monocytes # (Auto) 0.6 K/mm3 (0.0-0.8); Monocytes % (Auto) 7.4 % (0.0-7.3); Platelet Count 354 K/mm3 (140-440); Red Blood Count 4.26 M/mm3 (3.65-5.03); Red Cell Distribution Width 15.1 % (13.2-15.2)
[2019-12-09 16:35] LABS: Alanine Aminotransferase 11 units/L (7-56); Albumin 3.7 g/dL (3.9-5); BUN/Creatinine Ratio 20; Blood Urea Nitrogen 10 mg/dL (7-17); Calcium 9.4 mg/dL (8.4-10.2); Hemolysis Index 4
--- NOTE | 2019-12-09 18:13 | Cat Scan Report ---
CT ABDOMEN AND PELVIS WITHOUT CONTRAST INDICATION: abd pa. TECHNIQUE: Axial CT images were obtained through the abdomen and pelvis without IV contrast. All CT scans at [facility] location are performed using CT dose reduction for ALARA by means of automated exposure control. COMPARISON: CT abdomen and pelvis 09/08/2017 FINDINGS: LOWER CHEST: No significant abnormality. LIVER: No significant abnormality. GALLBLADDER: No significant abnormality. BILE DUCTS: No significant abnormality. PANCREAS: No significant abnormality. SPLEEN: No significant abnormality. ADRENALS: No significant abnormality. RIGHT KIDNEY and URETER: No significant abnormality. LEFT KIDNEY and URETER: No significant abnormality. STOMACH and SMALL BOWEL: Postsurgical changes anterior mid small bowel, unchanged with suture line ag ain noted. No bowel obstruction. COLON: No significant abnormality. APPENDIX: No significant abnormality. PERITONEUM: No free fluid. No free air. No fluid collection. Small fat-containing umbilical hernia, u nchanged LYMPH NODES: No significant adenopathy. AORTA and ARTERIES: No significant abnormality. IVC and VEINS: No significant abnormality. URINARY BLADDER: No significant abnormality. REPRODUCTIVE ORGANS: No significant abnormality. ADDITIONAL FINDINGS: None. SKELETAL SYSTEM: No significant abnormality. IMPRESSION: 1. No significant abnormality. 2. Small stable fat-containing umbilical hernia, unchanged. Signer Name: Mc Chavez MD Signed: 12/09/2019 6:08 PM Workstation Name: [id number]
[2019-12-09 18:37] LABS: Bilirubin,Urine NEG (Negative); Blood,Urine NEG (Negative); Color,Urine Yellow (Yellow); Mucus,Urine FEW /HPF; Protein,Urine <15 mg/dL mg/dL (Negative); Urobilinogen,Urine < 2.0 mg/dL (<2.0)
[2019-12-09] MEDS ORDERED: predniSONE 20 MG TAB PO ONE (19:11)
[2019-12-09] MEDS ORDERED: METOCLOPRAMIDE 10 MG TAB PO ONE (19:11)
[2019-12-09] MEDS ORDERED: IBUPROFEN 800 MG TAB PO ONE ×2 (19:11→19:15)
[2019-12-09] MEDS ORDERED: diphenhydrAMINE 25 MG CAP PO ONE (19:11)
[2019-12-09] MEDS ORDERED: LIDOCAINE VISCOUS 2% 15 ML ORAL LIQD PO ONE (19:15)
[2019-12-09] MEDS ORDERED: ALUM-MAG HYDROXIDE-SIMETHICONE 200-200-20MG/5ML ORAL LIQD 30 ML PO ONE (19:15)
--- NOTE | 2019-12-09 21:00 | Emergency Department Report ---
ED Abdominal Pain HPI - General Chief Complaint: Abdominal Pain Stated Complaint: STOMACH PAIN, GROIN AND DIZZY Time Seen by Provider: 12/09/19 18:24 Source: patient Mode of arrival: Ambulatory Limitations: No Limitations - History of Present Illness Initial Comments: Ms Foss is a 39 -[place] female with history of obesity, hypertension, DMII and GERD. She presents for right flank pain radiating to lower abdominal and suprapubic x3 days. She has secondary complaint of epigastric burning that is exacerbated after eating. Symptoms are relieved by sitting upright. There is been no nausea vomiting, chest pain, shortness of breath, dizziness, no diaphoresis. Patient is tolerating p.o. intake, she appears well in no acute distress. Patient states she is not taking a PPI or H2 mal. There is urinary frequency and dysuria no hematuria. Onset/Timin -: hour(s), days(s) Location: suprapubic, R flank Radiation: suprapubic Migration to: suprapubic Severity: moderate Severity scale (0 -10): 3 Quality: aching Consistency: intermittent Improves With: nothing Worsens With: nothing, movement Associated Symptoms: dysuria. denies: nausea, vomiting, diarrhea, fever, chills, constipation, hematemesis, melena, hematuria - Related Data LMP Date: 11/24/19 Previous Rx's Medication Instructions Recorded Last Taken Type Acetaminophen/Codeine [Tylenol 1 tab PO Q6H PRN #7 tab 11/14/18 Unknown Rx /Codeine # 3 tab] Insulin Glargine,Hum.rec.anlog 45 unit SQ HS #5 insuln.pen 11/14/18 Unknown Rx [Basaglar Kwikpen U-100] Insulin Lispro [Admelog] 15 unit SQ AC #1 vial 11/14/18 Unknown Rx Sulfamethoxazole/Trimethoprim 1 each PO BID #14 tablet 11/14/18 Unknown Rx [Bactrim DS TAB] Famotidine [Pepcid] 20 mg PO BID #30 tablet 12/09/19 Unknown Rx Naproxen 500 mg PO BID PRN #30 tablet 12/09/19 Unknown Rx Nitrofurantoin Sherman/M-Cryst 100 mg PO BID 7 Days #14 capsule 12/09/19 Unknown Rx [Macrobid CAP] Allergies Allergy/AdvReac Type Severity Reaction Status Date / Time lactose Allergy Unknown Unknown Verified 07/29/15 17:59 penicillin G Allergy Dizziness Verified 09/27/15 15:55 clarithromycin [From Biaxin] AdvReac Shortness Verified 07/29/15 17:59 of Breath ED Review of Systems ROS: Stated complaint: STOMACH PAIN, GROIN AND DIZZY Other details as noted in HPI Constitutional: denies: chills, fever Eyes: denies: eye pain, eye discharge, vision change ENT: denies: ear pain, throat pain Respiratory: denies: cough, shortness of breath, wheezing Cardiovascular: denies: chest pain, palpitations Endocrine: no symptoms reported Gastrointestinal: denies: abdominal pain, nausea, vomiting, diarrhea Genitourinary: urgency, dysuria, frequency. denies: hematuria, discharge, abnormal menses, dyspareunia Musculoskeletal: denies: back pain, joint swelling, arthralgia Skin: denies: rash, lesions Neurological: denies: headache, weakness, paresthesias Psychiatric: denies: anxiety, depression Hematological/Lymphatic: denies: easy bleeding, easy bruising ED Past Medical Hx - Past Medical History Previous Medical History?: Yes Hx Congestive Heart Failure: No Hx Diabetes: Yes Hx Deep Vein Thrombosis: No Hx Arthritis: No Hx Asthma: Yes Hx COPD: No Hx HIV: No Additional medical history: MORBID OBESITY - Surgical History Past Surgical History?: Yes Hx Pacemaker: No Hx Internal Defibrillator: No Additional Surgical History: X2. BOWEL REPAIR - Social History Smoking Status: Current Every Day Smoker Substance Use Type: None - Medications Home Medications: Home Medications Medication Instructions Recorded Confirmed Last Taken Type Acetaminophen/Codeine [Tylenol 1 tab PO Q6H PRN #7 tab 11/14/18 Unknown Rx /Codeine # 3 tab] Insulin Glargine,Hum.rec.anlog 45 unit SQ HS #5 insuln.pen 11/14/18 Unknown Rx [Basaglar Kwikpen U-100] Insulin Lispro [Admelog] 15 unit SQ AC #1 vial 11/14/18 Unknown Rx Sulfamethoxazole/Trimethoprim 1 each PO BID #14 tablet 11/14/18 Unknown Rx [Bactrim DS TAB] Famotidine [Pepcid] 20 mg PO BID #30 tablet 12/09/19 Unknown Rx Naproxen 500 mg PO BID PRN #30 tablet 12/09/19 Unknown Rx Nitrofurantoin Sherman/M-Cryst 100 mg PO BID 7 Days #14 capsule 12/09/19 Unknown Rx [Macrobid CAP] ED Physical Exam - General Limitations: No Limitations General appearance: alert, in no apparent distress - Head Head exam: Present: atraumatic, normocephalic - Eye Eye exam: Present: normal appearance, PERRL, EOMI Pupils: Present: normal accommodation - ENT ENT exam: Present: mucous membranes moist - Neck Neck exam: Present: normal inspection, full ROM. Absent: lymphadenopathy - Respiratory Respiratory exam: Present: normal lung sounds bilaterally. Absent: respiratory distress, wheezes, stridor, chest wall tenderness - Cardiovascular Cardiovascular Exam: Present: regular rate, normal rhythm, normal heart sounds. Absent: systolic murmur, diastolic murmur, rubs, gallop - GI/Abdominal GI/Abdominal exam: Present: soft, tenderness (epigastric ), normal bowel sounds. Absent: distended, guarding, rebound, rigid, bruit, hernia - Rectal Rectal exam: Present: deferred - Extremities Exam Extremities exam: Present: normal inspection, full ROM. Absent: tenderness - Back Exam Back exam: Present: normal inspection, full ROM. Absent: tenderness, CVA t enderness (R), muscle spasm, vertebral tenderness - Neurological Exam Neurological exam: Present: alert, oriented X3, CN II-XII intact, normal gait, reflexes normal. Absent: motor sensory deficit - Psychiatric Psychiatric exam: Present: normal affect, normal mood - Skin Skin exam: Present: warm, dry, intact, normal color. Absent: rash ED Course Vital Signs 12/09/19 12/09/19 12:28 15:18 Temperature 98.7 F 98.7 F Pulse Rate 92 H 93 H Respiratory 18 18 Rate Blood Pressure 130/77 130/77 O2 Sat by Pulse 100 100 Oximetry ED Medical Decision Making - Lab Data Result diagrams: 12/09/19 15:25 12/09/19 15:25 Labs 12/09/19 12/09/19 12/09/19 12:42 15:25 15:25 WBC 8.3 RBC 4.26 Hgb 12.2 Hct 37.8 MCV 89 MCH 29 MCHC 32 RDW 15.1 Plt Count 354 Lymph % (Auto) 25.7 Sherman % (Auto) 7.4 H Eos % (Auto) 2.6 Baso % (Auto) 0.6 Lymph # 2.1 Sherman # 0.6 Eos # 0.2 Baso # 0.0 Seg Neutrophils % 63.7 Seg Neutrophils # 5.3 Sodium 140 Potassium 4.2 Chloride 101.6 Carbon Dioxide 25 Anion Gap 18 BUN 10 Creatinine 0.5 L Estimated GFR > 60 BUN/Creatinine Ratio 20 Glucose 136 H POC Glucose 139 H Calcium 9.4 Total Bilirubin 0.20 AST 10 ALT 11 Alkaline Phosphatase 80 Total Protein 7.5 Albumin 3.7 L Albumin/Globulin Ratio 1.0 HCG, Qual Urine Color Urine Turbidity Urine pH Ur Specific [place] Urine Protein Urine Glucose (UA) Urine Ketones Urine Blood Urine Nitrite Urine Bilirubin Urine Urobilinogen Ur Leukocyte Esterase Urine WBC (Auto) Urine RBC (Auto) U Epithel Cells (Auto) Urine Mucus 12/09/19 12/09/19 15:25 18:13 WBC RBC Hgb Hct MCV MCH MCHC RDW Plt Count Lymph % (Auto) Sherman % (Auto) Eos % (Auto) Baso % (Auto) Lymph # Sherman # Eos # Baso # Seg Neutrophils % Seg Neutrophils # Sodium Potassium Chloride Carbon Dioxide Anion Gap BUN Creatinine Estimated GFR BUN/Creatinine Ratio Glucose POC Glucose Calcium Total Bilirubin AST ALT Alkaline Phosphatase Total Protein Albumin Albumin/Globulin Ratio HCG, Qual Negative Urine Color Yellow Urine Turbidity Slightly-cloudy Urine pH 6.0 Ur Specific [place] 1.020 Urine Protein <15 mg/dl Urine Glucose (UA) Neg Urine Ketones Neg Urine Blood Neg Urine Nitrite Neg Urine Bilirubin Neg Urine Urobilinogen < 2.0 Ur Leukocyte Esterase Neg Urine WBC (Auto) 10.0 H Urine RBC (Auto) 1.0 U Epithel Cells (Auto) 6.0 Urine Mucus Few - Medical Decision Making UA is positive for white cells bacteria. plan treat for UTI Macrobid ibuprofen. patient will follow-up with PCP in 2 to 3 days. she will also continue to hydrate as directed. Patient verbalized agreement and understanding with discharge plan. she will be DC'd to home in stable condition at this time. Critical care attestation.: If time is entered above; I have spent that time in minutes in the direct care of this critically ill patient, excluding procedure time. ED Disposition Clinical Impression: GERD (gastroesophageal reflux disease) Qualifiers: Esophagitis presence: without esophagitis Qualified Code(s): K21.9 - Gastro- esophageal reflux disease without esophagitis UTI (urinary tract infection) Qualifiers: Urinary tract infection type: acute cystitis Hematuria presence: without h ematuria Qualified Code(s): N30.00 - Acute cystitis without hematuria Disposition: TO HOME OR SELFCARE Is pt being admited?: No Does the pt Need Aspirin: No Condition: Stable Instructions: Gastroesophageal Reflux Disease (ED), Urinary Tract Infection in Women (ED) Prescriptions: Nitrofurantoin Sherman/M-Cryst [Macrobid CAP] 100 mg PO BID 7 Days #14 capsule Naproxen 500 mg PO BID PRN #30 tablet PRN Reason: pain Famotidine [Pepcid] 20 mg PO BID #30 tablet Referrals: VERNON ALEMAN [Primary Care Provider] - 3-5 Days Forms: Work/School Release Form(ED) Time of Disposition: 20:56
== END 2019-12-09 21:17 | disposition home or self-care (01) ==
LOC: ED 11:48
DX: K21.9 Gastro-esophageal reflux disease without esophagitis (principal); N39.0 Urinary tract infection, site not specified; I10 Essential (primary) hypertension; E11.9 Type 2 diabetes mellitus without complications; J45.909 Unspecified asthma, uncomplicated; F17.200 Nicotine dependence, unspecified, uncomplicated; E66.01 Morbid (severe) obesity due to excess calories; Z68.44 Body mass index [BMI] 60.0-69.9, adult; Z98.890 Other specified postprocedural states; Z79.899 Other long term (current) drug therapy; Z79.4 Long term (current) use of insulin; Z88.0 Allergy status to penicillin; Z88.8 Allergy status to other drugs, medicaments and biological substances
CPT/HCPCS: 36415; 74176; 80053; 81001; 82962; 84703; 85025; 87086

== ENCOUNTER 2020-07-19 11:12 | Emergency (ER) | payer MEDICAID ==
[2020-07-19 12:04] LABS: Hematocrit 39.9 % (30.3-42.9); Hemoglobin 12.9 gm/dl (10.1-14.3); Mean Corpuscular HGB Conc 32 % (30-34); Mean Corpuscular Volume 87 fl (79-97); Platelet Count 258 K/mm3 (140-440); Red Blood Count 4.59 M/mm3 (3.65-5.03); Red Cell Distribution Width 14.7 % (13.2-15.2)
[2020-07-19 12:27] LABS: Alanine Aminotransferase 10 units/L (7-56); Albumin 3.5 g/dL (3.9-5); Blood Urea Nitrogen 9 mg/dL (7-17); Calcium 9.8 mg/dL (8.4-10.2); Hemolysis Index 4
[2020-07-19 12:32] LABS: BUN/Creatinine Ratio 15
[2020-07-19 13:49] LABS: HCG Qualitative,Urine Negative (Negative)
[2020-07-19 14:08] LABS: Bilirubin,Urine NEG (Negative); Blood,Urine NEG (Negative); Color,Urine Yellow (Yellow); Mucus,Urine FEW /HPF; Urobilinogen,Urine < 2.0 mg/dL (<2.0)
[2020-07-19] MEDS ORDERED: ONDANSETRON 4 MG/2 ML INJ IV ONE (14:59)
[2020-07-19] MEDS ORDERED: SODIUM CHLORIDE 0.9% 1000 ML 1,000 ML IV ONE (14:59)
--- NOTE | 2020-07-19 15:04 | Emergency Department Report ---
ED Abdominal Pain HPI - General Chief Complaint: Hyperglycemia Stated Complaint: HYPREGLYCEMIA Time Seen by Provider: 07/19/20 14:51 Source: patient Mode of arrival: Ambulatory Limitations: No Limitations - History of Present Illness Initial Comments: Patient is 40 years old female with history of diabetes and a recent diagnosis of small bowel obstruction. Patient presented to the ER complaining of high blood sugar, nausea and vomiting. Patient stated that she was out of her insulin for a while but she started taking it 2 days ago. Patient stated that she went to [facility] ER and she was diagnosed with small bowel obstruction however she was discharged from the ER. Patient stated that since then she has been vomiting and not getting better. Patient denied any fever or chills. No chest pain, shortness of breath, cough. MD Complaint: abdominal pain -: days(s) Location: diffuse Radiation: none - Related Data Previous Rx's Medication Instructions Recorded Last Taken Type Acetaminophen/Codeine [Tylenol 1 tab PO Q6H PRN #7 tab 11/14/18 Unknown Rx /Codeine # 3 tab] Insulin Glargine,Hum.rec.anlog 45 unit SQ HS #5 insuln.pen 11/14/18 Unknown Rx [Basaglar Kwikpen U-100] Insulin Lispro [Admelog] 15 unit SQ AC #1 vial 11/14/18 Unknown Rx Sulfamethoxazole/Trimethoprim 1 each PO BID #14 tablet 11/14/18 Unknown Rx [Bactrim DS TAB] Famotidine [Pepcid] 20 mg PO BID #30 tablet 12/09/19 Unknown Rx Naproxen 500 mg PO BID PRN #30 tablet 12/09/19 Unknown Rx Nitrofurantoin Cocke/M-Cryst 100 mg PO BID 7 Days #14 capsule 12/09/19 Unknown Rx [Macrobid CAP] Allergies Allergy/AdvReac Type Severity Reaction Status Date / Time lactose Allergy Unknown Unknown Verified 07/29/15 17:59 penicillin G Allergy Dizziness Verified 09/27/15 15:55 clarithromycin [From Biaxin] AdvReac Shortness Verified 07/29/15 17:59 of Breath ED Review of Systems ROS: Stated complaint: HYPREGLYCEMIA Other details as noted in HPI Comment: All other systems reviewed and negative Constitutional: denies: chills, fever Cardiovascular: denies: chest pain, palpitations Gastrointestinal: abdominal pain, nausea, vomiting. denies: diarrhea, constipation, hematemesis, melena, hematochezia Musculoskeletal: denies: back pain Neurological: denies: headache, weakness, numbness, paresthesias, confusion ED Past Medical Hx - Past Medical History Previous Medical History?: Yes Hx Congestive Heart Failure: No Hx Diabetes: Yes Hx Deep Vein Thrombosis: No Hx Arthritis: No Hx Asthma: Yes Hx COPD: No Hx HIV: No Additional medical history: MORBID OBESITY - Surgical History Past Surgical History?: Yes Hx Pacemaker: No Hx Internal Defibrillator: No Additional Surgical History: X2. BOWEL REPAIR - Social History Smoking Status: Current Every Day Smoker Substance Use Type: None - Medications Home Medications: Home Medications Medication Instructions Recorded Confirmed Last Taken Type Acetaminophen/Codeine [Tylenol 1 tab PO Q6H PRN #7 tab 11/14/18 Unknown Rx /Codeine # 3 tab] Insulin Glargine,Hum.rec.anlog 45 unit SQ HS #5 insuln.pen 11/14/18 Unknown Rx [Basaglar Kwikpen U-100] Insulin Lispro [Admelog] 15 unit SQ AC #1 vial 11/14/18 Unknown Rx Sulfamethoxazole/Trimethoprim 1 each PO BID #14 tablet 11/14/18 Unknown Rx [Bactrim DS TAB] Famotidine [Pepcid] 20 mg PO BID #30 tablet 12/09/19 Unknown Rx Naproxen 500 mg PO BID PRN #30 tablet 12/09/19 Unknown Rx Nitrofurantoin Cocke/M-Cryst 100 mg PO BID 7 Days #14 capsule 12/09/19 Unknown Rx [Macrobid CAP] ED Physical Exam - General Limitations: No Limitations General appearance: alert, in no apparent distress - Head Head exam: Present: atraumatic, normocephalic, normal inspection - Eye Eye exam: Present: normal appearance, PERRL - ENT ENT exam: Present: mucous membranes dry - Neck Neck exam: Present: normal inspection, full ROM. Absent: tenderness, meningismus, lymphadenopathy, thyromegaly - Respiratory Respiratory exam: Present: normal lung sounds bilaterally - Cardiovascular Cardiovascular Exam: Present: regular rate, normal rhythm, normal heart sounds - GI/Abdominal GI/Abdominal exam: Present: soft, tenderness, normal bowel sounds. Absent: distended, guarding, rebound, rigid, organomegaly, mass, bruit, pulsatile mass, hernia - Extremities Exam Extremities exam: Present: normal inspection, full ROM, normal capillary refill. Absent: pedal edema, calf tenderness - Back Exam Back exam: Present: normal inspection, full ROM. Absent: CVA tenderness (R), CVA tenderness (L) - Neurological Exam Neurological exam: Present: alert, oriented X3, CN II-XII intact, normal gait, reflexes normal. Absent: motor sensory deficit - Psychiatric Psychiatric exam: Present: normal mood - Skin Skin exam: Present: warm, dry, intact ED Course Vital Signs 07/19/20 07/19/20 07/19/20 11:16 15:30 15:45 Temperature 98.1 F Pulse Rate 108 H 97 H Respiratory 16 19 Rate Blood Pressure 148/88 143/86 O2 Sat by Pulse 97 94 97 Oximetry 07/19/20 07/19/20 07/19/20 16:01 16:15 16:31 Temperature Pulse Rate 99 H 95 H 101 H Respiratory 21 21 21 Rate Blood Pressure 132/73 143/86 143/86 O2 Sat by Pulse 96 95 98 Oximetry 07/19/20 07/19/20 17:09 17:15 Temperature Pulse Rate 104 H 104 H Respiratory 18 13 Rate Blood Pressure 132/73 132/73 O2 Sat by Pulse 96 Oximetry ED Medical Decision Making - Lab Data Result diagrams: 07/19/20 11:39 07/19/20 11:39 - Radiology Data Radiology results: report reviewed - Medical Decision Making Patient is 40 years old female with history of diabetes and a recent diagnosis of small bowel obstruction. Patient presented to the ER complaining of high blood sugar, nausea and vomiting. Patient stated that she was out of her insulin for a while but she started taking it 2 days ago. Patient stated that she went to [facility] ER and she was diagnosed with small bowel obstruction however she was discharged from the ER. Patient stated that since then she has been vomiting and not getting better. Patient denied any fever or chills. No chest pain, shortness of breath, cough. Patient received normal saline, insulin and Zofran. Patient stated that she is feeling much better no more nausea. CT abdomen and pelvis with IV contrast showed no evidence of small bowel obstruction or any other acute abnormalities. Patient stated that she is out of her insulin. Patient given prescription for Lantus and NovoLog and advised to follow-up with her primary doctor in the next 2 to 3 days and to return to the ER if she develop any new symptoms. Critical care attestation.: If time is entered above; I have spent that time in minutes in the direct care of this critically ill patient, excluding procedure time. ED Disposition Clinical Impression: Acute hyperglycemia, Acute abdominal pain Disposition: TO HOME OR SELFCARE Is pt being admited?: No Condition: Stable Instructions: Abdominal Pain (ED), Diabetic Hyperglycemia (ED) Referrals: VERNON ALEMAN [Primary Care Provider] - 3-5 Days
[2020-07-19] MEDS ORDERED: INSULIN REGULAR, HUMAN 100 UNIT/ML 3ML VIAL IV ONE (16:07)
[2020-07-19 17:29] VITALS: BP 132/73
[2020-07-19] MEDS ORDERED: INSULIN REGULAR, HUMAN 100 UNITS/1 ML ONE (17:30)
[2020-07-19] MEDS ORDERED: ONDANSETRON 4 MG/2 ML INJ ONE ×2 (17:53→17:56)
--- NOTE | 2020-07-19 17:57 | Cat Scan Report ---
CT abdomen pelvis w con INDICATION: Pain. COMPARISON: 12/09/2019 TECHNIQUE: Abdominal and pelvic CT exam performed. All CT scans at this location are performed using CT dose reduction for ALARA by means of automated exposure control. FINDINGS: CT ABDOMEN and PELVIS: Lung Bases: No significant abnormality. Liver: No significant abnormality. Biliary: No significant abnormality. Spleen: No significant abnormality. Pancreas: No significant abnormality. Adrenals: No significant abnormality. Kidneys: No significant abnormality. Lymphatics: No lymphadenopathy. Vasculature: No significant abnormality. Bowel/Peritoneum: Sutures are seen within the lower ventral abdomen which could be from prior partial small bowel resection. No significant abnormality. Normal appendix. Pelvis: No significant abnormality. Osseous Structures: No aggressive osseous lesion. Additional Findings: Small fat-containing umbilical hernia. IMPRESSION: 1. No significant abnormality of the abdomen or pelvis. Signer Name: Oli Dietz MD Signed: 07/19/2020 5:53 PM Workstation Name: [id number]
== END 2020-07-19 19:55 | disposition home or self-care (01) ==
LOC: ED 11:12
DX: E11.65 Type 2 diabetes mellitus with hyperglycemia (principal); J45.909 Unspecified asthma, uncomplicated; E66.01 Morbid (severe) obesity due to excess calories; F17.200 Nicotine dependence, unspecified, uncomplicated; Z98.890 Other specified postprocedural states; Z79.899 Other long term (current) drug therapy; Z88.6 Allergy status to analgesic agent; Z88.1 Allergy status to other antibiotic agents; Z88.0 Allergy status to penicillin
CPT/HCPCS: 36415; 74177; 80053; 81001; 81025; 82962; 85027; 96361; 96374; 96375; 99284; J2405; J7030; Q9967; J1815

== ENCOUNTER 2020-09-05 15:49 | Emergency (ER) | payer MEDICAID ==
[2020-09-05 16:26] VITALS: BP 156/89
--- NOTE | 2020-09-05 17:24 | Emergency Department Report ---
ED ENT HPI - General Chief complaint: Allergic Reaction Stated complaint: FACE SWOLLEN/PAIN Time Seen by Provider: 09/05/20 17:21 Source: patient Mode of arrival: Ambulatory Limitations: No Limitations - History of Present Illness Initial comments: Patient is a 40-year-old female who presents emergency room with complaints of left upper facial swelling that began 2 days ago. She has associated left upper dental pain. She states that she last saw a dentist approximately a year ago without any complications at that time per patient. She denies any fever, chills, vomiting, difficulty swallowing, difficulty breathing. She has a past medical history of diabetes. Allergy to penicillin and clarithromycin. [facility] 08/05/2020, denies possibility of , states she has irregular cycles. - Related Data Previous Rx's Medication Instructions Recorded Last Taken Type Acetaminophen/Codeine [Tylenol 1 tab PO Q6H PRN #7 tab 11/14/18 Unknown Rx /Codeine # 3 tab] Insulin Glargine,Hum.rec.anlog 45 unit SQ HS #5 insuln.pen 11/14/18 Unknown Rx [Basaglar Kwikpen U-100] Insulin Lispro [Admelog] 15 unit SQ AC #1 vial 11/14/18 Unknown Rx Sulfamethoxazole/Trimethoprim 1 each PO BID #14 tablet 11/14/18 Unknown Rx [Bactrim DS TAB] Famotidine [Pepcid] 20 mg PO BID #30 tablet 12/09/19 Unknown Rx Naproxen 500 mg PO BID PRN #30 tablet 12/09/19 Unknown Rx Nitrofurantoin [place]/M-Cryst 100 mg PO BID 7 Days #14 capsule 12/09/19 Unknown Rx [Macrobid CAP] Insulin Glargine [Lantus VIAL] 50 units SUB-Q QHS #5 vial 07/19/20 Unknown Rx Insulin Lispro [Admelog] 10 unit SQ AC #5 vial 07/19/20 Unknown Rx Ondansetron [Zofran ODT TAB] 8 mg PO Q8HR PRN #20 tab.rapdis 07/19/20 Unknown Rx Clindamycin [Clindamycin CAP] 450 mg PO Q8HR 7 Days #63 capsule 09/05/20 Unknown Rx Naproxen [EC-Naprosyn] 500 mg PO BID PRN #14 tablet. 09/05/20 Unknown Rx Allergies Allergy/AdvReac Type Severity Reaction Status Date / Time lactose Allergy Unknown Unknown Verified 07/29/15 17:59 penicillin G Allergy Dizziness Verified 09/27/15 15:55 clarithromycin [From Biaxin] AdvReac Shortness Verified 07/29/15 17:59 of Breath ED Dental HPI - General Chief complaint: Allergic Reaction Stated complaint: FACE SWOLLEN/PAIN Time Seen by Provider: 09/05/20 17:21 Source: patient Mode of arrival: Ambulatory Limitations: No Limitations - Related Data Previous Rx's Medication Instructions Recorded Last Taken Type Acetaminophen/Codeine [Tylenol 1 tab PO Q6H PRN #7 tab 11/14/18 Unknown Rx /Codeine # 3 tab] Insulin Glargine,Hum.rec.anlog 45 unit SQ HS #5 insuln.pen 11/14/18 Unknown Rx [Basaglar Kwikpen U-100] Insulin Lispro [Admelog] 15 unit SQ AC #1 vial 11/14/18 Unknown Rx Sulfamethoxazole/Trimethoprim 1 each PO BID #14 tablet 11/14/18 Unknown Rx [Bactrim DS TAB] Famotidine [Pepcid] 20 mg PO BID #30 tablet 12/09/19 Unknown Rx Naproxen 500 mg PO BID PRN #30 tablet 12/09/19 Unknown Rx Nitrofurantoin [place]/M-Cryst 100 mg PO BID 7 Days #14 capsule 12/09/19 Unknown Rx [Macrobid CAP] Insulin Glargine [Lantus VIAL] 50 units SUB-Q QHS #5 vial 07/19/20 Unknown Rx Insulin Lispro [Admelog] 10 unit SQ AC #5 vial 07/19/20 Unknown Rx Ondansetron [Zofran ODT TAB] 8 mg PO Q8HR PRN #20 tab.rapdis 07/19/20 Unknown Rx Clindamycin [Clindamycin CAP] 450 mg PO Q8HR 7 Days #63 capsule 09/05/20 Unknown Rx Naproxen [EC-Naprosyn] 500 mg PO BID PRN #14 tablet. 09/05/20 Unknown Rx Allergies Allergy/AdvReac Type Severity Reaction Status Date / Time lactose Allergy Unknown Unknown Verified 07/29/15 17:59 penicillin G Allergy Dizziness Verified 09/27/15 15:55 clarithromycin [From Biaxin] AdvReac Shortness Verified 07/29/15 17:59 of Breath ED Review of Systems ROS: Stated complaint: FACE SWOLLEN/PAIN Other details as noted in HPI Comment: All other systems reviewed and negative ED Past Medical Hx - Past Medical History Previous Medical History?: Yes Hx Congestive Heart Failure: No Hx Diabetes: Yes Hx Deep Vein Thrombosis: No Hx Arthritis: No Hx Asthma: Yes Hx COPD: No Hx HIV: No Additional medical history: MORBID OBESITY - Surgical History Past Surgical History?: Yes Hx Pacemaker: No Hx Internal Defibrillator: No Additional Surgical History: X2. BOWEL REPAIR - Social History Smoking Status: Current Every Day Smoker Substance Use Type: None - Medications Home Medications: Home Medications Medication Instructions Recorded Confirmed Last Taken Type Acetaminophen/Codeine [Tylenol 1 tab PO Q6H PRN #7 tab 11/14/18 Unknown Rx /Codeine # 3 tab] Insulin Glargine,Hum.rec.anlog 45 unit SQ HS #5 insuln.pen 11/14/18 Unknown Rx [Basaglar Kwikpen U-100] Insulin Lispro [Admelog] 15 unit SQ AC #1 vial 11/14/18 Unknown Rx Sulfamethoxazole/Trimethoprim 1 each PO BID #14 tablet 11/14/18 Unknown Rx [Bactrim DS TAB] Famotidine [Pepcid] 20 mg PO BID #30 tablet 12/09/19 Unknown Rx Naproxen 500 mg PO BID PRN #30 tablet 12/09/19 Unknown Rx Nitrofurantoin [place]/M-Cryst 100 mg PO BID 7 Days #14 capsule 12/09/19 Unknown R x [Macrobid CAP] Insulin Glargine [Lantus VIAL] 50 units SUB-Q QHS #5 vial 07/19/20 Unknown Rx Insulin Lispro [Admelog] 10 unit SQ AC #5 vial 07/19/20 Unknown Rx Ondansetron [Zofran ODT TAB] 8 mg PO Q8HR PRN #20 tab.rapdis 07/19/20 Unknown Rx Clindamycin [Clindamycin CAP] 450 mg PO Q8HR 7 Days #63 capsule 09/05/20 Unknown Rx Naproxen [EC-Naprosyn] 500 mg PO BID PRN #14 tablet. 09/05/20 Unknown Rx ED Physical Exam - General Limitations: No Limitations General appearance: alert, in no apparent distress - Head Head exam: Present: atraumatic, normocephalic - Eye Eye exam: Present: normal appearance - ENT ENT exam: Present: mucous membranes moist, other (there is a dental caries present to the left upper back molar with a 1 cm area of induration present to the adjacent gumline, there is trace edema to the left maxillary region, no crepitus, no fluctuance, uvula is midline, no uvular edema or deviation, no trismus, no tongue elevation, no muffled voice) - Respiratory Respiratory exam: Present: normal lung sounds bilaterally. Absent: respiratory distress, wheezes, rales, rhonchi, stridor, chest wall tenderness, accessory muscle use, decreased breath sounds, prolonged expiratory - Cardiovascular Cardiovascular Exam: Present: regular rate, normal rhythm, normal heart sounds. Absent: systolic murmur, diastolic murmur, rubs, gallop - Neurological Exam Neurological exam: Present: alert, oriented X3 - Psychiatric Psychiatric exam: Present: normal affect, normal mood - Skin Skin exam: Present: warm, dry, intact ED Course Vital Signs 09/05/20 16:25 Temperature 98.7 F Pulse Rate 97 H Respiratory 20 Rate Blood Pressure 156/89 O2 Sat by Pulse 97 Oximetry ED Medical Decision Making - Medical Decision Making Patient is a 40-year-old female who presents emergency room with complaints of left upper facial swelling that began 2 days ago. She has associated left upper dental pain. She states that she last saw a dentist approximately a year ago without any complications at that time per patient. She denies any fever, chills, vomiting, difficulty swallowing, difficulty breathing. She has a past medical history of diabetes. Allergy to penicillin and clarithromycin. [facility] 08/05/2020, denies possibility of , states she has irregular cycles. VSS. on exam: there is a dental caries present to the left upper back molar with a 1 cm area of induration present to the adjacent gumline, there is trace edema to the left maxillary region, no crepitus, no fluctuance, uvula is midline, no uvular edema or deviation, no trismus, no tongue elevation, no muffled voice. Examination appears consistent with dental carry and dental abscess. Patient given prescription for clindamycin and naproxen. Advised patient Please take medication as prescribed. Increase your fluid intake. Follow-up with a dentist. It is very important that you follow-up with dentist. Return to emergency room for new or worsening symptoms. Critical care attestation.: If time is entered above; I have spent that time in minutes in the direct care of this critically ill patient, excluding procedure time. ED Disposition Clinical Impression: Dental caries, Dental abscess Disposition: TO HOME OR SELFCARE Is pt being admited?: No Does the pt Need Aspirin: No Condition: Stable Instructions: Dental Abscess Additional Instructions: Please take medication as prescribed. Increase your fluid intake. Follow-up with a dentist. It is very important that you follow-up with dentist. Return to emergency room for new or worsening symptoms. Prescriptions: Clindamycin [Clindamycin CAP] 450 mg PO Q8HR 7 Days #63 capsule Naproxen [EC-Naprosyn] 500 mg PO BID PRN #14 tablet.dr MARTÍNEZ Reason: pain Referrals: [facility] [Outside] - 2-3 Days [facility] [Outside] - 2-3 Days Time of Disposition: 17:25 Print Language: CAPE VERDEAN
== END 2020-09-05 18:05 | disposition home or self-care (01) ==
LOC: ED 15:49
DX: K04.7 Periapical abscess without sinus (principal); K02.9 Dental caries, unspecified; E11.9 Type 2 diabetes mellitus without complications; J45.909 Unspecified asthma, uncomplicated; F17.200 Nicotine dependence, unspecified, uncomplicated; Z98.890 Other specified postprocedural states; Z79.2 Long term (current) use of antibiotics; Z79.4 Long term (current) use of insulin; Z79.899 Other long term (current) drug therapy; Z88.0 Allergy status to penicillin; Z88.8 Allergy status to other drugs, medicaments and biological substances
CPT/HCPCS: 99282

== ENCOUNTER 2021-02-09 13:20 | Emergency (ER) | payer MEDICAID ==
--- NOTE | 2021-02-09 16:58 | Event Note ---
ED Screening Note ED Screening Note: Patient states that she has hyperglycemia She is reports her symptoms are polydipsia, polyuria, nausea, vomiting She denies any diarrhea, fever, cough, abdominal pain, shortness of breath She states that she has not been checking her blood sugar as she cannot find her glucometer She states that she typically uses a sliding scale She states lately since she has not been checking her sugars she has been giving herself 50 units of NovoLog 70/30 This initial assessment/diagnostic orders/clinical plan/treatment(s) is/are subject to change based on patients health status, clinical progression and re- assessment by fellow clinical providers in the ED. Further treatment and workup at subsequent clinical providers discretion. Patient/guardian urged not to elope from the ED as their condition may be serious if not clinically assessed and managed. Initial orders include: labs, ua
[2021-02-09 17:33] LABS: Basophils % (Auto) 0.5 % (0.0-1.8); Eosinophils # (Auto) 0.2 K/mm3 (0.0-0.4); Hematocrit 41.7 % (30.3-42.9); Hemoglobin 13.6 gm/dl (10.1-14.3); Lymphocytes # (Auto) 2.2 K/mm3 (1.2-5.4); Lymphocytes % (Auto) 28.6 % (13.4-35.0); Mean Corpuscular HGB Conc 33 % (30-34); Mean Corpuscular Volume 87 fl (79-97); Monocytes # (Auto) 0.5 K/mm3 (0.0-0.8); Monocytes % (Auto) 7.1 % (0.0-7.3); Platelet Count 303 K/mm3 (140-440); Red Blood Count 4.78 M/mm3 (3.65-5.03); Red Cell Distribution Width 14.5 % (13.2-15.2)
[2021-02-09 17:52] LABS: Alanine Aminotransferase 10 units/L (7-56); Albumin 3.7 g/dL (3.9-5); Blood Urea Nitrogen 9 mg/dL (7-17); Calcium 9.3 mg/dL (8.4-10.2); Hemolysis Index 4
[2021-02-09 17:56] LABS: BUN/Creatinine Ratio 15
[2021-02-09] MEDS ORDERED: SODIUM CHLORIDE 0.9% 1000 ML 1,000 ML IV ONE (17:58)
[2021-02-09] MEDS ORDERED: INSULIN REGULAR, HUMAN 100 UNITS/1 ML IV ONE (22:19)
--- NOTE | 2021-02-09 22:24 | Emergency Department Report ---
ED General Adult HPI - General Chief complaint: Hyperglycemia Stated complaint: ELEVATED BLOOD GLUCOSE Time Seen by Provider: 02/09/21 16:56 Source: patient Mode of arrival: Ambulatory Limitations: No Limitations - History of Present Illness Initial comments: Patient is 41 years old morbidly obese female with history of diabetes and asthma. Patient stated that she is taking 70/30 insulin and sliding scale. Patient presented to the ER complaining of high blood sugar, nausea, increased urinary frequency and thirsty. Patient denied any fever or chills. No chest pain or shortness of breath. Patient also denies any abdominal pain or diarrhea. -: Sudden Associated Symptoms: denies other symptoms - Related Data Previous Rx's Medication Instructions Recorded Last Taken Type Acetaminophen/Codeine [Tylenol 1 tab PO Q6H PRN #7 tab 11/14/18 Unknown Rx /Codeine # 3 tab] Insulin Glargine,Hum.rec.anlog 45 unit SQ HS #5 insuln.pen 11/14/18 Unknown Rx [Basaglar Kwikpen U-100] Insulin Lispro [Admelog] 15 unit SQ AC #1 vial 11/14/18 Unknown Rx Sulfamethoxazole/Trimethoprim 1 each PO BID #14 tablet 11/14/18 Unknown Rx [Bactrim DS TAB] Famotidine [Pepcid] 20 mg PO BID #30 tablet 12/09/19 Unknown Rx Naproxen 500 mg PO BID PRN #30 tablet 12/09/19 Unknown Rx Nitrofurantoin [place]/M-Cryst 100 mg PO BID 7 Days #14 capsule 12/09/19 Unknown Rx [Macrobid CAP] Insulin Glargine [Lantus VIAL] 50 units SUB-Q QHS #5 vial 07/19/20 Unknown Rx Insulin Lispro [Admelog] 10 unit SQ AC #5 vial 07/19/20 Unknown Rx Ondansetron [Zofran ODT TAB] 8 mg PO Q8HR PRN #20 tab.rapdis 07/19/20 Unknown Rx Clindamycin [Clindamycin CAP] 450 mg PO Q8HR 7 Days #63 capsule 09/05/20 Unknown Rx Naproxen [EC-Naprosyn] 500 mg PO BID PRN #14 tablet. 09/05/20 Unknown Rx Allergies Allergy/AdvReac Type Severity Reaction Status Date / Time lactose Allergy Unknown Unknown Verified 07/29/15 17:59 penicillin G Allergy Dizziness Verified 09/27/15 15:55 clarithromycin [From Biaxin] AdvReac Shortness Verified 07/29/15 17:59 of Breath ED Review of Systems ROS: Stated complaint: ELEVATED BLOOD GLUCOSE Other details as noted in HPI Comment: All other systems reviewed and negative Constitutional: denies: chills, fever Respiratory: denies: cough, shortness of breath, SOB with exertion, SOB at rest, wheezing Cardiovascular: denies: chest pain Endocrine: increased thirst, increased urine Gastrointestinal: nausea. denies: abdominal pain, vomiting, diarrhea, constipation, hematemesis Musculoskeletal: denies: back pain Neurological: denies: headache, weakness, numbness, paresthesias, confusion ED Past Medical Hx - Past Medical History Hx Congestive Heart Failure: No Hx Diabetes: Yes Hx Deep Vein Thrombosis: No Hx Arthritis: No Hx Asthma: Yes Hx COPD: No Hx HIV: No Additional medical history: MORBID OBESITY - Surgical History Hx Pacemaker: No Hx Internal Defibrillator: No Additional Surgical History: X2. BOWEL REPAIR - Social History Smoking Status: Current Every Day Smoker Substance Use Type: None - Medications Home Medications: Home Medications Medication Instructions Recorded Confirmed Last Taken Type Acetaminophen/Codeine [Tylenol 1 tab PO Q6H PRN #7 tab 11/14/18 Unknown Rx /Codeine # 3 tab] Insulin Glargine,Hum.rec.anlog 45 unit SQ HS #5 insuln.pen 11/14/18 Unknown Rx [Basaglar Kwikpen U-100] Insulin Lispro [Admelog] 15 unit SQ AC #1 vial 11/14/18 Unknown Rx Sulfamethoxazole/Trimethoprim 1 each PO BID #14 tablet 11/14/18 Unknown Rx [Bactrim DS TAB] Famotidine [Pepcid] 20 mg PO BID #30 tablet 12/09/19 Unknown Rx Naproxen 500 mg PO BID PRN #30 tablet 12/09/19 Unknown Rx Nitrofurantoin [place]/M-Cryst 100 mg PO BID 7 Days #14 capsule 12/09/19 Unknown Rx [Macrobid CAP] Insulin Glargine [Lantus VIAL] 50 units SUB-Q QHS #5 vial 07/19/20 Unknown Rx Insulin Lispro [Admelog] 10 unit SQ AC #5 vial 07/19/20 Unknown Rx Ondansetron [Zofran ODT TAB] 8 mg PO Q8HR PRN #20 tab.rapdis 07/19/20 Unknown Rx Clindamycin [Clindamycin CAP] 450 mg PO Q8HR 7 Days #63 capsule 09/05/20 Unknown Rx Naproxen [EC-Naprosyn] 500 mg PO BID PRN #14 tablet. 09/05/20 Unknown Rx ED Physical Exam - General Limitations: No Limitations General appearance: alert, in no apparent distress - Head Head exam: Present: atraumatic, normocephalic, normal inspection - Eye Eye exam: Present: normal appearance, PERRL - ENT ENT exam: Present: mucous membranes dry - Neck Neck exam: Present: normal inspection, full ROM. Absent: tenderness, meningismus - Respiratory Respiratory exam: Present: normal lung sounds bilaterally - Cardiovascular Cardiovascular Exam: Present: regular rate, normal rhythm, normal heart sounds - GI/Abdominal GI/Abdominal exam: Present: soft, normal bowel sounds. Absent: distended, tenderness, guarding, rebound, rigid, organomegaly, mass, bruit, pulsatile mass, hernia - Extremities Exam Extremities exam: Present: normal inspection, full ROM, normal capillary refill. Absent: pedal edema, calf tenderness - Back Exam Back exam: Present: normal inspection, full ROM. Absent: CVA tenderness (R), CVA tenderness (L), muscle spasm, paraspinal tenderness, vertebral tenderness, rash noted - Neurological Exam Neurological exam: Present: alert, oriented X3, CN II-XII intact, normal gait, reflexes normal. Absent: motor sensory deficit - Psychiatric Psychiatric exam: Present: normal mood - Skin Skin exam: Present: warm, intact, normal color ED Course Vital Signs 02/09/21 16:52 Temperature 98.5 F Pulse Rate 91 H Respiratory 20 Rate Blood Pressure 150/90 O2 Sat by Pulse 99 Oximetry ED Medical Decision Making - Lab Data Result diagrams: 02/09/21 17:10 02/09/21 17:10 - Medical Decision Making Patient is 41 years old morbidly obese female with history of diabetes and asthma. Patient stated that she is taking 70/30 insulin and sliding scale. Patient presented to the ER complaining of high blood sugar, nausea, increased urinary frequency and thirsty. Patient denied any fever or chills. No chest pain or shortness of breath. Patient also denies any abdominal pain or diarrhea. Labs reviewed and showed elevated blood sugar more than 500. Patient received normal saline and 5 units of regular insulin IV. Repeat blood sugar is 275. Patient advised to follow-up with her primary doctor in the next 2 to 3 days and to return to the ER if she develop any new symptoms. Critical care attestation.: If time is entered above; I have spent that time in minutes in the direct care of this critically ill patient, excluding procedure time. ED Disposition Clinical Impression: Acute hyperglycemia, Nausea Disposition: DC- TO HOME OR SELFCARE Is pt being admited?: No Condition: Stable Instructions: Nausea, Adult, Hyperglycemia Referrals: VERNON ALEMAN DO [Primary Care Provider] - 3-5 Days
[2021-02-09] MEDS ORDERED: ONDANSETRON 4 MG/2 ML INJ IV ONE (22:27)
[2021-02-09] MEDS ORDERED: SODIUM CHLORIDE 0.9% 1000 ML 1,000 ML ONE (22:33)
[2021-02-09 22:50] LABS: Bacteria,Urine 1+ /HPF (Negative); Bilirubin,Urine NEG (Negative); Blood,Urine NEG (Negative); Color,Urine Yellow (Yellow); Protein,Urine <15 mg/dL mg/dL (Negative); Urobilinogen,Urine < 2.0 mg/dL (<2.0)
[2021-02-09] MEDS ORDERED: KETOROLAC 30 MG/1 ML INJ IV ONE (22:55)
[2021-02-10 00:10] VITALS: BP 141/77
== END 2021-02-10 00:08 | disposition home or self-care (01) ==
LOC: ED 13:20
DX: E11.65 Type 2 diabetes mellitus with hyperglycemia (principal); R11.0 Nausea; J45.909 Unspecified asthma, uncomplicated; E66.01 Morbid (severe) obesity due to excess calories; F17.200 Nicotine dependence, unspecified, uncomplicated; Z98.890 Other specified postprocedural states; Z79.899 Other long term (current) drug therapy; Z68.44 Body mass index [BMI] 60.0-69.9, adult; Z88.0 Allergy status to penicillin; Z88.8 Allergy status to other drugs, medicaments and biological substances
CPT/HCPCS: 36415; 80053; 81001; 82805; 82962; 85025; 87086; 96361; 96374; 96375; 99283; J1885; J2405; J7030; J1815

== ENCOUNTER 2021-09-18 17:11 | Emergency (ER) | payer MEDICAID, OTHER ==
[2021-09-18 18:13] LABS: Basophils % (Auto) 0.2 % (0.0-1.8); Eosinophils # (Auto) 0.1 K/mm3 (0.0-0.4); Eosinophils % (Auto) 1.6 % (0.0-4.3); Hematocrit 41.1 % (30.3-42.9); Hemoglobin 13.4 gm/dl (10.1-14.3); Lymphocytes # (Auto) 1.8 K/mm3 (1.2-5.4); Lymphocytes % (Auto) 22.7 % (13.4-35.0); Mean Corpuscular HGB Conc 33 % (30-34); Mean Corpuscular Volume 89 fl (79-97); Monocytes # (Auto) 0.5 K/mm3 (0.0-0.8); Monocytes % (Auto) 6.7 % (0.0-7.3); Platelet Count 291 K/mm3 (140-440); Red Blood Count 4.61 M/mm3 (3.65-5.03); Red Cell Distribution Width 14.5 % (13.2-15.2)
[2021-09-18 18:39] LABS: Alanine Aminotransferase 8 units/L (7-56); Albumin 3.6 g/dL (3.9-5); Blood Urea Nitrogen 10 mg/dL (7-17); Calcium 9.5 mg/dL (8.4-10.2); Hemolysis Index 22
[2021-09-18 18:42] LABS: BUN/Creatinine Ratio 14
[2021-09-18] MEDS ORDERED: SODIUM CHLORIDE 0.9% 1000 ML 1,000 ML IV ONE (18:48)
--- NOTE | 2021-09-18 19:05 | Emergency Department Report ---
HPI - General Chief Complaint: Hyperglycemia Time Seen by Provider: 09/18/21 18:37 - HPI HPI: MSE 7/reassessment 3 Patient is a 41-year-old female present with a chief complaint of hyperglycemia. Patient is diabetic states she has been taking her medication as prescribed. The patient states for the past week she has had dysuria, body aches urinary f requency polydipsia and dry mouth. Patient states she did develop some nausea vomiting today as well. The patient states her blood sugars been over 500 for the entire week and today was 581 prompting her to come to the emergency department. Patient denies history of fever ED Past Medical Hx - Past Medical History Hx Diabetes: Yes Hx Asthma: Yes Additional medical history: MORBID OBESITY - Surgical History Additional Surgical History: X2. BOWEL REPAIR - Family History Family history: no significant - Social History Smoking Status: Current Every Day Smoker (1/2 pack/day) Substance Use Type: None (Denies illicit drug use) - Medications Home Medications: Home Medications Medication Instructions Recorded Confirmed Last Taken Type Acetaminophen/Codeine [Tylenol 1 tab PO Q6H PRN #7 tab 11/14/18 Unknown Rx /Codeine # 3 tab] Insulin Glargine,Hum.rec.anlog 45 unit SQ HS #5 insuln.pen 11/14/18 Unknown Rx [Basaglar Kwikpen U-100] Insulin Lispro [Admelog] 15 unit SQ AC #1 vial 11/14/18 Unknown Rx Sulfamethoxazole/Trimethoprim 1 each PO BID #14 tablet 11/14/18 Unknown Rx [Bactrim DS TAB] Famotidine [Pepcid] 20 mg PO BID #30 tablet 12/09/19 Unknown Rx Naproxen 500 mg PO BID PRN #30 tablet 12/09/19 Unknown Rx Nitrofurantoin [place]/M-Cryst 100 mg PO BID 7 Days #14 capsule 12/09/19 Unknown Rx [Macrobid CAP] Insulin Glargine [Lantus VIAL] 50 units SUB-Q QHS #5 vial 07/19/20 Unknown Rx Insulin Lispro [Admelog] 10 unit SQ AC #5 vial 07/19/20 Unknown Rx Ondansetron [Zofran ODT TAB] 8 mg PO Q8HR PRN #20 tab.rapdis 07/19/20 Unknown Rx Clindamycin [Clindamycin CAP] 450 mg PO Q8HR 7 Days #63 capsule 09/05/20 Unknown Rx Naproxen [EC-Naprosyn] 500 mg PO BID PRN #14 tablet. 09/05/20 Unknown Rx Insulin NPH/Regular [Novolin 70/30] 30 unit SUB-Q BID #5 vial 02/09/21 Unknown Rx Nitrofurantoin [place]/M-Cryst 100 mg PO Q12HR #14 capsule 09/18/21 Unknown Rx [Macrobid CAP] ED Review of Systems ROS: Stated complaint: HIGH BLOOD SUGAR Other details as noted in HPI Constitutional: denies: fever Eyes: denies: eye pain ENT: denies: throat pain Respiratory: no symptoms reported Cardiovascular: denies: chest pain Endocrine: no symptoms reported Gastrointestinal: nausea, vomiting Genitourinary: dysuria Musculoskeletal: myalgia. denies: back pain Neurological: denies: headache Physical Exam - Physical Exam Vital Signs: Vital Signs 09/18/21 17:16 Temperature 98.2 F Pulse Rate 98 H Respiratory 18 Rate Blood Pressure 140/78 O2 Sat by Pulse 97 Oximetry Physical Exam: GENERAL: The patient is well-developed well-nourished female lying on stretcher not appearing to be in acute distress. [] HEENT: Normocephalic. Atraumatic. Extraocular motions are intact. NECK: Supple. Trachea midline CHEST/LUNGS: Clear to auscultation. There is no respiratory distress noted. HEART/CARDIOVASCULAR: Regular. There is no tachycardia. There is no gallop rub or murmur. ABDOMEN: Abdomen is soft, with diffuse discomfort to palpation greatest at the suprapubic region. There is no rebound or guarding. Patient has normal bowel sounds. There is no abdominal distention. SKIN: There is no rash. There is no edema. There is no diaphoresis. NEURO: The patient is awake, alert, and oriented. The patient is cooperative. The patient has no focal neurologic deficits. The patient has normal speech. GCS 15 MUSCULOSKELETAL: There is right CVA tenderness. There is no evidence of acute injury. ED Course Vital Signs 09/18/21 17:16 Temperature 98.2 F Pulse Rate 98 H Respiratory 18 Rate Blood Pressure 140/78 O2 Sat by Pulse 97 Oximetry - Reevaluation(s) Reevaluation #1: 09/18/21 23:46 Glucose 182 ED Medical Decision Making - Lab Data Result diagrams: 09/18/21 17:39 09/18/21 17:39 Laboratory Tests 09/18/21 09/18/21 09/18/21 17:14 17:39 17:39 WBC 8.0 RBC 4.61 Hgb 13.4 Hct 41.1 MCV 89 MCH 29 MCHC 33 RDW 14.5 Plt Count 291 Lymph % (Auto) 22.7 [place] % (Auto) 6.7 Eos % (Auto) 1.6 Baso % (Auto) 0.2 Lymph # (Auto) 1.8 [place] # (Auto) 0.5 Eos # (Auto) 0.1 Baso # (Auto) 0.0 Seg Neutrophils % 68.8 Seg Neutrophils # 5.5 VBG pH Sodium 127 L Potassium 4.5 Chloride 94.3 L Carbon Dioxide 20 L Anion Gap 17 BUN 10 Creatinine 0.7 Estimated GFR > 60 BUN/Creatinine Ratio 14 Glucose 550 H* POC Glucose 463 H Calcium 9.5 Total Bilirubin 0.20 AST 7 ALT 8 Alkaline Phosphatase 157 H Total Protein 7.5 Albumin 3.6 L Albumin/Globulin Ratio 0.9 HCG, Qual Urine Color Urine Turbidity Urine pH Ur Specific [place] Urine Protein Urine Glucose (UA) Urine Ketones Urine Blood Urine Nitrite Urine Bilirubin Urine Urobilinogen Ur Leukocyte Esterase Urine WBC (Auto) Urine RBC (Auto) U Epithel Cells (Auto) Urine Bacteria (Auto) Urine Yeast (Budding) 09/18/21 09/18/21 09/18/21 17:39 17:39 20:03 WBC RBC Hgb Hct MCV MCH MCHC RDW Plt Count Lymph % (Auto) [place] % (Auto) Eos % (Auto) Baso % (Auto) Lymph # (Auto) [place] # (Auto) Eos # (Auto) Baso # (Auto) Seg Neutrophils % Seg Neutrophils # VBG pH 7.379 Sodium Potassium Chloride Carbon Dioxide Anion Gap BUN Creatinine Estimated GFR BUN/Creatinine Ratio Glucose POC Glucose Calcium Total Bilirubin AST ALT Alkaline Phosphatase Total Protein Albumin Albumin/Globulin Ratio HCG, Qual Negative Urine Color Straw Urine Turbidity Slightly-cloudy Urine pH 5.0 Ur Specific [place] 1.028 Urine Protein <15 mg/dl Urine Glucose (UA) >=500 Urine Ketones 20 Urine Blood Mod Urine Nitrite Neg Urine Bilirubin Neg Urine Urobilinogen < 2.0 Ur Leukocyte Esterase Lg Urine WBC (Auto) 45.0 H Urine RBC (Auto) 27.0 U Epithel Cells (Auto) 6.0 Urine Bacteria (Auto) 1+ Urine Yeast (Budding) 2+ 09/18/21 20:36 WBC RBC Hgb Hct MCV MCH MCHC RDW Plt Count Lymph % (Auto) [place] % (Auto) Eos % (Auto) Baso % (Auto) Lymph # (Auto) [place] # (Auto) Eos # (Auto) Baso # (Auto) Seg Neutrophils % Seg Neutrophils # VBG pH Sodium Potassium Chloride Carbon Dioxide Anion Gap BUN Creatinine Estimated GFR BUN/Creatinine Ratio Glucose POC Glucose 466 H Calcium Total Bilirubin AST ALT Alkaline Phosphatase Total Protein Albumin Albumin/Globulin Ratio HCG, Qual Urine Color Urine Turbidity Urine pH Ur Specific [place] Urine Protein Urine Glucose (UA) Urine Ketones Urine Blood Urine Nitrite Urine Bilirubin Urine Urobilinogen Ur Leukocyte Esterase Urine WBC (Auto) Urine RBC (Auto) U Epithel Cells (Auto) Urine Bacteria (Auto) Urine Yeast (Budding) - Differential Diagnosis Hyperglycemia, DKA, UTI, pyelonephritis Critical care attestation.: If time is entered above; I have spent that time in minutes in the direct care of this critically ill patient, excluding procedure time. ED Disposition Clinical Impression: Hyperglycemia, UTI (urinary tract infection) Disposition: HOME / SELF CARE / HOMELESS Is pt being admited?: No Does the pt Need Aspirin: No Condition: Stable Additional Instructions: Return to the emergency department should you develop worsening symptoms, inability to tolerate food or liquids, high fever or any other concerns Prescriptions: Nitrofurantoin [place]/M-Cryst [Macrobid CAP] 100 mg PO Q12HR #14 capsule Referrals: [facility] [Provider Group] - 3-5 Days Time of Disposition: 23:46
[2021-09-18 20:35] LABS: Bacteria,Urine 1+ /HPF (Negative); Bilirubin,Urine NEG (Negative); Blood,Urine MOD (Negative); Color,Urine Straw (Yellow); Protein,Urine <15 mg/dL mg/dL (Negative); Urobilinogen,Urine < 2.0 mg/dL (<2.0)
[2021-09-18] MEDS ORDERED: INSULIN REGULAR, HUMAN 100 UNITS/1 ML IV ONE (20:38)
[2021-09-18] MEDS ORDERED: CYCLOBENZAPRINE 10 MG TAB PO ONE (21:25)
[2021-09-19 00:44] VITALS: BP 132/86
== END 2021-09-19 00:50 | disposition home or self-care (01) ==
LOC: ED 17:11
DX: E11.65 Type 2 diabetes mellitus with hyperglycemia (principal); N39.0 Urinary tract infection, site not specified; F17.200 Nicotine dependence, unspecified, uncomplicated; J45.909 Unspecified asthma, uncomplicated
CPT/HCPCS: 36415; 80053; 81001; 82805; 82962; 84703; 85025; 87086; 96361; 96374; 99283; J7030; Q0162; Q9967; J1815

== ENCOUNTER 2021-11-28 01:42 | Emergency (ER) | payer OTHER ==
[2021-11-28] MEDS ORDERED: ONDANSETRON 4 MG/2 ML INJ IV ONE (01:57)
[2021-11-28] MEDS ORDERED: FAMOTIDINE 20 MG/2 ML INJ IV ONE (01:57)
[2021-11-28] MEDS ORDERED: SODIUM CHLORIDE 0.9% 1000 ML 1,000 ML IV ONE (01:57)
--- NOTE | 2021-11-28 01:59 | Emergency Department Report ---
ED Abdominal Pain HPI - General Stated Complaint: SEVERE ABD PAIN/BLOOD IN STOOL Time Seen by Provider: 11/28/21 01:54 - History of Present Illness Initial Comments: Patient presents secondary to abdominal pain. She has been having abdominal pain in the epigastric area for 3 weeks. She describes a burning pain. The pain has not been radiating or migrating. Yesterday she had bloody stools x2. She had bloody stools today x1. She decided to come here for evaluation. There is no blood in the urine. She has not had hematemesis or coffee-ground emesis. She denies melenic stool. She does describe this as bright red. There was no history of recent travel or trauma. She has not been sick. She has not been around any one that has been ill. She has not eaten anything that tasted better than usual. Patient has not been on antibiotics lately. She states that she is never had symptoms like this before but she knows that there is "something wrong inside." - Related Data Previous Rx's Medication Instructions Recorded Last Taken Type Insulin Glargine,Hum.rec.anlog 45 unit SQ HS #5 insuln.pen 11/14/18 Unknown Rx [Basaglar Kwikpen U-100] Insulin Lispro [Admelog] 15 unit SQ AC #1 vial 11/14/18 Unknown Rx Insulin Glargine [Lantus VIAL] 50 units SUB-Q QHS #5 vial 07/19/20 Unknown Rx Insulin Lispro [Admelog] 10 unit SQ AC #5 vial 07/19/20 Unknown Rx Ondansetron [Zofran ODT TAB] 8 mg PO Q8HR PRN #20 tab.rapdis 07/19/20 Unknown Rx Insulin NPH/Regular [NovoLIN 70/30] 30 unit SUB-Q BID #5 vial 09/19/21 Unknown Rx [place], Disposable [Needle] 1 each MC BID #50 dis.needle 09/19/21 Unknown Rx Pantoprazole [Protonix] 40 mg PO QDAY #30 tablet 11/28/21 Unknown Rx Sucralfate [Carafate] 1 gm PO ACHS #120 tablet 11/28/21 Unknown Rx Allergies Allergy/AdvReac Type Severity Reaction Status Date / Time lactose Allergy Unknown Unknown Verified 07/29/15 17:59 penicillin G Allergy Dizziness Verified 09/27/15 15:55 clarithromycin [From Biaxin] AdvReac Shortness Verified 07/29/15 17:59 of Breath ED Review of Systems ROS: Stated complaint: SEVERE ABD PAIN/BLOOD IN STOOL Other details as noted in HPI Comment: All other systems reviewed and negative Constitutional: denies: fever Eyes: denies: vision change ENT: denies: epistaxis Respiratory: denies: cough Cardiovascular: denies: chest pain Endocrine: denies: unexplained weight loss Gastrointestinal: as per HPI Genitourinary: denies: hematuria Musculoskeletal: denies: back pain Skin: denies: rash Neurological: denies: headache Hematological/Lymphatic: denies: easy bruising ED Past Medical Hx - Past Medical History Hx Diabetes: Yes Hx Asthma: Yes Additional medical history: MORBID OBESITY - Surgical History Additional Surgical History: X2. BOWEL REPAIR - Family History Family history: diabetes - Social History Smoking Status: Current Every Day Smoker (We discussed tobacco cessation) Substance Use Type: None (Denies illicit drug use) - Medications Home Medications: Home Medications Medication Instructions Recorded Confirmed Last Taken Type Insulin Glargine,Hum.rec.anlog 45 unit SQ HS #5 insuln.pen 11/14/18 Unknown Rx [Basaglar Kwikpen U-100] Insulin Lispro [Admelog] 15 unit SQ AC #1 vial 11/14/18 Unknown Rx Insulin Glargine [Lantus VIAL] 50 units SUB-Q QHS #5 vial 07/19/20 Unknown Rx Insulin Lispro [Admelog] 10 unit SQ AC #5 vial 07/19/20 Unknown Rx Ondansetron [Zofran ODT TAB] 8 mg PO Q8HR PRN #20 tab.rapdis 07/19/20 Unknown Rx Insulin NPH/Regular [NovoLIN 70/30] 30 unit SUB-Q BID #5 vial 09/19/21 Unknown Rx [place], Disposable [Needle] 1 each MC BID #50 dis.needle 09/19/21 Unknown Rx Pantoprazole [Protonix] 40 mg PO QDAY #30 tablet 11/28/21 Unknown Rx Sucralfate [Carafate] 1 gm PO ACHS #120 tablet 11/28/21 Unknown Rx ED Physical Exam - General Limitations: No Limitations, Other (Pulse ox noted and normal) General appearance: alert, in no apparent distress, obese (Morbid) - Head Head exam: Present: atraumatic, normocephalic - Eye Eye exam: Present: normal appearance, PERRL, EOMI. Absent: scleral icterus - ENT ENT exam: Present: normal orophraynx, normal external ear exam - Neck Neck exam: Present: normal inspection. Absent: meningismus - Respiratory Respiratory exam: Present: normal lung sounds bilaterally. Absent: respiratory distress - Cardiovascular Cardiovascular Exam: Present: regular rate, normal rhythm - GI/Abdominal GI/Abdominal exam: Present: soft, tenderness (Moderate epigastric). Absent: distended, guarding, rebound, pulsatile mass - Extremities Exam Extremities exam: Present: normal capillary refill - Back Exam Back exam: Absent: CVA tenderness (R), CVA tenderness (L) - Neurological Exam Neurological exam: Present: alert, oriented X3, CN II-XII intact. Absent: motor sensory deficit - Psychiatric Psychiatric exam: Present: normal affect, normal mood - Skin Skin exam: Present: warm, dry ED Course Vital Signs 11/28/21 01:59 Temperature 98.0 F Pulse Rate 86 Respiratory 20 Rate Blood Pressure 149/88 O2 Sat by Pulse 97 Oximetry - Reevaluation(s) Reevaluation #1: 11/28/21 01:58 IV and labs ordered. Reevaluation #2: 11/28/21 05:48 Labs have been noted. I started to discuss discharge with the patient. She still stated that she was having pain and was convinced that there was something going on internally. CT was ordered. Care was signed out pending CT results which I suspect will be normal. ED Medical Decision Making - Lab Data Result diagrams: 11/28/21 02:18 11/28/21 02:18 - Medical Decision Making Patient presents with epigastric pain for 3 weeks and bright red blood per rectum. It is certainly conceivable that she has an ulcer, although I do not believe this represents a brisk upper GI bleed. I do not believe this represents upper GI bleed as she does not have a significant anemia, melena, or elevated BUN. Patient would not get abdominal pain associated with a hemorrhoid. She could have gastritis or an ulcer. She could have [address] is currently pending. I suspect that this will not show any acute pathology and that outpatient endoscopy would be the next step. Critical Care Time: No Critical care attestation.: If time is entered above; I have spent that time in minutes in the direct care of this critically ill patient, excluding procedure time. ED Disposition Clinical Impression: Generalized abdominal pain, BRBPR (bright red blood per rectum) Disposition: HOME / SELF CARE / HOMELESS Is pt being admited?: No Condition: Stable Instructions: Rectal Bleeding, Abdominal Pain, Adult, Sjip-ve-Ivll Additional Instructions: Have a bland diet. Have a high-fiber diet. Drink plenty of water. Return for problems. Follow-up with your regular doctor and the director of loss prevention as referred. Return for problems or concerns. Prescriptions: Sucralfate [Carafate] 1 gm PO ACHS #120 tablet Pantoprazole [Protonix] 40 mg PO QDAY #30 tablet Referrals: VERNON ALEMAN DO [Primary Care Provider] - 3-5 Days JONI KOHLI MD [Staff Physician] - 3-5 Days
[2021-11-28 02:32] LABS: Hematocrit 38.5 % (30.3-42.9); Hemoglobin 12.1 gm/dl (10.1-14.3); Mean Corpuscular HGB Conc 31 % (30-34); Mean Corpuscular Volume 90 fl (79-97); Platelet Count 316 K/mm3 (140-440); Red Blood Count 4.26 M/mm3 (3.65-5.03)
[2021-11-28 02:54] LABS: Alanine Aminotransferase 6 units/L (7-56); Albumin 3.7 g/dL (3.9-5); BUN/Creatinine Ratio 16; Blood Urea Nitrogen 13 mg/dL (7-17); Hemolysis Index 7
[2021-11-28] MEDS ORDERED: fentaNYL 100 MCG/2 ML INJ IV ONE (05:47)
[2021-11-28 09:13] VITALS: BP 145/84
--- NOTE | 2021-11-28 23:52 | Cat Scan Report ---
CT ABDOMEN AND PELVIS WITH CONTRAST INDICATION / CLINICAL INFORMATION: generalized pain. TECHNIQUE: Axial CT images were obtained through the abdomen and pelvis after 100 cc Omni 300 IV cont rast. All CT scans at this location are performed using CT dose reduction for ALARA by means of auto mated exposure control. COMPARISON: CT abdomen and pelvis 07/19/2020 FINDINGS: LOWER CHEST: No significant abnormality of the imaged chest. LIVER: No significant abnormality. GALLBLADDER: No significant abnormality. BILE DUCTS: No significant abnormality. SPLEEN: No significant abnormality. PANCREAS: No significant abnormality. ADRENALS: No significant abnormality. RIGHT KIDNEY / URETER: No significant abnormality. LEFT KIDNEY / URETER: Subcentimeter cyst anterior mid left kidney unchanged. STOMACH / DUODENUM / SMALL BOWEL: Stable postop changes small bowel mid upper abdomen. Small bowel an d stomach demonstrate no acute findings. COLON: Diverticulosis without acute inflammation. APPENDIX: No significant abnormality. PERITONEUM: No free air or free fluid are present within the abdomen or pelvis. LYMPH NODES: No significant adenopathy. AORTA / ARTERIES: No significant abnormality. IVC / VEINS: No significant abnormality. URINARY BLADDER: No significant abnormality. REPRODUCTIVE ORGANS: No significant abnormality. ADDITIONAL ABDOMINAL/PELVIC FINDINGS: None. SKELETAL SYSTEM: No significant abnormality. IMPRESSION: 1. No acute findings within the abdomen or pelvis. Signer Name: Lc Henley II, MD Signed: 11/28/2021 7:08 AM Workstation Name: [id number]
== END 2021-11-28 09:13 | disposition home or self-care (01) ==
LOC: ED 01:42
DX: K62.5 Hemorrhage of anus and rectum (principal); R10.84 Generalized abdominal pain; I10 Essential (primary) hypertension; J45.909 Unspecified asthma, uncomplicated; Z98.890 Other specified postprocedural states; F17.200 Nicotine dependence, unspecified, uncomplicated; Z88.0 Allergy status to penicillin; Z91.09 Other allergy status, other than to drugs and biological substances
CPT/HCPCS: 36415; 74177; 80053; 83690; 84703; 85027; 96374; 96375; 99284; J2405; J3010; J3490; J7030; Q9967; 99283; Q0162

== ENCOUNTER 2022-03-13 21:15 | Emergency (ER) | payer OTHER ==
--- NOTE | 2022-03-13 22:45 | XRay Report ---
Right foot, 3 views HISTORY: Injury COMPARISON: None FINDINGS: No acute fracture or malalignment. Lisfranc interval is preserved. No significant arthritis. No focal soft tissue abnormality. IMPRESSION: No acute findings. Signer Name: Khoa Salinas MD Signed: 03/13/2022 10:41 PM Workstation Name: [id number]
--- NOTE | 2022-03-14 03:08 | Emergency Department Report ---
ED General Adult HPI - General Chief complaint: Extremity Problem,Nontraumatic Stated complaint: TOE INJURY Time Seen by Provider: 03/14/22 02:55 Source: patient Mode of arrival: Ambulatory Limitations: No Limitations - Related Data Previous Rx's Medication Instructions Recorded Last Taken Type Insulin Glargine,Hum.rec.anlog 45 unit SQ HS #5 insuln.pen 11/14/18 Unknown Rx [Basaglar Kwikpen U-100] Insulin Lispro [Admelog] 15 unit SQ AC #1 vial 11/14/18 Unknown Rx Insulin Glargine [Lantus VIAL] 50 units SUB-Q QHS #5 vial 07/19/20 Unknown Rx Insulin Lispro [Admelog] 10 unit SQ AC #5 vial 07/19/20 Unknown Rx Ondansetron [Zofran ODT TAB] 8 mg PO Q8HR PRN #20 tab.rapdis 07/19/20 Unknown Rx Insulin NPH/Regular [NovoLIN 70/30] 30 unit SUB-Q BID #5 vial 09/19/21 Unknown Rx [place], Disposable [Needle] 1 each MC BID #50 dis.needle 09/19/21 Unknown Rx Pantoprazole [Protonix] 40 mg PO QDAY #30 tablet 11/28/21 Unknown Rx Sucralfate [Carafate] 1 gm PO ACHS #120 tablet 11/28/21 Unknown Rx Colchicine 0.6 mg PO Q2HR #20 03/14/22 Unknown Rx Indomethacin [Indocin] 25 mg PO Q8H #15 cap 03/14/22 Unknown Rx Allergies Allergy/AdvReac Type Severity Reaction Status Date / Time lactose Allergy Unknown Unknown Verified 07/29/15 17:59 penicillin G Allergy Dizziness Verified 09/27/15 15:55 clarithromycin [From Biaxin] AdvReac Shortness Verified 07/29/15 17:59 of Breath ED Review of Systems ROS: Stated complaint: TOE INJURY Other details as noted in HPI Comment: All other systems reviewed and negative ED Past Medical Hx - Past Medical History Hx Diabetes: Yes Hx Asthma: Yes Additional medical history: MORBID OBESITY - Surgical History Additional Surgical History: X2. BOWEL REPAIR - Social History Smoking Status: Current Every Day Smoker (We discussed tobacco cessation) Substance Use Type: None (Denies illicit drug use) - Medications Home Medications: Home Medications Medication Instructions Recorded Confirmed Last Taken Type Insulin Glargine,Hum.rec.anlog 45 unit SQ HS #5 insuln.pen 11/14/18 Unknown Rx [Basaglar Kwikpen U-100] Insulin Lispro [Admelog] 15 unit SQ AC #1 vial 11/14/18 Unknown Rx Insulin Glargine [Lantus VIAL] 50 units SUB-Q QHS #5 vial 07/19/20 Unknown Rx Insulin Lispro [Admelog] 10 unit SQ AC #5 vial 07/19/20 Unknown Rx Ondansetron [Zofran ODT TAB] 8 mg PO Q8HR PRN #20 tab.rapdis 07/19/20 Unknown Rx Insulin NPH/Regular [NovoLIN 70/30] 30 unit SUB-Q BID #5 vial 09/19/21 Unknown Rx [place], Disposable [Needle] 1 each MC BID #50 dis.needle 09/19/21 Unknown Rx Pantoprazole [Protonix] 40 mg PO QDAY #30 tablet 11/28/21 Unknown Rx Sucralfate [Carafate] 1 gm PO ACHS #120 tablet 11/28/21 Unknown Rx Colchicine 0.6 mg PO Q2HR #20 03/14/22 Unknown Rx Indomethacin [Indocin] 25 mg PO Q8H #15 cap 03/14/22 Unknown Rx ED Physical Exam - General Limitations: No Limitations General appearance: alert, in no apparent distress - Head Head exam: Present: atraumatic, normocephalic - Eye Eye exam: Present: normal appearance, PERRL, EOMI Pupils: Present: normal accommodation - ENT ENT exam: Present: normal exam, normal orophraynx, mucous membranes moist, TM's normal bilaterally - Neck Neck exam: Present: normal inspection, full ROM - Respiratory Respiratory exam: Present: normal lung sounds bilaterally. Absent: respiratory distress, wheezes, rales, chest wall tenderness, accessory muscle use, decreased breath sounds - Cardiovascular Cardiovascular Exam: Present: regular rate, normal rhythm. Absent: systolic murmur, diastolic murmur, rubs, gallop - GI/Abdominal GI/Abdominal exam: Present: soft, normal bowel sounds. Absent: distended, tenderness, guarding, hyperactive bowel sounds, hypoactive bowel sounds - Extremities Exam Extremities exam: Present: normal inspection, tenderness (to right 1 mcpj tender with some warmth and redness. callus noted too. ), normal capillary refill - Back Exam Back exam: Present: normal inspection. Absent: CVA tenderness (R), CVA tenderness (L) - Neurological Exam Neurological exam: Present: alert, oriented X3, CN II-XII intact, normal gait - Psychiatric Psychiatric exam: Present: normal affect, normal mood. Absent: anxious, flat affect, manic - Skin Skin exam: Present: warm, dry, intact, normal color. Absent: rash ED Course Vital Signs 03/13/22 21:33 Temperature 98.6 F Pulse Rate 90 Respiratory 18 Rate Blood Pressure 155/85 O2 Sat by Pulse 96 Oximetry ED Medical Decision Making - Radiology Data Radiology results: report reviewed [facility] [address] [place] [address] XRay Report Signed Patient: NALLELY HARPER MR#: [id number] : 1980 Acct:[id number] Age/Sex: 42 / F ADM Date: 03/13/22 Loc: ED Attending Dr: Ordering Physician: ED MD RITA Date of Service: 03/13/22 Procedure(s): XR foot 3+V RT Accession Number(s): [id number] cc: ED MD RITA Fluoro Time In Minutes: Right foot, 3 views HISTORY: Injury COMPARISON: None FINDINGS: No acute fracture or malalignment. Lisfranc interval is preserved. No significant arthritis. No focal soft tissue abnormality. IMPRESSION: No acute findings. Signer Name: Khoa Stuart MD Signed: 03/13/2022 10:41 PM Workstation Name: [id number] Transcribed By: JS Dictated By: KHOA STUART MD Electronically Authenticated By: KHOA STUART MD Signed Date/Time: 03/13/222240 DD/ 39 TD/TT: Critical care attestation.: If time is entered above; I have spent that time in minutes in the direct care of this critically ill patient, excluding procedure time. ED Disposition Clinical Impression: [place] Disposition: HOME / SELF CARE / HOMELESS Is pt being admited?: No Does the pt Need Aspirin: No Condition: Stable Instructions: Low-Purine Eating Plan Prescriptions: Colchicine 0.6 mg PO Q2HR #20 Indomethacin [Indocin] 25 mg PO Q8H #15 cap Referrals: [facility] [Provider Group] - 3-5 Days
[2022-03-14 03:23] VITALS: BP 163/88
== END 2022-03-14 03:25 | disposition home or self-care (01) ==
LOC: ED 21:15
DX: M10.9 Gout, unspecified (principal); E11.9 Type 2 diabetes mellitus without complications; J45.909 Unspecified asthma, uncomplicated; F17.200 Nicotine dependence, unspecified, uncomplicated; Z88.0 Allergy status to penicillin; Z91.09 Other allergy status, other than to drugs and biological substances; Z79.899 Other long term (current) drug therapy
CPT/HCPCS: 99283